=== PATIENT | female | born 1940 | race Hispanic/Latino ===

== ENCOUNTER 2018-11-02 10:27 | Inpatient (IN) | payer MEDICARE, BC ==
--- NOTE | 2018-11-02 11:26 | RAD ---
Date of service: 11/02/2018 HISTORY: Upper abdominal pain COMPARISON: 12/12/2016 FINDINGS: LUNGS: The lungs are hyperinflated and there is peribronchial thickening with chronic changes in both lungs. No focal consolidation. PLEURA: No pleural effusions or pneumothorax. CARDIOVASCULAR: The heart is normal in size. There are aortic atherosclerotic calcifications present. OSSEOUS STRUCTURES: Within normal limits for the patient's age. VISUALIZED UPPER ABDOMEN: Normal. OTHER FINDINGS: None. IMPRESSION: No active pulmonary disease. COPD.
--- NOTE | 2018-11-02 11:44 | ED PDOC ---
Arrival/HPI - General Chief Complaint: Abdominal Pain Time Seen by Provider: 11/02/18 10:33 Historian: Patient - History of Present Illness Narrative History of Present Illness (Text): 11/02/18 13:57 78 year old female with PMH of COPD, hypothyroidism presents to the emergency department complaining of abdominal pain x 1 day. Pt states the pain is epigastric and radiates through to her back and into her chest, described as sh genesis. Admits to one episode of vomiting this morning. Of note, pt had cholecystectomy in 2012. Denies fevers, chills, urinary symptoms,diarrhea, vaginal bleeding, vaginal discharge, headache, weakness, numbness, paresthesias, altered mental status, rash, skin color changes, or any other associated sy mptoms. PMD: Dr. Pratt Past Medical History - Infectious Disease Hx of Infectious Diseases: None - Tetanus Immunization Tetanus Immunization: Unknown - Cardiac Hx Cardiac Disorders: Yes Hx Hypertension: Yes Hx Pacemaker: No - Pulmonary Hx Respiratory Disorders: Yes Hx Chronic Obstructive Pulmonary Disease (COPD): Yes Hx Emphysema: Yes - Neurological Hx Neurological Disorder: No Hx Paralysis: No - HEENT Hx HEENT Disorder: No Hx Blind: No Hx Cataracts: No Hx Deafness: No Hx Difficulty Chewing: No Hx Epistaxis: No Hx Glaucoma: No Hx Macular Degeneration: No - Renal Hx Renal Failure: No - Endocrine/Metabolic Hx Diabetes Mellitus Type 1: No Hx Diabetes Mellitus Type 2: No Hx Hypothyroidism: Yes (polyp on thyroid) - Hematological/Oncological Hx Blood Transfusions: No Hx Blood Transfusion Reaction: No - Integumentary Hx Dermatological Disorder: No Hx Basal Cell Carcinoma: No Hx Eczema: No Hx Melanoma: No Hx Psoriasis: No Hx Squamous Cell Carcinoma: No - Musculoskeletal/Rheumatological Hx Musculoskeletal Disorders: No - Gastrointestinal Hx Gastrointestinal Disorders: No Hx Colostomy: No Hx Crohn's Disease: No Hx Diverticulitis: No Hx Gall Bladder Disease: Yes (cholecystectomy 2012) Hx Gastroesophageal Reflux: No Hx Ileostomy: No Hx Liver Failure: No Hx Pancreatitis: No HX Swallowing Problems: No - Genitourinary/Gynecological Hx Genitourinary Disorders: No Hx Hematuria: No Hx Incontinence: No Hx Sexually Transmitted Diseases: No Hx Urinary Tract Infection: No - Psychiatric Hx Emotional Abuse: No Hx Physical Abuse: No Hx Substance Use: No - Surgical History Hx Cholecystectomy: Yes - Anesthesia Hx Anesthesia Reactions: No Hx Malignant Hyperthermia: No - Suicidal Assessment Feels Threatened In Home Enviroment: No Family/Social History - Physician Review Nursing Documentation Reviewed: Yes Family/Social History: No Known Family HX Smoking Status: Former Smoker Hx Alcohol Use: No Hx Substance Use: No Hx Substance Use Treatment: No Allergies/Home Meds Allergies/Adverse Reactions: Allergies Penicillins Allergy (Verified 11/02/18 10:29) SWELLING Home Medications: Home Meds Medication Instructions Recorded Confirmed Levothyroxine Sodium [Levothroid] 0.05 mg PO DAILY 09/30/13 11/02/18 Tiotropium [Spiriva] 18 mcg IH DAILY 09/30/13 11/02/18 Valsartan/Hydrochlorothiazide 1 tab PO DAILY 09/30/13 11/02/18 [Valsartan-Hctz 320-12.5 mg Tab] Verapamil [Calan SR Tab] 240 mg PO DAILY 09/30/13 11/02/18 Aspirin [Aspirin Chewable] 81 mg PO DAILY 07/02/16 11/02/18 Budesonide 1 mg IH BID PRN 07/02/16 11/02/18 Fluticasone/Salmeterol 100/50 1 puff IH Q12 PRN 07/02/16 07/05/16 [Advair Diskus 100/50] Formoterol Fumarate [Perforomist] 20 mcg IH BID 07/02/16 11/02/18 Omega3/Dha/Epa/Fish Oil/Vit D3 1 each PO DAILY 07/02/16 11/02/18 [Fish Oil + Vitamin D-3 Softgel] Advanced Multi Ea Chew Tablet 1 tab PO DAILY 11/02/18 11/02/18 Aricept 5 mg PO DAILY 11/02/18 11/02/18 Incruse Ellipta 1 inh INH PRN PRN 11/02/18 11/02/18 Pepcid 20 mg PO DAILY 11/02/18 11/02/18 Umeclidinium Mccune [Incruse 11/02/18 Ellipta] Review of Systems - Physician Review All systems were reviewed & negative as marked: Yes - Review of Systems Constitutional: Normal. absent: Fatigue Eyes: Normal. absent: Vision Changes ENT: Normal. absent: Sinus Congestion Respiratory: SOB. absent: Cough, Sputum Cardiovascular: Chest Pain. absent: Palpitations, Syncope Gastrointestinal: Abdominal Pain, Vomiting. absent: Stool Changes, Constipation, Diarrhea, Appetite Changes Genitourinary Female: Normal. absent: Dysuria, Frequency Musculoskeletal: Back Pain. absent: Neck Pain Skin: Normal. absent: Rash Neurological: Normal. absent: Headache, Dizziness, Disequilibrium Endocrine: Normal Hemo/Lymphatic: Normal Psychiatric: Normal Physical Exam Vital Signs Reviewed: Yes Vital Signs Temp Pulse Resp BP Pulse Ox 11/02/18 10:50 97.9 F 85 19 134/66 93 L Temperature: Afebrile Blood Pressure: Normal Pulse: Regular Respiratory Rate: Normal Appearance: Positive for: Well-Appearing, Non-Toxic, Comfortable Pain Distress: None Mental Status: Positive for: Alert and Oriented X 3 - Systems Exam Head: Present: Atraumatic, Normocephalic Pupils: Present: PERRL Extroacular Muscles: Present: EOMI Conjunctiva: Present: Normal Mouth: Present: Moist Mucous Membranes Neck: Present: Normal Range of Motion Respiratory/Chest: Present: Clear to Auscultation, Good Air Exchange. No: Respiratory Distress, Accessory Muscle Use Cardiovascular: Present: Regular Rate and Rhythm, Normal S1, S2. No: Murmurs Abdomen: Present: Tenderness (epigastric, periumbilical), Normal Bowel Sounds. No: Distention, Peritoneal Signs, Rebound, Guarding Back: Present: Normal Inspection. No: CVA Tenderness, Paraspinal Tenderness Upper Extremity: Present: Normal Inspection, Normal ROM, NORMAL PULSES, Neurovascularly Intact, Capillary Refill < 2s. No: Cyanosis, Edema, Tenderness, Swelling Lower Extremity: Present: Normal Inspection, NORMAL PULSES, Normal ROM, Neurovascularly Intact, Capillary Refill < 2 s. No: Edema, Tenderness, Swelling, Temperature Abnormalties Neurological: Present: GCS=15, CN II-XII Intact, Speech Normal, Motor Func Grossly Intact, Normal Sensory Function, Gait Normal Skin: Present: Warm, Dry, Normal Color. No: Rashes Psychiatric: Present: Alert, Oriented x 3, Normal Insight, Normal Concentration, Normal Affect, Normal Mood Medical Decision Making ED Course and Treatment: Initial Plan: * CBC, CMP * Coags * Troponin * BNP * CXR * EKG * CT Angio, dissection protocol Labwork significant for elevated LFTs, total bili, and leukocytosis; VBG shock panel ordered Case discussed with ED attending, Dr. Post, who recommends Flagyl, Cipro, and a direct bilirubin level UA shows UTI Lactate <2, pt afebrile with stable vitals, no indication for code sepsis CXR shows COPD changes, no consolidation EKG shows no acute changes US negative for acute pathology. CT negative for dissection but significant for a mass v. stone in common bile duct. 14:[address] Raman, admitting for Dr. Pratt, who accepts patient for inpatient admission to med/surg floor with diagnosis of choledocholithiasis, leukocytosis, UTI. Recommends GI and ID consult. Patient and family updated on change in disposition. Patient resting comfortably in stretcher with stable vital signs at this time. - Lab Interpretations Lab Results: 11/02/18 11:30 11/02/18 11:30 Lab Results 11/02/18 13:26: Urine Color Dark yellow, Urine Appearance Slight-cloudy, Urine pH 6.0, Ur Specific [place] 1.025, Urine Protein Trace H, Urine Glucose (UA) Negative, Urine Ketones Negative, Urine Blood Trace-intact H, Urine Nitrate Positive H, Urine Bilirubin Moderate H, Urine Urobilinogen 4.0 H, Ur Leukocyte Esterase Small H, Urine RBC 5 - 10 H, Urine WBC 10 - 15 H, Ur Epithelial Cells 6 - 8 H, Amorphous Sediment Few, Urine Bacteria Many, Urine Other Uyeast 11/02/18 13:15: Ammonia 13 11/02/18 13:15: pO2 50, VBG pH 7.47 H, VBG pCO2 33.0 L, VBG HCO3 24.0, VBG Total CO2 25.0, VBG O2 Sat (Calc) 92.0 H, VBG Base Excess 0.9, VBG Potassium 3.5 L, Glucose 157 H, Lactate 1.3, FiO2 21.0, Sodium 138.0, Chloride 104.0, Venous Blood Potassium 3.5 L 11/02/18 11:30: Direct Bilirubin 3.0 H 11/02/18 11:30: TSH 3rd Generation 0.33 L 11/02/18 11:30: Hepatitis A IgM Ab Negative, Hep Bs Antigen Negative, Hep B Core IgM Ab Negative, Hepatitis C Antibody Negative 11/02/18 11:30: Alpha Fetoprotein 4.9 11/02/18 11:30: PT 11.5, INR 1.02, APTT 32.4 11/02/18 11:30: Sodium 139, Potassium 3.9, Chloride 102, Carbon Dioxide 25, Anion Gap 15, BUN 26 H, Creatinine 0.8, Est GFR ( Amer) > 60, Est GFR (Non-Af Amer) > 60, Random Glucose 149 H, Calcium 10.0, Magnesium 1.9, Total Bilirubin 3.8 H, AST 522 H, ALT 466 H, Alkaline Phosphatase 442 H, Lactate Dehydrogenase 1472 H, Total Creatine Kinase 175, Troponin I < 0.01 D, NT-Pro-B Natriuret Pep 1140 H, Total Protein 8.8 H, Albumin 4.5, Globulin 4.3, Albumin/Globulin Ratio 1.1, Lipase 99 11/02/18 11:30: WBC 23.9 H, RBC 4.12, Hgb 13.5, Hct 39.3, MCV 95.4, MCH 32.8, MCHC 34.4, RDW 13.5, Plt Count 188, MPV 11.2 H, Neut % (Auto) 90.9 H, Lymph % (Auto) 3.0 L, [place] % (Auto) 6.1 H, Eos % (Auto) 0.0 L, Baso % (Auto) 0.0, Lymph # (Auto) 0.7 L, [place] # (Auto) 1.5 H, Eos # (Auto) 0.0, Baso # (Auto) 0.01, Absolute Neuts (auto) 21.75 H, Neutrophils % (Manual) 92 H, Band Neutrophils % 2, Lymphocytes % (Manual) 5 L, Monocytes % (Manual) 1, Platelet Evaluation Normal, Anisocytosis (manual) Slight I have reviewed the lab results: Yes - RAD Interpretation Narrative RAD Interpretations (Text): 11/02/18 13:45 Abdominal US: FINDINGS: LIVER: Measures 13.5 cm. There is diffuse increased echogenicity of the liver parenchyma. No mass. No intrahepatic bile duct dilatation. GALLBLADDER: Surgically absent. COMMON BILE DUCT: Measures 1.7 mm. No stones. No dilatation. PANCREAS: Unremarkable as visualized. No mass. No ductal dilatation. RIGHT KIDNEY: Measures 9.9cm. Normal echogenicity. No calculus, mass, or hydronephrosis. LEFT KIDNEY: Measures 9.9cm. Normal echogenicity. No calculus, mass, or hydronephrosis. SPLEEN: Normal in size and contour. No mass. AORTA: No aneurysmal dilatation. IVC: Unremarkable. OTHER FINDINGS: None. IMPRESSION: Fatty liver. Status post cholecystectomy. CT Dissection Protocol: FINDINGS: CT ANGIOGRAPHY OF THE CHEST WITH & WITHOUT CONTRAST: AORTA (CHEST AND ABDOMEN): The thoracic and abdominal aorta are unremarkable, without aneurysm, dissection or rupture. No intramural thrombus identified in the thoracic aorta on the non-contrast ct of the chest. There are atherosclerotic calcifications at the origin of the celiac axis, superior mesenteric and renal arteries without significant narrowing. The celiac axis, superior mesenteric artery, inferior mesenteric artery and the renal arteries are widely patent. The pelvic arteries are unremarkable. LUNGS: The lungs are well inflated. There is centrilobular emphysema in the upper lobes. No nodules, mass or consolidation. There are no endobronchial lesions. There is bibasilar atelectasis and linear subsegmental atelectasis in the left lower lobe. MEDIASTINUM: No pericardial effusion. Normal caliber aorta and pulmonary arterial trunk. No aortic dissection. Mild cardiomegaly. LYMPH NODES: No pathologic lymphadenopathy. PLEURA: No pneumothorax. No pleural fluid. BONES: Within normal limits for the patient's age. OTHER FINDINGS: None. CT ANGIOGRAPHY OF THE ABDOMEN AND PELVIS WITH CONTRAST: LIVER: Allowing for angiographic face, there is patchy low-attenuation in the liver. There is mild intrahepatic ductal dilatation and pneumobilia likely related to prior sphincterotomy. There is severe diffuse dilatation of the common bile duct which measures 2.3 cm in maximum diameter. There is an apparent 1.4 x 2.1 cm hyperdense obstructing lesion in the distal common bile duct. GALLBLADDER AND BILE DUCTS: Surgically absent. PANCREAS: Mild fatty atrophy of the pancreas. No gross lesion or ductal dilatation. SPLEEN: Normal in size with homogeneous enhancement. ADRENALS: No discrete nodule. KIDNEYS AND URETERS: The kidneys are normal in size with homogeneous enhancement. VASCULATURE: There are advanced aortic atherosclerotic aortoiliac calcifications present. STOMACH AND BOWEL: The small bowel loops are normal in caliber. There is left colonic diverticulosis, more extensive in the sigmoid colon without CT evidence for acute diverticulitis. APPENDIX: Normal appendix. PERITONEUM: Unremarkable. No free fluid. No free air. LYMPH NODES: Unremarkable. No enlarged lymph nodes. BLADDER: Grossly normal in appearance. REPRODUCTIVE: The uterus is normal in size. BONES: No acute fracture. Within normal limits for the patient's age. OTHER FINDINGS: None. IMPRESSION: 1. No CT evidence for aortic aneurysm or aortic dissection. 2. Although tailored for evaluation of aortic dissection, no evidence for acute pulmonary embolism. 3. Centrilobular emphysema in the upper lobes of the lungs. 4. Patchy fatty liver. 5. Severe diffuse dilatation of the common bile duct with a 1.4 x 2.1 cm obstructing lesion in the distal common bile duct which may represent soft tissue mass versus noncalcified stone. Mild intrahepatic biliary ductal dilatation. Pneumobilia likely related to prior spin Corin me. Correlation with ERCP is advised. 6. Sigmoid diverticulosis without CT evidence for acute diverticulitis. Radiology Orders: 11/02/18 10:52 CHEST PORTABLE [RAD] Stat 11/02/18 10:57 ANGIOGRAPHY DISECTION PROTOCOL [CT] Stat - EKG Interpretation EKG Interpretation (Text): Rate 84; NSR with 1st degree AV block; No STEMI or other signs of acute ischemia Interpreted by ED Physician: Yes Type: 12 lead EKG Disposition/Present on Arrival - Present on Arrival Any Indicators Present on Arrival: No History of DVT/PE: No History of Uncontrolled Diabetes: No Urinary Catheter: No History of Decub. Ulcer: No History Surgical Site Infection Following: None - Disposition Have Diagnosis and Disposition been Completed?: Yes Diagnosis: Choledocholithiasis, Leukocytosis, Elevated LFTs, UTI (urinary tract infection) Disposition: HOSPITALIZED Disposition Time: 14:45 Patient Problems: Current Active Problems Problem Status Onset Choledocholithiasis Acute Elevated LFTs Acute Leukocytosis Acute UTI (urinary tract infection) Acute Condition: STABLE
[2018-11-02 11:56] LABS: BASO # 0.01 K/mm3 (0.0-2.0); HEMOGLOBIN 13.5 g/dL (12.0-16.0); LYMPH # 0.7 (1.2-3.4); MEAN CELL VOLUME 95.4 fl (80.0-105.0); MEAN CORPUSCULAR HEMOGLOBIN 32.8 pg (25.0-35.0); MEAN CORPUSCULAR HGB CONC 34.4 g/dl (31.0-37.0); MEAN PLATELET VOLUME 11.2 fl (7.0-11.0); MONO # 1.5 (0.1-0.6); MONO % 6.1 % (1.0-6.0); PLATELET COUNT 188 10^3/uL (120.0-450.0); RBC 4.12 10^6/uL (3.5-6.1); RED CELL DISTRIBUTION WIDTH 13.5 % (11.5-14.5); WHITE BLOOD COUNT 23.9 10^3/uL (4.5-11.0)
[2018-11-02 12:12] LABS: INR 1.02; PARTIAL THROMBOPLASTIN TIME 32.4 Seconds (26.9-38.3); PROTHROMBIN TIME 11.5 SECONDS (9.4-12.5)
[2018-11-02 12:20] LABS: ALB/GLOB RATIO 1.1 (1.1-1.8); ALBUMIN 4.5 g/dL (3.0-4.8); ALT/SGPT 466 U/L (7-56); AST/SGOT 522 U/L (14-36); BLOOD UREA NITROGEN 26 mg/dL (7-21); GFR NON-AFRICAN AMERICAN > 60; LIPASE 99 U/L (23-300)
[2018-11-02 12:28] LABS: ANISOCYTOSIS SLIGHT; BAND 2 % (0-2); LYMPHOCYTE 5 % (22.0-35.0); MONOCYTE 1 % (1.0-6.0); NEUTROPHIL 92 % (50.0-70.0); PLATELET ESTIMATE NORMAL (NORMAL)
[2018-11-02 12:36] LABS: B-TYPE NATRIURETIC PEPTIDE 1140 pg/mL (0-450); TROPONIN I < 0.01 ng/mL
[2018-11-02] MEDS ORDERED: Ciprofloxacin 400mg/200ml D5W 400 MG/200 ML BAG IVPB STA (12:47)
[2018-11-02] MEDS ORDERED: metroNIDAZOLE IV 500 mg/100 ml 500 MG/100 ML BAG IVPB STA (12:47)
--- NOTE | 2018-11-02 13:31 | US ---
Date of service: 11/02/2018 HISTORY: elevated LFT, epigastric pain COMPARISON: None. TECHNIQUE: Grayscale imaging was performed. FINDINGS: LIVER: Measures 13.5 cm. There is diffuse increased echogenicity of the liver parenchyma. No mass. No intrahepatic bile duct dilatation. GALLBLADDER: Surgically absent. COMMON BILE DUCT: Measures 1.7 mm. No stones. No dilatation. PANCREAS: Unremarkable as visualized. No mass. No ductal dilatation. RIGHT KIDNEY: Measures 9.9cm. Normal echogenicity. No calculus, mass, or hydronephrosis. LEFT KIDNEY: Measures 9.9cm. Normal echogenicity. No calculus, mass, or hydronephrosis. SPLEEN: Normal in size and contour. No mass. AORTA: No aneurysmal dilatation. IVC: Unremarkable. OTHER FINDINGS: None. IMPRESSION: Fatty liver. Status post cholecystectomy.
[2018-11-02 13:32] LABS: VENOUS BLOOD GAS BASE EXCESS 0.9 mmol/L (0.0-2.0); VENOUS BLOOD GAS PO2 50 mm/Hg (30-55); VENOUS BLOOD PH 7.47 (7.32-7.43)
[2018-11-02 13:45] LABS: URINE APPEARANCE SLIGHT-CLOUDY (CLEAR); URINE BILIRUBIN MODERATE (NEGATIVE); URINE BLOOD TRACE-INTACT (NEGATIVE); URINE COLOR DARK YELLOW (YELLOW); URINE GLUCOSE (UA) NEGATIVE (NEGATIVE); URINE LEUKOCYTE ESTERASE SMALL Leu/uL (NEGATIVE); URINE PROTEIN TRACE mg/dL (<30 mg/dL)
[2018-11-02 13:48] LABS: URINE AMORPHOUS SEDIMENT FEW /hpf; URINE BACTERIA MANY /hpf
--- NOTE | 2018-11-02 14:17 | CT ---
PROCEDURE: CT Angiography Chest, Abdomen and Pelvis with and without intravenous contrast HISTORY: abdominal, back, chest pain COMPARISON: None. TECHNIQUE: Contiguous axial images of the chest, abdomen and pelvis were obtained in the phase of aortic enhancement. A noncontrast enhanced CT of the chest was also obtained to evaluate for possible intramural thrombus. Coronal and sagittal reformats were generated. IV dose administered: 150 mL Omnipaque 350 Radiation dose: Total exam DLP = 1048.27 mGy-cm. This CT exam was performed using one or more of the following dose reduction techniques: Automated exposure control, adjustment of the mA and/or kV according to patient size, and/or use of iterative reconstruction technique. FINDINGS: CT ANGIOGRAPHY OF THE CHEST WITH & WITHOUT CONTRAST: AORTA (CHEST AND ABDOMEN): The thoracic and abdominal aorta are unremarkable, without aneurysm, dissection or rupture. No intramural thrombus identified in the thoracic aorta on the non-contrast ct of the chest. There are atherosclerotic calcifications at the origin of the celiac axis, superior mesenteric and renal arteries without significant narrowing. The celiac axis, superior mesenteric artery, inferior mesenteric artery and the renal arteries are widely patent. The pelvic arteries are unremarkable. LUNGS: The lungs are well inflated. There is centrilobular emphysema in the upper lobes. No nodules, mass or consolidation. There are no endobronchial lesions. There is bibasilar atelectasis and linear subsegmental atelectasis in the left lower lobe. MEDIASTINUM: No pericardial effusion. Normal caliber aorta and pulmonary arterial trunk. No aortic dissection. Mild cardiomegaly. LYMPH NODES: No pathologic lymphadenopathy. PLEURA: No pneumothorax. No pleural fluid. BONES: Within normal limits for the patient's age. OTHER FINDINGS: None. CT ANGIOGRAPHY OF THE ABDOMEN AND PELVIS WITH CONTRAST: LIVER: Allowing for angiographic face, there is patchy low-attenuation in the liver. There is mild intrahepatic ductal dilatation and pneumobilia likely related to prior sphincterotomy. There is severe diffuse dilatation of the common bile duct which measures 2.3 cm in maximum diameter. There is an apparent 1.4 x 2.1 cm hyperdense obstructing lesion in the distal common bile duct. GALLBLADDER AND BILE DUCTS: Surgically absent. PANCREAS: Mild fatty atrophy of the pancreas. No gross lesion or ductal dilatation. SPLEEN: Normal in size with homogeneous enhancement. ADRENALS: No discrete nodule. KIDNEYS AND URETERS: The kidneys are normal in size with homogeneous enhancement. VASCULATURE: There are advanced aortic atherosclerotic aortoiliac calcifications present. STOMACH AND BOWEL: The small bowel loops are normal in caliber. There is left colonic diverticulosis, more extensive in the sigmoid colon without CT evidence for acute diverticulitis. APPENDIX: Normal appendix. PERITONEUM: Unremarkable. No free fluid. No free air. LYMPH NODES: Unremarkable. No enlarged lymph nodes. BLADDER: Grossly normal in appearance. REPRODUCTIVE: The uterus is normal in size. BONES: No acute fracture. Within normal limits for the patient's age. OTHER FINDINGS: None. IMPRESSION: 1. No CT evidence for aortic aneurysm or aortic dissection. 2. Although tailored for evaluation of aortic dissection, no evidence for acute pulmonary embolism. 3. Centrilobular emphysema in the upper lobes of the lungs. 4. Patchy fatty liver. 5. Severe diffuse dilatation of the common bile duct with a 1.4 x 2.1 cm obstructing lesion in the distal common bile duct which may represent soft tissue mass versus noncalcified stone. Mild intrahepatic biliary ductal dilatation. Pneumobilia likely related to prior spin Corin me. Correlation with ERCP is advised. 6. Sigmoid diverticulosis without CT evidence for acute diverticulitis.
[2018-11-02] MEDS ORDERED: HYDROCHLOROTHIAZIDE PO SCH (15:00)
[2018-11-02] MEDS ORDERED: [UNRECOGNIZED DRUG - OTHER] PO SCH (15:00)
[2018-11-02] MEDS ORDERED: VALSARTAN PO SCH (15:00)
[2018-11-02] MEDS ORDERED: Verapamil 240 mg ER Tab PO SCH (15:00)
[2018-11-02] MEDS: Levothyroxine 50 MCG TAB PO SCH ×2 (15:38→16:57)
[2018-11-02] MEDS: Meropenem IV 1 gm in NS 1 GM/50 ML BAG IVPB SCH ×2 (16:57→21:15)
[2018-11-02] MEDS: Dextrose 5%/0.45% NS 1,000 ML IV SCH (17:16)
[2018-11-02 17:20] LABS: HEPATITIS B SURFACE AG Negative (NEGATIVE)
[2018-11-02 17:26] LABS: HEPATITIS A IGM NEGATIVE (NEGATIVE); HEPATITIS B CORE AB NEGATIVE (NEGATIVE)
[2018-11-02 17:30] VITALS: BMI 25.3
[2018-11-02 17:37] LABS: HEPATITIS C ANTIBODY NEGATIVE (NEGATIVE)
[2018-11-02] MEDS: Morphine 2 mg/ml ISec IVP PRN (19:10)
--- NOTE | 2018-11-02 20:39 | CARD ---
APPROVED REPORT Date of service: 11/02/2018 EKG Measurement Heart [id number] <Conclusion> Sinus rhythm with 1st degree AV block Minor NDSTT abnormalities Otherwise normal ECG
--- NOTE | 2018-11-02 22:45 | CON ---
DATE: 11/02/2018 The patient is in the emergency room. CHIEF COMPLAINT: Abdominal pain x1 day. HISTORY: This is a 78-year-old female with a history of end-stage chronic obstructive lung disease, emphysema, hypothyroidism, hypertension, coronary artery disease, history of cholecystectomy, who is admitted through the emergency room complaining of abdominal pain. The patient states that she had some nausea and some abdominal pain, epigastric in location, radiating to her back and to her chest, is described as sharp, associated with vomiting, nausea. She denies any fevers, any chills. No urinary symptoms. No diarrhea. No symptoms. No neurological symptoms. No headaches or blurred vision. REVIEW OF SYSTEMS: Twelve-point review of systems is performed. PAST MEDICAL HISTORY: Significant for hypertension, coronary artery disease, chronic obstructive lung disease, hypothyroidism. PAST SURGICAL HISTORY: Significant for cholecystectomy in 2012. ALLERGIES: THE PATIENT IS ALLERGIC TO PENICILLIN, SHE STATES SHE DEVELOPED A RASH ONCE. MEDICATIONS AT HOME: Include the patient to be on aspirin, Levothroid, valsartan, omeprazole. PHYSICAL EXAMINATION: GENERAL: She is in bed, appearing weak. VITAL SIGNS: Temperature of 97.9, heart rate of 96, respiratory rate of 19, blood pressure is 130/60 with O2 saturation of 93%. HEENT: Unremarkable. NECK: Supple. LUNGS: Have decreased breath sounds. HEART: Normal S1, S2. ABDOMEN: Right upper quadrant tenderness. No rebound or guarding. No masses. LABORATORY EXAMINATION: Reveals a white count of 23,900, hemoglobin of 13, platelets of 188. Coagulation is noted. Chemistries reveal the LFTs are elevated, BUN of 26, creatinine of 0.8. BNP is 1140. Urinalysis is noted, 10-15 WBCs. CAT scan is reviewed and noted. The patient also had an abdominal ultrasound which is also reviewed. The emergency room chart is reviewed. ASSESSMENT AND PLAN: A 78-year-old female with chronic obstructive lung disease, emphysema, hypothyroidism, hypertension, coronary artery disease, history of cholecystectomy in 2012, admitted now with right upper quadrant pain, leukocytosis, tachycardia, liver function test elevation, hypoxia with severe sepsis and ascending cholangitis and retained common bile duct stone probably, and THE PATIENT IS ALLERGIC TO PENICILLIN. We will start meropenem, order blood cultures and urine culture, surgical consultation and GI consultation, and we will follow closely with you. Dhaval Pérez MD
--- NOTE | 2018-11-03 02:55 | CON ---
DATE: 11/02/2018 REASON FOR CONSULTATION: Abdominal pain and elevated LFTs. HISTORY OF PRESENT ILLNESS: This 78-year-old patient was seen and evaluated earlier. The patient's daughter was at the bedside at the time of examination. This patient complained of acute onset of nausea and abdominal pain, started yesterday night, persisted in the morning, worsening of the symptoms. She described the pain mainly in the epigastric area and lower chest radiating to the back. The patient did have a CT with aortic dissection protocol in the ER. Denies any fever. PAST MEDICAL HISTORY: Other past medical history significant for history of CBD stone status post ERCP and removal of the stone, history of chronic gastroesophageal reflux disease, Knowles's, history of esophageal ulceration, coronary artery disease, COPD, hypothyroidism. PAST SURGICAL HISTORY: Significant for status post cholecystectomy in 2012. ALLERGIES: ALLERGIC TO PENICILLIN. SOCIAL HISTORY: She is an ex-smoker. Denies alcohol use. REVIEW OF SYSTEMS: Positive as above. Other systems reviewed. No dysuria and no increased frequency. No history of fever. PHYSICAL EXAMINATION GENERAL: The patient is lying on the bed, not in acute distress. VITAL SIGNS: Pulse 91 per minute, blood pressure 122/82, respiration is 18, temperature is 99.4, O2 saturation 99%. HEENT: Atraumatic and anicteric. NECK: Supple. HEART: S1 and S2 heard. LUNGS: Bilateral air entry present. ABDOMEN: Soft. There is mild present epigastric area. EXTREMITIES: No cyanosis. No clubbing. NEUROLOGIC: Alert and oriented, moves all extremities. LABORATORY DATA: WBC count elevated to 29.3, hemoglobin 13.5, hematocrit 39.3, platelet count 188,000. Chemistries; AST of 522, ALT 466, alkaline phosphatase 442. Total bilirubin is 3.8, direct bilirubin 3. The patient did have an ultrasound scan of the abdomen, it is reported as common bile duct dilated to 1.7 cm. There is no evidence of intraluminal lesions or gallstones noticed. The patient did have CT angio done, which was negative for dissection. There is some calcification noticed at the origin of the celiac disease superior mesenteric artery; otherwise patent. Negative for acute aortic dissection. is noticed in the distal common bile duct area, that is the noticed. IMPRESSION: This 78-year-old patient with a history of and the patient admitted with lower chest pain epigastric area radiating to the back. The CT ultrasound shows common bile duct intraluminal defect. The patient's differential diagnosis includes common bile duct stone, less likely gallbladder malignancy also to be considered. The patient did have endoscopic retrograde cholangiopancreatography/sphincterotomy and removal of the stones many years ago. Other comorbidities include chronic obstructive pulmonary disease, hypothyroidism, hypertension, coronary artery disease. RECOMMENDATIONS: 1. Follow up with dixon cultures. 2. Would recommend MRCP to further evaluate the common bile duct. 3. Would benefit from the ERCP EUS. Thank you very much for allowing us to participate in the care of the patient. We will continue the antibiotics as per ID. Agustin Meek MD
[2018-11-03] MEDS: Meropenem IV 1 gm in NS 1 GM/50 ML BAG IVPB SCH ×2 (05:30→21:13)
[2018-11-03] MEDS: Morphine 2 mg/ml ISec IVP PRN (06:39)
[2018-11-03 07:02] LABS: HEMOGLOBIN 11.1 g/dL (12.0-16.0); MEAN CELL VOLUME 94.5 fl (80.0-105.0); MEAN CORPUSCULAR HEMOGLOBIN 32.4 pg (25.0-35.0); MEAN CORPUSCULAR HGB CONC 34.3 g/dl (31.0-37.0); MEAN PLATELET VOLUME 11.4 fl (7.0-11.0); RBC 3.43 10^6/uL (3.5-6.1); RED CELL DISTRIBUTION WIDTH 14.1 % (11.5-14.5)
[2018-11-03] MEDS: Dextrose 5%/0.45% NS 1,000 ML IV SCH (07:15)
[2018-11-03 07:31] LABS: WHITE BLOOD COUNT 37.9 10^3/uL (4.5-11.0)
--- NOTE | 2018-11-03 07:41 | CP.PCM.PN ---
Subjective - Date & Time of Evaluation Date of Evaluation: 11/03/18 Time of Evaluation: 07:41 Objective - Vital Signs/Intake and Output Vital Signs (last 24 hours): Temp Pulse Resp BP Pulse Ox 99.4 F 72 18 122/82 99 11/02/18 16:40 11/02/18 17:11 11/02/18 17:11 11/02/18 16:57 11/02/18 16:40 Intake and Output: 11/03/18 11/03/18 06:59 18:59 Intake Total 120 Balance 120 - Medications Medications: Current Medications Aspirin (Aspirin Chewable) 81 mg PO DAILY [facility] Last Admin: 11/02/18 15:38 Dose: Not Given Hydrochlorothiazide (Microzide) 12.5 mg PO DAILY [facility] Last Admin: 11/02/18 16:59 Dose: 12.5 mg Meropenem (Merrem Iv 1 Gm Premix) 1 gm in 50 mls @ 100 mls/hr IVPB Q8 [facility]; Protocol Stop: 11/10/18 16:01 Last Admin: 11/03/18 05:30 Dose: 100 mls/hr Dextrose/Sodium Chloride (Dextrose 5%/0.45% Ns 1000 Ml) 1,000 mls @ 100 mls/hr IV .Q10H [facility] Last Admin: 11/03/18 07:15 Dose: 100 mls/hr Levothyroxine Sodium (Synthroid) 50 mcg PO DAILY [facility] Last Admin: 11/02/18 16:57 Dose: 50 mcg Morphine Sulfate (Morphine) 2 mg IVP Q4H PRN PRN Reason: Pain, severe (8-10) Last Admin: 11/03/18 06:39 Dose: 2 mg Ondansetron HCl (Zofran Inj) 4 mg IVP Q6H PRN PRN Reason: Nausea/Vomiting Last Admin: 11/02/18 18:21 Dose: 4 mg Valsartan (Diovan) 320 mg PO DAILY [facility] Last Admin: 11/02/18 16:57 Dose: 320 mg Verapamil HCl (Calan Sr Tab) 240 mg PO DAILY [facility] Last Admin: 11/02/18 16:57 Dose: 240 mg - Labs Labs: 11/03/18 06:30 11/02/18 11:30 PT 11.5 SECONDS (9.4-12.5) 11/02/18 11:30 INR 1.02 11/02/18 11:30 APTT 32.4 Seconds (26.9-38.3) 11/02/18 11:30
[2018-11-03 08:18] LABS: ALBUMIN 3.4 g/dL (3.0-4.8); CALCIUM 8.8 mg/dL (8.4-10.5)
[2018-11-03] MEDS ORDERED: Magnesium Sulfate 1 gm in D5W 1 GM/100 ML BAG IVPB ONE (08:59)
[2018-11-03] MEDS: Sodium Chloride 0.9% 1,000 ML IV SCH ×2 (09:15→22:00)
--- NOTE | 2018-11-03 10:18 | CP.PCM.HP ---
<Mercy Maldonado - Last Filed: 11/03/18 17:36> History of Present Illness - History of Present Illness History of Present Illness: Mercy Maldonado, PGY2, H&P for Dr Webb: CC: abdominal pain This is a 78 year old female with PMH cholecystectomy, CBD stone s/p ERCP, presents to ED for abdominal pain for 1 day. Patient describes the pain as epigastric, radiating to her back and into her chest, described as sharp. Reports one episode of vomiting. Denies fevers, chills, urinary symptoms, short ness of breath, jaundice/yellowing of skin, headache, leg swelling, neck pain, weakness, mental status changes. In ED, patient found to have CBD dilatation on imaging with elevated wbc, elevated LFTs, hyperbilirubinemia, ALP elevation. PMD: Dr. Pratt 12 point ROS obtained and negative, except as per HPI. PMH: COPD, hypothyroidism, chronic GERD, history of CBD stone s/p ERCP and removal of stone PSH: cholecystectomy (2012) All: PCN FH: noncontributory SH: prior smoker, no alcohol/drug use. Present on Admission - Present on Admission Any Indicators Present on Admission: No History of DVT/PE: No History of Uncontrolled Diabetes: No Urinary Catheter: No Decubitus Ulcer Present: No Review of Systems - Review of Systems All systems: reviewed and no additional remarkable complaints except Review of Systems: as per hPI Past Patient History - Infectious Disease Hx of Infectious Diseases: None - Tetanus Immunizations Tetanus Immunization: Unknown - Past Social History Smoking Status: Former Smoker - CARDIAC Hx Cardiac Disorders: Yes Hx Hypertension: Yes Hx Pacemaker: No - PULMONARY Hx Respiratory Disorders: Yes Hx Chronic Obstructive Pulmonary Disease (COPD): Yes Hx Emphysema: Yes - NEUROLOGICAL Hx Neurological Disorder: No - HEENT Hx HEENT Problems: No Hx Blind: No Hx Cataracts: No Hx Deafness: No Hx Difficulty Chewing: No Hx Epistaxis: No Hx Glaucoma: No Hx Macular Degeneration: No - RENAL Hx Renal Failure: No - ENDOCRINE/METABOLIC Hx Endocrine Disorders: Yes Hx Diabetes Mellitus Type 1: No Hx Diabetes Mellitus Type 2: No Hx Hypothyroidism: Yes (polyp on thyroid) - HEMATOLOGICAL/ONCOLOGICAL Hx Blood Disorders: No Hx AIDS: No Hx Anemia: No Hx Chemotherapy: No Hx Cirrhosis: No Hx Hepatitis A: No Hx Hepatitis B: No Hx Hepatitis C: No Hx Metastesis: No Hx Shingles: No Hx Unexplained Bleeding: No - INTEGUMENTARY Hx Dermatological Problems: No Hx Basil Cell: No Hx Eczema: No Hx Melanoma: No Hx Psoriasis: No Hx Squamous Cell: No - MUSCULOSKELETAL/RHEUMATOLOGICAL Hx Falls: No Hx Unsteady Gait: Yes (ambulates with cane) - GASTROINTESTINAL Hx Gastrointestinal Disorders: Yes Hx Colostomy: No Hx Crohn's Disease: No Hx Diverticulitis: No Hx Gall Bladder Disease: Yes (cholecystectomy 2012) Hx Gastroesophageal Reflux: No Hx Ileostomy: No Hx Liver Failure: No Hx Pancreatitis: No HX Swallowing Problems: No - GENITOURINARY/GYNECOLOGICAL Hx Genitourinary Disorders: No Hx Hematuria: No Hx Incontinence: No Hx Sexually Transmitted Disorders: No Hx Urinary Tract Infection: No - PSYCHIATRIC Hx Psychophysiologic Disorder: No Hx Emotional Abuse: No Hx Physical Abuse: No Hx Substance Use: No - SURGICAL HISTORY Hx Surgeries: Yes Hx Cholecystectomy: Yes - ANESTHESIA Hx Anesthesia Reactions: No Hx Malignant Hyperthermia: No Meds Allergies/Adverse Reactions: Allergies Allergy/AdvReac Type Severity Reaction Status Date / Time Penicillins Allergy SWELLING Verified 11/02/18 10:29 Physical Exam - Constitutional Appears: Non-toxic - Head Exam Head Exam: ATRAUMATIC, NORMOCEPHALIC - Eye Exam Eye Exam: EOMI. absent: Nystagmus, Scleral icterus Pupil Exam: PERRL. absent: Miosis, Mydriatic - ENT Exam ENT Exam: Mucous Membranes Moist - Neck Exam Neck exam: Positive for: Full Rom - Respiratory Exam Respiratory Exam: Clear to Auscultation Bilateral. absent: Accessory Muscle Use, Wheezes, Respiratory Distress - Cardiovascular Exam Cardiovascular Exam: RRR, +S1, +S2. absent: Systolic Murmur - GI/Abdominal Exam GI & Abdominal Exam: Hyperactive Bowel Sounds, Tenderness - Extremities Exam Extremities exam: Positive for: normal inspection. Negative for: pedal edema - Back Exam Back exam: NORMAL INSPECTION - Neurological Exam Neurological exam: Alert, Oriented x3 - Psychiatric Exam Psychiatric exam: Normal Affect, Normal Mood - Skin Skin Exam: Dry, Warm Results - Vital Signs Recent Vital Signs: Last Vital Signs Temp 98.4 F 11/03/18 06:00 Pulse 81 11/03/18 06:00 Resp 20 11/03/18 06:00 BP 92/51 L 11/03/18 06:00 Pulse Ox 95 11/03/18 06:00 - Labs Result Diagrams: 11/03/18 06:30 11/03/18 06:30 Labs: Laboratory Results - last 24 hr 11/02/18 11/02/18 11/02/18 11:30 11:30 11:30 WBC 23.9 H RBC 4.12 Hgb 13.5 Hct 39.3 MCV 95.4 MCH 32.8 MCHC 34.4 RDW 13.5 Plt Count 188 MPV 11.2 H Neut % (Auto) 90.9 H Lymph % (Auto) 3.0 L [place] % (Auto) 6.1 H Eos % (Auto) 0.0 L Baso % (Auto) 0.0 Lymph # (Auto) 0.7 L [place] # (Auto) 1.5 H Eos # (Auto) 0.0 Baso # (Auto) 0.01 Absolute Neuts (auto) 21.75 H Neutrophils % (Manual) 92 H Band Neutrophils % 2 Lymphocytes % (Manual) 5 L Monocytes % (Manual) 1 Platelet Evaluation Normal Anisocytosis (manual) Slight PT 11.5 INR 1.02 APTT 32.4 pO2 VBG pH VBG pCO2 VBG HCO3 VBG Total CO2 VBG O2 Sat (Calc) VBG Base Excess VBG Potassium Glucose Lactate FiO2 Sodium 139 Potassium 3.9 Chloride 102 Carbon Dioxide 25 Anion Gap 15 BUN 26 H Creatinine 0.8 Est GFR ( Amer) > 60 Est GFR (Non-Af Amer) > 60 Random Glucose 149 H Calcium 10.0 Phosphorus Magnesium 1.9 Total Bilirubin 3.8 H Direct Bilirubin AST 522 H ALT 466 H Alkaline Phosphatase 442 H Ammonia Lactate Dehydrogenase 1472 H Total Creatine Kinase 175 Troponin I < 0.01 D NT-Pro-B Natriuret Pep 1140 H Total Protein 8.8 H Albumin 4.5 Globulin 4.3 Albumin/Globulin Ratio 1.1 Lipase 99 Alpha Fetoprotein TSH 3rd Generation Venous Blood Potassium Urine Color Urine Appearance Urine pH Ur Specific [place] Urine Protein Urine Glucose (UA) Urine Ketones Urine Blood Urine Nitrate Urine Bilirubin Urine Urobilinogen Ur Leukocyte Esterase Urine RBC Urine WBC Ur Epithelial Cells Amorphous Sediment Urine Bacteria Urine Other Hepatitis A IgM Ab Hep Bs Antigen Hep B Core IgM Ab Hepatitis C Antibody 11/02/18 11/02/18 11/02/18 11:30 11:30 11:30 WBC RBC Hgb Hct MCV MCH MCHC RDW Plt Count MPV Neut % (Auto) Lymph % (Auto) [place] % (Auto) Eos % (Auto) Baso % (Auto) Lymph # (Auto) [place] # (Auto) Eos # (Auto) Baso # (Auto) Absolute Neuts (auto) Neutrophils % (Manual) Band Neutrophils % Lymphocytes % (Manual) Monocytes % (Manual) Platelet Evaluation Anisocytosis (manual) PT INR APTT pO2 VBG pH VBG pCO2 VBG HCO3 VBG Total CO2 VBG O2 Sat (Calc) VBG Base Excess VBG Potassium Glucose Lactate FiO2 Sodium Potassium Chloride Carbon Dioxide Anion Gap BUN Creatinine Est GFR ( Amer) Est GFR (Non-Af Amer) Random Glucose Calcium Phosphorus Magnesium Total Bilirubin Direct Bilirubin AST ALT Alkaline Phosphatase Ammonia Lactate Dehydrogenase Total Creatine Kinase Troponin I NT-Pro-B Natriuret Pep Total Protein Albumin Globulin Albumin/Globulin Ratio Lipase Alpha Fetoprotein 4.9 TSH 3rd Generation 0.33 L Venous Blood Potassium Urine Color Urine Appearance Urine pH Ur Specific [place] Urine Protein Urine Glucose (UA) Urine Ketones Urine Blood Urine Nitrate Urine Bilirubin Urine Urobilinogen Ur Leukocyte Esterase Urine RBC Urine WBC Ur Epithelial Cells Amorphous Sediment Urine Bacteria Urine Other Hepatitis A IgM Ab Negative Hep Bs Antigen Negative Hep B Core IgM Ab Negative Hepatitis C Antibody Negative 11/02/18 11/02/18 11/02/18 11:30 13:15 13:15 WBC RBC Hgb Hct MCV MCH MCHC RDW Plt Count MPV Neut % (Auto) Lymph % (Auto) [place] % (Auto) Eos % (Auto) Baso % (Auto) Lymph # (Auto) [place] # (Auto) Eos # (Auto) Baso # (Auto) Absolute Neuts (auto) Neutrophils % (Manual) Band Neutrophils % Lymphocytes % (Manual) Monocytes % (Manual) Platelet Evaluation Anisocytosis (manual) PT INR APTT pO2 50 VBG pH 7.47 H VBG pCO2 33.0 L VBG HCO3 24.0 VBG Total CO2 25.0 VBG O2 Sat (Calc) 92.0 H VBG Base Excess 0.9 VBG Potassium 3.5 L Glucose 157 H Lactate 1.3 FiO2 21.0 Sodium 138.0 Potassium Chloride 104.0 Carbon Dioxide Anion Gap BUN Creatinine Est GFR ( Amer) Est GFR (Non-Af Amer) Random Glucose Calcium Phosphorus Magnesium Total Bilirubin Direct Bilirubin 3.0 H AST ALT Alkaline Phosphatase Ammonia 13 Lactate Dehydrogenase Total Creatine Kinase Troponin I NT-Pro-B Natriuret Pep Total Protein Albumin Globulin Albumin/Globulin Ratio Lipase Alpha Fetoprotein TSH 3rd Generation Venous Blood Potassium 3.5 L Urine Color Urine Appearance Urine pH Ur Specific [place] Urine Protein Urine Glucose (UA) Urine Ketones Urine Blood Urine Nitrate Urine Bilirubin Urine Urobilinogen Ur Leukocyte Esterase Urine RBC Urine WBC Ur Epithelial Cells Amorphous Sediment Urine Bacteria Urine Other Hepatitis A IgM Ab Hep Bs Antigen Hep B Core IgM Ab Hepatitis C Antibody 11/02/18 11/03/18 11/03/18 13:26 06:30 06:30 WBC 37.9 H* D RBC 3.43 L Hgb 11.1 L D Hct 32.4 L MCV 94.5 MCH 32.4 MCHC 34.3 RDW 14.1 Plt Count 138 MPV 11.4 H Neut % (Auto) Lymph % (Auto) [place] % (Auto) Eos % (Auto) Baso % (Auto) Lymph # (Auto) [place] # (Auto) Eos # (Auto) Baso # (Auto) Absolute Neuts (auto) Neutrophils % (Manual) Band Neutrophils % Lymphocytes % (Manual) Monocytes % (Manual) Platelet Evaluation Anisocytosis (manual) PT INR APTT pO2 VBG pH VBG pCO2 VBG HCO3 VBG Total CO2 VBG O2 Sat (Calc) VBG Base Excess VBG Potassium Glucose Lactate FiO2 Sodium 135 Potassium 4.1 Chloride 103 Carbon Dioxide 21 Anion Gap 16 BUN 40 H Creatinine 2.0 H Est GFR ( Amer) 29 Est GFR (Non-Af Amer) 24 Random Glucose 146 H Calcium 8.8 Phosphorus 3.4 Magnesium 1.6 L Total Bilirubin 5.5 H Direct Bilirubin AST 181 H D ALT 282 H Alkaline Phosphatase 298 H D Ammonia Lactate Dehydrogenase Total Creatine Kinase Troponin I NT-Pro-B Natriuret Pep Total Protein 6.8 Albumin 3.4 Globulin 3.4 Albumin/Globulin Ratio 1.0 L Lipase Alpha Fetoprotein TSH 3rd Generation Venous Blood Potassium Urine Color Dark yellow Urine Appearance Slight-cloudy Urine pH 6.0 Ur Specific [place] 1.025 Urine Protein Trace H Urine Glucose (UA) Negative Urine Ketones Negative Urine Blood Trace-intact H Urine Nitrate Positive H Urine Bilirubin Moderate H Urine Urobilinogen 4.0 H Ur Leukocyte Esterase Small H Urine RBC 5 - 10 H Urine WBC 10 - 15 H Ur Epithelial Cells 6 - 8 H Amorphous Sediment Few Urine Bacteria Many Urine Other Uyeast Hepatitis A IgM Ab Hep Bs Antigen Hep B Core IgM Ab Hepatitis C Antibody Assessment & Plan - Assessment and Plan (Free Text) Assessment: 1. Abdominal pain 2/2 ascending cholangitis - CT showed severe diffuse dilatation of the common bile duct with a 1.4 x 2.1 cm obstructing lesion in the distal common bile duct which may represent soft tissue mass versus noncalcified stone. Mild intrahepatic biliary ductal dilatation. Pneumobilia likely related to prior spin Corin me. Correlation with ERCP is advised. - GI Dr Meek consulted. Went for ERCP today, put in 10 Japanese 7 cm biliary stent, drained pus like material. difficult post extubation, patient subsequently transferred to ICU. - NPO - LFTs trending down today, monitor - acute hepatitis panel negative. - ID on board. On Merrem. - blood cultures 2/2 shows gram neg yaneli. - ICU management 2. ABILIO 2/2 medication induced vs sepsis - Cr 2.0 today (from 0.8 yesterday) - given toradol 15 mg IV overnight - low BP this AM as well - will stop anti-HTN - diovan and verapamil - monitor 3. Fatty liver - monitor LFTs 4. Hypomagnesemia - repleted - monitor 5. Low TSH - TSH 0.33, will obtain free T4 - home synthroid - monitor 6. UTI: - UA positive for UTI - urine culture growing gram neg yaneli - blood cultures 2/2 shows gram neg yaneli. - ID on board. on Merrem. PPX: protonix, SCDs Case discussed with Dr Webb. <Alen Webb S - Last Filed: 11/03/18 17:46> Results - Vital Signs Recent Vital Signs: Last Vital Signs Temp 96.9 F L 11/03/18 17:00 Pulse 93 H 11/03/18 17:00 Resp 14 11/03/18 17:00 BP 117/60 11/03/18 17:00 Pulse Ox 99 11/03/18 17:00 - Labs Result Diagrams: 11/03/18 06:30 11/03/18 06:30 Labs: Laboratory Results - last 24 hr 11/03/18 11/03/18 11/03/18 06:30 06:30 16:39 WBC 37.9 H* D RBC 3.43 L Hgb 11.1 L D Hct 32.4 L MCV 94.5 MCH 32.4 MCHC 34.3 RDW 14.1 Plt Count 138 MPV 11.4 H pCO2 48 H pO2 159.0 H HCO3 20.6 L ABG pH 7.24 L ABG Total CO2 22.1 ABG O2 Saturation 100.2 H ABG O2 Content 15.9 ABG Base Excess -6.8 L ABG Hemoglobin 11.5 L ABG Carboxyhemoglobin 2.2 H POC ABG HHb (Measured) -0.2 L ABG Methemoglobin 1.4 ABG O2 Capacity 15.9 L Hgb O2 Saturation 96.6 FiO2 50.0 Sodium 135 Potassium 4.1 Chloride 103 Carbon Dioxide 21 Anion Gap 16 BUN 40 H Creatinine 2.0 H Est GFR ( Amer) 29 Est GFR (Non-Af Amer) 24 Random Glucose 146 H Calcium 8.8 Phosphorus 3.4 Magnesium 1.6 L Total Bilirubin 5.5 H AST 181 H D ALT 282 H Alkaline Phosphatase 298 H D Total Protein 6.8 Albumin 3.4 Globulin 3.4 Albumin/Globulin Ratio 1.0 L Assessment & Plan - Assessment and Plan (Free Text) Assessment: Pt seen and examined by me. I have reviewed the note of the medical equipment repairer and I agree with it. I have discussed the assessment and plan with the resident. I have reviewed the medications and the last labs. Please see my dictated note.
[2018-11-03] MEDS: Levothyroxine 50 MCG TAB PO SCH (10:27)
[2018-11-03] MEDS ORDERED: Iohexol 240 (50 ml) ONE (11:02)
[2018-11-03] MEDS ORDERED: Glucagon Recombinant 1 mg Inj ONE (11:03)
--- NOTE | 2018-11-03 11:10 | CP.PCM.APN ---
Subjective - Date & Time of Evaluation Date of Evaluation: 11/03/18 Time of Evaluation: 08:30 - Subjective Subjective: Pt seen and examined at bedside. Denies abdominal pain, nausea or vomiting. Pt in no acute distress. Objective - Vital Signs/Intake and Output Vital Signs (last 24 hours): Temp Pulse Resp BP Pulse Ox 98.4 F 81 20 92/51 L 95 11/03/18 06:00 11/03/18 06:00 11/03/18 06:00 11/03/18 06:00 11/03/18 06:00 Intake and Output: 11/03/18 11/03/18 06:59 18:59 Intake Total 120 Balance 120 - Medications Medications: Current Medications Aspirin (Aspirin Chewable) 81 mg PO DAILY [facility] Last Admin: 11/03/18 10:26 Dose: Not Given Meropenem (Merrem Iv 1 Gm Premix) 1 gm in 50 mls @ 100 mls/hr IVPB Q8 [facility]; Protocol Stop: 11/10/18 16:01 Last Admin: 11/03/18 05:30 Dose: 100 mls/hr Sodium Chloride (Sodium Chloride 0.9%) 1,000 mls @ 75 mls/hr IV .[id number] [facility] Stop: 11/04/18 11:54 Levothyroxine Sodium (Synthroid) 50 mcg PO DAILY [facility] Last Admin: 11/03/18 10:27 Dose: Not Given Morphine Sulfate (Morphine) 2 mg IVP Q4H PRN PRN Reason: Pain, severe (8-10) Last Admin: 11/03/18 06:39 Dose: 2 mg Ondansetron HCl (Zofran Inj) 4 mg IVP Q6H PRN PRN Reason: Nausea/Vomiting Last Admin: 11/02/18 18:21 Dose: 4 mg - Labs Labs: 11/03/18 06:30 11/03/18 06:30 PT 11.5 SECONDS (9.4-12.5) 11/02/18 11:30 INR 1.02 11/02/18 11:30 APTT 32.4 Seconds (26.9-38.3) 11/02/18 11:30 - Constitutional Appears: No Acute Distress - Head Exam Head Exam: ATRAUMATIC - Respiratory Exam Respiratory Exam: Clear to Ausculation Bilateral, NORMAL BREATHING PATTERN - Cardiovascular Exam Cardiovascular Exam: REGULAR RHYTHM, +S1, +S2 - GI/Abdominal Exam GI & Abdominal Exam: Soft, Normal Bowel Sounds - Rectal Exam Rectal Exam: Deferred - Neurological Exam Neurological Exam: Alert, Awake, Oriented x3 Assessment and Plan - Assessment and Plan (Free Text) Assessment: Pt is a 78 y.o. female with pmhx of COPD, hypothyroid who presented in ED with c/o abdominal pain radiating to back and chest with one episode of vomiting. ITS Impressions Chest X-Ray 11/02/18 10:52 IMPRESSION: No active pulmonary disease. COPD. Angiography CT 11/02/18 10:57 IMPRESSION: 1. No CT evidence for aortic aneurysm or aortic dissection. 2. Although tailored for evaluation of aortic dissection, no evidence for acute pulmonary embolism. 3. Centrilobular emphysema in the upper lobes of the lungs. 4. Patchy fatty liver. 5. Severe diffuse dilatation of the common bile duct with a 1.4 x 2.1 cm obstructing lesion in the distal common bile duct which may represent soft tissue mass versus noncalcified stone. Mild intrahepatic biliary ductal dilatation. Pneumobilia likely related to prior spin Corin me. Correlation with ERCP is advised. 6. Sigmoid diverticulosis without CT evidence for acute diverticulitis. Abdomen Ultrasound 11/02/18 12:25 IMPRESSION: Fatty liver. Status post cholecystectomy. Plan: Pending ERCP On Merrem per ID recs On IVFs Initial Blood Cx growing gram neg yaneli, will repeat GI and ID on consult Meds per MAR Will continue to follow
[2018-11-03] MEDS ORDERED: Indomethacin 50 MG Suppository PR ONE (13:17)
[2018-11-03] MEDS ORDERED: Propofol 10 mg/ml Inj (20 ML) ONE (14:39)
[2018-11-03] MEDS ORDERED: Midazolam 2 MG/2 ML VIAL ONE (14:40)
[2018-11-03] MEDS ORDERED: Rocuronium 10 mg/ml (5 ml) ONE (14:41)
[2018-11-03] MEDS ORDERED: Sodium Chloride 0.9% 1,000 ML IV SCH (14:45)
[2018-11-03] MEDS ORDERED: ePHEDrine 50 mg/ml Inj ONE (15:29)
[2018-11-03] MEDS ORDERED: Neostigmine Methylsulfate 3mg/3ml Syringe IV ONE (15:31)
[2018-11-03] MEDS ORDERED: Glycopyrrolate 0.2 mg/ml (2ml vial) ONE (15:31)
[2018-11-03] MEDS ORDERED: Naloxone 0.4 mg/ml Inj (Adult) IVP ONE (15:51)
[2018-11-03] MEDS ORDERED: Naloxone 0.4 mg/ml Inj (Adult) ONE (15:51)
[2018-11-03] MEDS ORDERED: Sodium Chloride 0.9% 1,000 ML IV STA (16:38)
[2018-11-03 16:42] LABS: ARTERIAL BLOOD GAS HCO3 20.6 mmol/L (21-28); ARTERIAL BLOOD GAS HEMOGLOBIN 11.5 g/dL (11.7-17.4); ARTERIAL BLOOD GAS O2 CAPACITY 15.9 mL/dl (16-24); ARTERIAL BLOOD GAS O2 CONTENT 15.9 ML/dl (15-23); ARTERIAL BLOOD GAS O2 SAT 100.2 % (95-98); ARTERIAL BLOOD GAS PCO2 48 mm/Hg (35-45); ARTERIAL BLOOD GAS PH 7.24 (7.35-7.45); ARTERIAL BLOOD GAS TCO2 22.1 mmol.L (22-28)
--- NOTE | 2018-11-03 17:04 | CP.PCM.PN ---
Subjective - Date & Time of Evaluation Date of Evaluation: 11/03/18 Time of Evaluation: 12:35 - Subjective Subjective: No fevers, not in distress, abdominal pain is improving, ERCP for today. Objective - Vital Signs/Intake and Output Vital Signs (last 24 hours): Temp Pulse Resp BP Pulse Ox 98.4 F 81 20 92/51 L 95 11/03/18 06:00 11/03/18 06:00 11/03/18 06:00 11/03/18 06:00 11/03/18 06:00 Intake and Output: 11/03/18 11/03/18 06:59 18:59 Intake Total 120 Balance 120 - Medications Medications: Current Medications Aspirin (Aspirin Chewable) 81 mg PO DAILY [facility] Last Admin: 11/03/18 10:26 Dose: Not Given Meropenem (Merrem Iv 1 Gm Premix) 1 gm in 50 mls @ 100 mls/hr IVPB Q8 [facility]; Protocol Stop: 11/10/18 16:01 Last Admin: 11/03/18 05:30 Dose: 100 mls/hr Sodium Chloride (Sodium Chloride 0.9%) 1,000 mls @ 75 mls/hr IV .[id number] [facility] Stop: 11/04/18 11:54 Levothyroxine Sodium (Synthroid) 50 mcg PO DAILY [facility] Last Admin: 11/03/18 10:27 Dose: Not Given Morphine Sulfate (Morphine) 2 mg IVP Q4H PRN PRN Reason: Pain, severe (8-10) Last Admin: 11/03/18 06:39 Dose: 2 mg Ondansetron HCl (Zofran Inj) 4 mg IVP Q6H PRN PRN Reason: Nausea/Vomiting Last Admin: 11/02/18 18:21 Dose: 4 mg - Labs Labs: 11/03/18 06:30 11/03/18 06:30 PT 11.5 SECONDS (9.4-12.5) 11/02/18 11:30 INR 1.02 11/02/18 11:30 APTT 32.4 Seconds (26.9-38.3) 11/02/18 11:30 - Constitutional Appears: Chronically Ill - Head Exam Head Exam: NORMAL INSPECTION - Respiratory Exam Respiratory Exam: Decreased Breath Sounds - Cardiovascular Exam Cardiovascular Exam: +S1, +S2 - GI/Abdominal Exam GI & Abdominal Exam: Soft. absent: Tenderness Assessment and Plan - Assessment and Plan (Free Text) Plan: Assessment Severe sepsis due to ascending cholangitis with gram negative bacilli Coronary Artery Disease HTN COPD Dyslipidemia Hypothyroidism Plan continue Merrem pending identification and sensitivities of the GNB in the blood; follow up repeat blood cx; for ERCP today and will follow up findings will monitor clinically
--- NOTE | 2018-11-03 17:15 | CP.PCM.CON ---
History of Present Illness - History of Present Illness History of Present Illness: MICU CONSULT NOTE HPI Patient is 78yo female with PMhx of COPD, hypothyroidism, chronic GERD, GB removal, presented to the ER with abdominal pain. Pt found to have elevated LFTs with TBili, and CBD dilatation with stone, s/p ERCP. Pt was intubated for the procedure, extubated, and found to be apneic thereafter in PACU, reintubated. H istory gathered from the chart and GI fellow, Dr Rabago. Currently intubated, minimally responsive. PMH: COPD, hypothyroidism, chronic GERD, history of CBD stone s/p ERCP and removal of stone PSH: cholecystectomy (2012) All: PCN FH: noncontributory SH: prior smoker, no alcohol/drug use. Review of Systems - Review of Systems Review of Systems: cannot obtain, intubated Past Patient History - Infectious Disease Hx of Infectious Diseases: None - Tetanus Immunizations Tetanus Immunization: Unknown - Past Social History Smoking Status: Former Smoker - CARDIAC Hx Cardiac Disorders: Yes Hx Hypertension: Yes Hx Pacemaker: No - PULMONARY Hx Respiratory Disorders: Yes Hx Chronic Obstructive Pulmonary Disease (COPD): Yes Hx Emphysema: Yes - NEUROLOGICAL Hx Neurological Disorder: No - HEENT Hx HEENT Problems: No Hx Blind: No Hx Cataracts: No Hx Deafness: No Hx Difficulty Chewing: No Hx Epistaxis: No Hx Glaucoma: No Hx Macular Degeneration: No - RENAL Hx Renal Failure: No - ENDOCRINE/METABOLIC Hx Endocrine Disorders: Yes Hx Diabetes Mellitus Type 1: No Hx Diabetes Mellitus Type 2: No Hx Hypothyroidism: Yes (polyp on thyroid) - HEMATOLOGICAL/ONCOLOGICAL Hx Blood Disorders: No Hx AIDS: No Hx Anemia: No Hx Chemotherapy: No Hx Cirrhosis: No Hx Hepatitis A: No Hx Hepatitis B: No Hx Hepatitis C: No Hx Metastesis: No Hx Shingles: No Hx Unexplained Bleeding: No - INTEGUMENTARY Hx Dermatological Problems: No Hx Basil Cell: No Hx Eczema: No Hx Melanoma: No Hx Psoriasis: No Hx Squamous Cell: No - MUSCULOSKELETAL/RHEUMATOLOGICAL Hx Falls: No Hx Unsteady Gait: Yes (ambulates with cane) - GASTROINTESTINAL Hx Gastrointestinal Disorders: Yes Hx Colostomy: No Hx Crohn's Disease: No Hx Diverticulitis: No Hx Gall Bladder Disease: Yes (cholecystectomy 2012) Hx Gastroesophageal Reflux: No Hx Ileostomy: No Hx Liver Failure: No Hx Pancreatitis: No HX Swallowing Problems: No - GENITOURINARY/GYNECOLOGICAL Hx Genitourinary Disorders: No Hx Hematuria: No Hx Incontinence: No Hx Sexually Transmitted Disorders: No Hx Urinary Tract Infection: No - PSYCHIATRIC Hx Psychophysiologic Disorder: No Hx Emotional Abuse: No Hx Physical Abuse: No Hx Substance Use: No - SURGICAL HISTORY Hx Surgeries: Yes Hx Cholecystectomy: Yes - ANESTHESIA Hx Anesthesia Reactions: No Hx Malignant Hyperthermia: No Meds Allergies/Adverse Reactions: Allergies Allergy/AdvReac Type Severity Reaction Status Date / Time Penicillins Allergy SWELLING Verified 11/02/18 10:29 - Medications Medications: Current Medications Aspirin (Aspirin Chewable) 81 mg PO DAILY [facility] Last Admin: 11/03/18 10:26 Dose: Not Given Sodium Chloride (Sodium Chloride 0.9%) 1,000 mls @ 75 mls/hr IV .[id number] [facility] Stop: 11/04/18 11:54 Meropenem (Merrem Iv 1 Gm Premix) 1 gm in 50 mls @ 100 mls/hr IVPB Q12 [facility]; Protocol Stop: 11/10/18 16:01 Sodium Chloride (Sodium Chloride 0.9%) 1,000 mls @ 999 mls/hr IV .[id number] STA Stop: 11/03/18 17:38 Levothyroxine Sodium (Synthroid) 50 mcg PO DAILY [facility] Last Admin: 11/03/18 10:27 Dose: Not Given Morphine Sulfate (Morphine) 2 mg IVP Q4H PRN PRN Reason: Pain, severe (8-10) Last Admin: 11/03/18 06:39 Dose: 2 mg Ondansetron HCl (Zofran Inj) 4 mg IVP Q6H PRN PRN Reason: Nausea/Vomiting Last Admin: 11/02/18 18:21 Dose: 4 mg Pantoprazole Sodium (Protonix Inj) 40 mg IVP DAILY [facility] Physical Exam - Constitutional Appears: No Acute Distress - Head Exam Head Exam: NORMAL INSPECTION - Eye Exam Eye Exam: Normal appearance - ENT Exam ENT Exam: Mucous Membranes Moist - Respiratory Exam Respiratory Exam: Clear to Auscultation Bilateral, NORMAL BREATHING PATTERN - Cardiovascular Exam Cardiovascular Exam: REGULAR RHYTHM, +S1, +S2 - GI/Abdominal Exam GI & Abdominal Exam: Normal Bowel Sounds, Soft - Extremities Exam Extremities exam: Positive for: normal inspection - Neurological Exam Neurological exam: Altered - Skin Skin Exam: Normal Color, Warm Results - Vital Signs Recent Vital Signs: Last Vital Signs Temp 96.9 F L 11/03/18 15:45 Pulse 100 H 11/03/18 15:45 Resp 16 11/03/18 15:45 BP 112/49 L 11/03/18 15:45 Pulse Ox 99 11/03/18 15:45 - Labs Result Diagrams: 11/03/18 06:30 11/03/18 06:30 Labs: Laboratory Results - last 24 hr 11/02/18 11/02/18 11/03/18 11:30 11:30 06:30 WBC 37.9 H* D RBC 3.43 L Hgb 11.1 L D Hct 32.4 L MCV 94.5 MCH 32.4 MCHC 34.3 RDW 14.1 Plt Count 138 MPV 11.4 H pCO2 pO2 HCO3 ABG pH ABG Total CO2 ABG O2 Saturation ABG O2 Content ABG Base Excess ABG Hemoglobin ABG Carboxyhemoglobin POC ABG HHb (Measured) ABG Methemoglobin ABG O2 Capacity Hgb O2 Saturation FiO2 Sodium Potassium Chloride Carbon Dioxide Anion Gap BUN Creatinine Est GFR ( Amer) Est GFR (Non-Af Amer) Random Glucose Calcium Phosphorus Magnesium Total Bilirubin AST ALT Alkaline Phosphatase Total Protein Albumin Globulin Albumin/Globulin Ratio Alpha Fetoprotein 4.9 Hepatitis A IgM Ab Negative Hep Bs Antigen Negative Hep B Core IgM Ab Negative Hepatitis C Antibody Negative 11/03/18 11/03/18 06:30 16:39 WBC RBC Hgb Hct MCV MCH MCHC RDW Plt Count MPV pCO2 48 H pO2 159.0 H HCO3 20.6 L ABG pH 7.24 L ABG Total CO2 22.1 ABG O2 Saturation 100.2 H ABG O2 Content 15.9 ABG Base Excess -6.8 L ABG Hemoglobin 11.5 L ABG Carboxyhemoglobin 2.2 H POC ABG HHb (Measured) -0.2 L ABG Methemoglobin 1.4 ABG O2 Capacity 15.9 L Hgb O2 Saturation 96.6 FiO2 50.0 Sodium 135 Potassium 4.1 Chloride 103 Carbon Dioxide 21 Anion Gap 16 BUN 40 H Creatinine 2.0 H Est GFR ( Amer) 29 Est GFR (Non-Af Amer) 24 Random Glucose 146 H Calcium 8.8 Phosphorus 3.4 Magnesium 1.6 L Total Bilirubin 5.5 H AST 181 H D ALT 282 H Alkaline Phosphatase 298 H D Total Protein 6.8 Albumin 3.4 Globulin 3.4 Albumin/Globulin Ratio 1.0 L Alpha Fetoprotein Hepatitis A IgM Ab Hep Bs Antigen Hep B Core IgM Ab Hepatitis C Antibody - Imaging and Cardiology Chest x-ray Status: Image reviewed by me Assessment & Plan - Assessment and Plan (Free Text) Assessment: 78yo female with resp failure s/p ERCP under general anesthesia CBD stone/dilatation s/p ERCP Gram Neg Bacteremia Severe Sepsis AMS Resp failure COPD Hypothyroidism Recommend: - cont with vent support, low tidal vol ventilation, decrease TV to 450, daily CXR, ABG, CPAP trial, Duonebs PRN - Merrem for gram neg coverage as per ID - follow up cultures, Procal - IVF - NPO - hold BP meds - follow up GI - Surgical eval - Pulmicort BID - Synthroid - check TSH - check HgbA1C - GI ppx - DVT ppx - Monitor in MICU Critical care time 35 minutes
--- NOTE | 2018-11-03 18:52 | RAD ---
Date of service: 11/03/2018 HISTORY: r/o pneumo COMPARISON: 11/02/2018 FINDINGS: Endotracheal tube terminates in the mid trachea. LUNGS: The lungs are well inflated and clear. PLEURA: No pleural effusions or pneumothorax. CARDIOVASCULAR: The heart is normal in size. There are aortic atherosclerotic calcifications present. OSSEOUS STRUCTURES: Within normal limits for the patient's age. Severe degenerative osteoarthrosis in the right glenohumeral joint VISUALIZED UPPER ABDOMEN: Normal. OTHER FINDINGS: None. IMPRESSION: No acute findings. Endotracheal tube terminates in the mid trachea
--- NOTE | 2018-11-03 22:44 | HP ---
DATE OF EXAM: 11/03/2018 The patient was seen and examined by me. I have reviewed the note of the medical educator and I do agree with this. I was personally involved in the assessment and plan of care. HISTORY OF PRESENT ILLNESS: In brief, this is a 78-year-old female who had come to the hospital complaining of abdominal pain. She said the pain was radiating to her back. She said it was mild. She said that the vomiting is what caused her to come into the hospital for further evaluation. She has a difficult time in quantifying the pain. She described it at about 3-4/10. The patient has a history of a cholecystectomy in 2012. She denies any fevers. She says she has been fairly well since then. She says the pain radiates to her back from her epigastric area. Nothing makes the pain worse or better. When she was in the emergency room there were concerns that she may have an aneurysm or dissection so a CT angio was done, it did not show any signs of an aneurysm. There was a thick common bile duct that was dilated at 1.4 x 2.1 cm with an obstruction. I had spoken to Dr. Meek yesterday afternoon so that the patient can be seen as soon as possible. The patient was septic from the ER with a white count that was elevated to 23.9. The patient had a ultrasound that showed a fatty liver and that she was status post cholecystectomy. The common bile duct was measuring about 1.7 mm. The patient had an EKG that shows sinus rhythm with a first-degree AV block. There was no signs of ischemia. The patient was taken to the endoscopy suite today and had ERCP by Dr. Meke. I did speak with Dr. Meek regarding the case. The patient has acute kidney injury with a creatinine that has increased to 2. The patient's LFTs remained elevated. My concern is that the patient may become bacteremic given that she has cholangitis and most likely pus that is causing some blockage. The patient will be transferred to the ICU. We will repeat the patient's blood work. I have discontinued the patient's blood pressure medications. She has been placed on normal saline to help with continuing resuscitation. The patient was given ketorolac and this may have worsened her kidney function. She is currently being followed by infectious disease as well. She is on aspirin daily. She does not have a history of coronary artery disease. I will discontinue her aspirin. I believe this may be for primary prophylaxis. She is going to be on Protonix daily. She is on morphine for pain. She is going to continue the Synthroid for her hypothyroidism. We will continue to follow this critically ill patient. Her prognosis is guarded given her severe sepsis. Alen Webb MD
[2018-11-04 05:33] LABS: ARTERIAL BLOOD GAS HCO3 18.1 mmol/L (21-28); ARTERIAL BLOOD GAS HEMOGLOBIN 10.3 g/dL (11.7-17.4); ARTERIAL BLOOD GAS O2 CAPACITY 14.5 mL/dl (16-24); ARTERIAL BLOOD GAS O2 CONTENT 14.5 ML/dl (15-23); ARTERIAL BLOOD GAS O2 SAT 100.1 % (95-98); ARTERIAL BLOOD GAS PCO2 32 mm/Hg (35-45); ARTERIAL BLOOD GAS PH 7.36 (7.35-7.45); ARTERIAL BLOOD GAS TCO2 19.1 mmol.L (22-28)
[2018-11-04 07:21] LABS: HEMOGLOBIN 11.8 g/dL (12.0-16.0); MEAN CELL VOLUME 96.7 fl (80.0-105.0); MEAN CORPUSCULAR HEMOGLOBIN 32.7 pg (25.0-35.0); MEAN CORPUSCULAR HGB CONC 33.8 g/dl (31.0-37.0); MEAN PLATELET VOLUME 11.9 fl (7.0-11.0); RBC 3.61 10^6/uL (3.5-6.1); RED CELL DISTRIBUTION WIDTH 14.7 % (11.5-14.5)
[2018-11-04 07:37] LABS: WHITE BLOOD COUNT 28.9 10^3/uL (4.5-11.0)
[2018-11-04 07:56] LABS: ALB/GLOB RATIO 0.9 (1.1-1.8); ALBUMIN 3.2 g/dL (3.0-4.8); CALCIUM 8.6 mg/dL (8.4-10.5)
[2018-11-04] MEDS: Meropenem IV 1 gm in NS 1 GM/50 ML BAG IVPB SCH ×2 (09:57→21:12)
[2018-11-04] MEDS: Levothyroxine 50 MCG TAB PO SCH (09:58)
--- NOTE | 2018-11-04 10:47 | CP.PCM.PN ---
<Anderson Rabago - Last Filed: 11/04/18 10:52> Subjective - Date & Time of Evaluation Date of Evaluation: 11/04/18 Time of Evaluation: 07:00 - Subjective Subjective: PGY5 GI Follow-up Note Pt seen and examined bedside extubated in the AM, and saturating well with NC Denies any abd pain Alert and oriented x 3 with some episodes of confusion Denies BM ROS: 12 point ROS conducted, neg other than above Objective - Vital Signs/Intake and Output Vital Signs (last 24 hours): Temp Pulse Resp BP Pulse Ox 98.1 F 78 33 H 114/66 100 11/04/18 08:00 11/04/18 10:00 11/04/18 10:00 11/04/18 10:00 11/04/18 10:00 Intake and Output: 11/04/18 11/04/18 06:59 18:59 Intake Total 50 Output Total 300 Balance -250 - Medications Medications: Current Medications Arformoterol Tartrate (Brovana) 15 mcg IH [id number] [facility]IHA Budesonide (Pulmicort Respules) 0.5 mg IH [id number] MALIHA Sodium Chloride (Sodium Chloride 0.9%) 1,000 mls @ 75 mls/hr IV .[id number] [facility] Stop: 11/04/18 11:54 Last Admin: 11/03/18 22:00 Dose: 75 mls/hr Meropenem (Merrem Iv 1 Gm Premix) 1 gm in 50 mls @ 100 mls/hr IVPB Q12 [facility]; Protocol Stop: 11/10/18 16:01 Last Admin: 11/04/18 09:57 Dose: 100 mls/hr Levothyroxine Sodium (Synthroid) 50 mcg PO DAILY [facility] Last Admin: 11/04/18 09:58 Dose: 50 mcg Morphine Sulfate (Morphine) 2 mg IVP Q4H PRN PRN Reason: Pain, severe (8-10) Last Admin: 11/03/18 06:39 Dose: 2 mg Ondansetron HCl (Zofran Inj) 4 mg IVP Q6H PRN PRN Reason: Nausea/Vomiting Last Admin: 11/02/18 18:21 Dose: 4 mg Pantoprazole Sodium (Protonix Inj) 40 mg IVP DAILY [facility] Last Admin: 11/04/18 09:57 Dose: 40 mg - Labs Labs: 11/04/18 05:30 11/04/18 05:30 PT 11.5 SECONDS (9.4-12.5) 11/02/18 11:30 INR 1.02 11/02/18 11:30 APTT 32.4 Seconds (26.9-38.3) 11/02/18 11:30 - Constitutional Appears: Well, No Acute Distress - Head Exam Head Exam: ATRAUMATIC, NORMOCEPHALIC - Eye Exam Eye Exam: Normal appearance - ENT Exam ENT Exam: Mucous Membranes Moist, Normal Exam - Neck Exam Neck Exam: Normal Inspection - Respiratory Exam Respiratory Exam: Clear to Ausculation Bilateral, NORMAL BREATHING PATTERN. ab sent: Rales, Rhonchi, Wheezes, Respiratory Distress - Cardiovascular Exam Cardiovascular Exam: REGULAR RHYTHM, +S1, +S2 - GI/Abdominal Exam GI & Abdominal Exam: Soft, Normal Bowel Sounds. absent: Bruit, Distended, Firm, Guarding, Rigid, Tenderness, Organomegaly, Pulsatile Mass, Rebound - Extremities Exam Extremities Exam: absent: Joint Swelling, Pedal Edema - Neurological Exam Neurological Exam: Alert, Awake, Oriented x3 - Psychiatric Exam Psychiatric exam: Normal Affect, Normal Mood - Skin Additional comments: mild juandice Assessment and Plan - Assessment and Plan (Free Text) Assessment: This patient is a 78yo female with hx of COPD, hypothyroidism, s/p lap samantha who presented with Cholangitis. S/P ERCP POD#1 successful cannulation of CBD and visualization of large stone in duct, placed x1 stent and visualized pus Cholangitis Gram Neg Bacteremia Sepsis AMS Resp failure s/p ERCP, successful extubation in the AM COPD Hypothyroidism Plan: -continue merrem as per ID -awaiting bile aspirate culture -start clears in the AM, advance as tolerated to low fat pureed -clinical course will dictate the possibity for additional Endoscopic procedure for removal of large CBD stone -will continue to monitor <GaviotaHu trinidadl V - Last Filed: 11/05/18 00:09> Objective - Vital Signs/Intake and Output Vital Signs (last 24 hours): Temp Pulse Resp BP Pulse Ox 98 F 68 13 113/52 L 100 11/04/18 22:00 11/04/18 23:20 11/04/18 23:20 11/04/18 22:00 11/04/18 23:20 Intake and Output: 11/04/18 11/05/18 18:59 06:59 Intake Total 200 Output Total 260 Balance -60 - Medications Medications: Current Medications Arformoterol Tartrate (Brovana) 15 mcg IH [id number] [facility] Last Admin: 11/04/18 20:40 Dose: 15 mcg Budesonide (Pulmicort Respules) 0.5 mg IH [id number] [facility] Last Admin: 11/04/18 20:41 Dose: 0.5 mg Meropenem (Merrem Iv 1 Gm Premix) 1 gm in 50 mls @ 100 mls/hr IVPB Q12 [facility]; Protocol Stop: 11/10/18 16:01 Last Admin: 11/04/18 21:12 Dose: 100 mls/hr Lactated Ringer's (Lactated Ringer's) 1,000 mls @ 75 mls/hr IV .[id number] [facility] Last Admin: 11/04/18 19:40 Dose: 75 mls/hr Levothyroxine Sodium (Synthroid) 50 mcg PO DAILY [facility] Last Admin: 11/04/18 09:58 Dose: 50 mcg Morphine Sulfate (Morphine) 2 mg IVP Q4H PRN PRN Reason: Pain, severe (8-10) Last Admin: 11/03/18 06:39 Dose: 2 mg Ondansetron HCl (Zofran Inj) 4 mg IVP Q6H PRN PRN Reason: Nausea/Vomiting Last Admin: 11/02/18 18:21 Dose: 4 mg Pantoprazole Sodium (Protonix Inj) 40 mg IVP DAILY [facility] Last Admin: 11/04/18 09:57 Dose: 40 mg - Labs Labs: 11/04/18 05:30 11/04/18 05:30 PT 11.5 SECONDS (9.4-12.5) 11/02/18 11:30 INR 1.02 11/02/18 11:30 APTT 32.4 Seconds (26.9-38.3) 11/02/18 11:30 Attending/Attestation - Attestation I have personally seen and examined this patient.: Yes I have fully participated in the care of the patient.: Yes I have reviewed all pertinent clinical information, including history, physical exam and plan: Yes Notes (Text): This is an addendum to GI progress report dictated by the GI Fellow. The patient was seen and examined earlier. Medical records, lab studies, imagings were r eviewed. Last 24 hours events reviewed. Agreed with the above treatment plan as outlined in GI Fellow 's notes with the addition of the following 11/05/18 00:09
--- NOTE | 2018-11-04 12:00 | CP.PCM.PN ---
<Mercy Maldonado - Last Filed: 11/04/18 11:46> Subjective - Date & Time of Evaluation Date of Evaluation: 11/04/18 Time of Evaluation: 07:20 - Subjective Subjective: Mercy Maldonado, PGY2, Medicine Progress Note for Dr Webb: Patient seen and examined at bedside. Post ERCP-extubation, patient had shallow breathing and pulse ox in 80's in PACU, patient was re-intubated and monitored overnight in ICU. No acute events otherwise. At time of my exam this AM, patient was awake, alert, intubated, undergoing pressure support trial. Patient following commands. Denies pain. ROS limited as patient was intubated. Objective - Vital Signs/Intake and Output Vital Signs (last 24 hours): Temp Pulse Resp BP Pulse Ox 98.1 F 78 33 H 114/66 100 11/04/18 08:00 11/04/18 10:00 11/04/18 10:00 11/04/18 10:00 11/04/18 10:00 Intake and Output: 11/04/18 11/04/18 06:59 18:59 Intake Total 50 Output Total 300 Balance -250 - Medications Medications: Current Medications Arformoterol Tartrate (Brovana) 15 mcg IH [id number] [facility] Budesonide (Pulmicort Respules) 0.5 mg IH [id number] [facility] Sodium Chloride (Sodium Chloride 0.9%) 1,000 mls @ 75 mls/hr IV .[id number] [facility] Stop: 11/04/18 11:54 Last Admin: 11/03/18 22:00 Dose: 75 mls/hr Meropenem (Merrem Iv 1 Gm Premix) 1 gm in 50 mls @ 100 mls/hr IVPB Q12 [facility]; Protocol Stop: 11/10/18 16:01 Last Admin: 11/04/18 09:57 Dose: 100 mls/hr Levothyroxine Sodium (Synthroid) 50 mcg PO DAILY [facility] Last Admin: 11/04/18 09:58 Dose: 50 mcg Morphine Sulfate (Morphine) 2 mg IVP Q4H PRN PRN Reason: Pain, severe (8-10) Last Admin: 11/03/18 06:39 Dose: 2 mg Ondansetron HCl (Zofran Inj) 4 mg IVP Q6H PRN PRN Reason: Nausea/Vomiting Last Admin: 11/02/18 18:21 Dose: 4 mg Pantoprazole Sodium (Protonix Inj) 40 mg IVP DAILY [facility] Last Admin: 11/04/18 09:57 Dose: 40 mg - Labs Labs: 11/04/18 05:30 11/04/18 05:30 PT 11.5 SECONDS (9.4-12.5) 11/02/18 11:30 INR 1.02 11/02/18 11:30 APTT 32.4 Seconds (26.9-38.3) 11/02/18 11:30 - Additional Findings Additional findings: - Constitutional Appears: Non-toxic - Head Exam Head Exam: ATRAUMATIC, NORMOCEPHALIC - Eye Exam Eye Exam: EOMI. absent: Nystagmus, Scleral icterus Pupil Exam: PERRL. absent: Miosis, Mydriatic - ENT Exam ENT Exam: Mucous Membranes Moist - Neck Exam Neck exam: Positive for: Full Rom - Respiratory Exam Respiratory Exam: Clear to Auscultation Bilateral. +intubated - Cardiovascular Exam Cardiovascular Exam: RRR, +S1, +S2. absent: Systolic Murmur - GI/Abdominal Exam GI & Abdominal Exam: Hyperactive Bowel Sounds, Tenderness - Extremities Exam Extremities exam: Positive for: normal inspection. Negative for: pedal edema - Back Exam Back exam: NORMAL INSPECTION - Neurological Exam Neurological exam: Alert, awake, following commands - Psychiatric Exam Psychiatric exam: Normal Affect, Normal Mood - Skin Skin Exam: Dry, Warm. mild jaundice Assessment and Plan - Assessment and Plan (Free Text) Assessment: 1. Respiratory failure post ERCP, extubated 2. Ascending cholangitis 3. Gram negative bacterimia 4. UTI 2.2 pansensitive Klebsiella 5. ABILIO 2/2 hypoperfusion vs sepsis 6. fatty liver 7. Hypothyroidism Patient extubated this AM as per ICU team. patient started on pulmicort and brovana. Will monitor repiratory status. ERCP performed yesterday with Dr Meek, 7 cm biliary stent placed, drained pus material. Visualized large stone, Gi to re-visit repeat ERCP based on patient's clinical course. Liquid diet, will advance to low fat pureed as tolerated per GI. LFTs, t bili improving today. Blood cultures 2/2 grew gram negative yaneli, while urine culture grew pansensitive Klebsiellla pneumoniae. Patient on Merrem as per ID. Patient on morphine prn pain, home synthroid for her hypothyroidism. Patient on zofran for her nausea. Protonix for GI prophylaxis, and scds for dvt ppx. Case discussed with Dr Webb. <Alen Webb S - Last Filed: 11/04/18 19:56> Objective - Vital Signs/Intake and Output Vital Signs (last 24 hours): Temp Pulse Resp BP Pulse Ox 97.5 F L 88 21 113/75 71 L 11/04/18 16:00 11/04/18 17:59 11/04/18 17:50 11/04/18 17:00 11/04/18 17:50 Intake and Output: 11/04/18 11/05/18 18:59 06:59 Intake Total 200 Output Total 260 Balance -60 - Medications Medications: Current Medications Arformoterol Tartrate (Brovana) 15 mcg IH [id number] [facility] Budesonide (Pulmicort Respules) 0.5 mg IH [id number] [facility] Meropenem (Merrem Iv 1 Gm Premix) 1 gm in 50 mls @ 100 mls/hr IVPB Q12 [facility]; Protocol Stop: 11/10/18 16:01 Last Admin: 11/04/18 09:57 Dose: 100 mls/hr Lactated Ringer's (Lactated Ringer's) 1,000 mls @ 75 mls/hr IV .[id number] [facility] Levothyroxine Sodium (Synthroid) 50 mcg PO DAILY [facility] Last Admin: 11/04/18 09:58 Dose: 50 mcg Morphine Sulfate (Morphine) 2 mg IVP Q4H PRN PRN Reason: Pain, severe (8-10) Last Admin: 11/03/18 06:39 Dose: 2 mg Ondansetron HCl (Zofran Inj) 4 mg IVP Q6H PRN PRN Reason: Nausea/Vomiting Last Admin: 11/02/18 18:21 Dose: 4 mg Pantoprazole Sodium (Protonix Inj) 40 mg IVP DAILY [facility] Last Admin: 11/04/18 09:57 Dose: 40 mg - Labs Labs: 11/04/18 05:30 11/04/18 05:30 PT 11.5 SECONDS (9.4-12.5) 11/02/18 11:30 INR 1.02 11/02/18 11:30 APTT 32.4 Seconds (26.9-38.3) 11/02/18 11:30 Assessment and Plan - Assessment and Plan (Free Text) Assessment: Pt seen and examined by me. I have reviewed the note of the medical coding instructor and I agree with it. I have discussed the assessment and plan with the resident. I have reviewed the medications and the last labs.
--- NOTE | 2018-11-04 12:09 | CP.CCUPN ---
<Jenni Alcazar - Last Filed: 11/04/18 12:34> CCU Subjective - Physician Review Subjective (Free Text): 11/04/18 12:06 Jenni Alcazar, PGY-1 ICU Progress Note: Pt was seen and examined this AM at bedside. Pt was initially placed on pressure support and then subsequently extubated after tolerating pressure support well. Pt denies having any SOB, cough, or wheezing after extubation. She also denies having any other acute complaints at this time. CCU Objective - Vital Signs / Intake & Output Vital Signs (Last 4 hours): Vital Signs Pulse Resp BP Pulse Ox 11/04/18 10:00 78 33 H 114/66 100 11/04/18 09:50 87 22 100 11/04/18 09:40 79 36 H 100 11/04/18 09:30 82 22 100 11/04/18 09:20 80 29 H 100 11/04/18 09:10 80 100 11/04/18 09:00 78 26 H 117/77 100 11/04/18 08:50 78 25 H 100 11/04/18 08:40 89 29 H 94 L 11/04/18 08:33 83 32 H 11/04/18 08:32 82 22 11/04/18 08:31 79 24 11/04/18 08:30 77 18 11/04/18 08:29 73 17 11/04/18 08:28 71 17 11/04/18 08:27 78 19 11/04/18 08:26 77 17 11/04/18 08:25 76 18 11/04/18 08:24 75 20 11/04/18 08:23 76 16 11/04/18 08:22 80 15 11/04/18 08:21 81 16 11/04/18 08:20 82 19 11/04/18 08:19 82 20 11/04/18 08:18 86 17 11/04/18 08:17 86 26 H 11/04/18 08:16 84 21 11/04/18 08:15 83 37 H 11/04/18 08:14 85 25 H 11/04/18 08:13 85 23 11/04/18 08:12 77 19 11/04/18 08:11 79 16 11/04/18 08:10 78 16 11/04/18 08:09 82 17 11/04/18 08:08 84 18 11/04/18 08:07 80 11/04/18 08:06 83 26 H Intake and Output (Last 8hrs): Intake & Output 11/03/18 11/04/18 11/04/18 22:59 06:59 14:59 Intake Total 50 Output Total 300 Balance -250 Weight 169 lb Intake: Other 50 Output: Urine 300 Urethral (Garay) 300 Other: # Bowel Movements 0 - Physical Exam Head: Positive for: Atraumatic, Normocephalic Pupils: Positive for: PERRL Extroacular Muscles: Positive for: EOMI Conjunctiva: Positive for: Normal Mouth: Positive for: Moist Mucous Membranes Neck: Positive for: Normal Range of Motion Respiratory/Chest: Positive for: Clear to Auscultation, Good Air Exchange. Negative for: Respiratory Distress, Accessory Muscle Use, Wheezes, Rales, Rhonchi Cardiovascular: Positive for: Regular Rate and Rhythm, Normal S1, S2. Negative for: Murmurs Abdomen: Positive for: Tenderness (epigastric, periumbilical), Normal Bowel Sounds. Negative for: Distention, Peritoneal Signs, Rebound, Guarding Back: Positive for: Normal Inspection. Negative for: CVA Tenderness, Paraspinal Tenderness Upper Extremity: Positive for: Normal Inspection, Normal ROM, NORMAL PULSES, Neurovascularly Intact, Capillary Refill < 2s. Negative for: Cyanosis, Edema, Tenderness, Swelling Lower Extremity: Positive for: Normal Inspection, NORMAL PULSES, Normal ROM, Neurovascularly Intact, Capillary Refill < 2 s. Negative for: Edema, Tenderness, Swelling, Temperature Abnormalties Neurological: Positive for: GCS=15, CN II-XII Intact, Speech Normal, Motor Func Grossly Intact, Normal Sensory Function, Gait Normal Skin: Positive for: Warm, Dry, Normal Color. Negative for: Rashes Psychiatric: Positive for: Alert, Oriented x 3, Normal Insight, Normal Concentration, Normal Affect, Normal Mood - Medications Active Medications: Active Medications Generic Name Dose Route Start Last Admin Trade Name Freq PRN Reason Stop Dose Admin Arformoterol Tartrate 15 mcg 11/04/18 20:00 Brovana IH [id number] MALIHA Budesonide 0.5 mg 11/04/18 20:00 Pulmicort Respules IH [id number] MALIHA Meropenem 1 gm in 50 mls @ 100 mls/hr 11/03/18 22:00 11/04/18 09:57 Merrem Iv 1 Gm Premix IVPB 11/10/18 16:01 100 mls/hr Q12 MALIHA Administration Protocol Levothyroxine Sodium 50 mcg 11/02/18 15:00 11/04/18 09:58 Synthroid PO 50 mcg DAILY MALIHA Administration Morphine Sulfate 2 mg 11/02/18 18:58 11/03/18 06:39 Morphine IVP 2 mg Q4H PRN Administration Pain, severe (8-10) Ondansetron HCl 4 mg 11/02/18 18:12 11/02/18 18:21 Zofran Inj IVP 4 mg Q6H PRN Administration Nausea/Vomiting Pantoprazole Sodium 40 mg 11/03/18 17:00 11/04/18 09:57 Protonix Inj IVP 40 mg DAILY MALIHA Administration - Patient Studies Lab Studies: Microbiology Studies 11/02/18 13:26 Urine Culture - Final Urine,Clean Catch Klebsiella Pneumoniae Ssp Pneu 11/03/18 16:05 Gram Stain - Final Bile 11/02/18 13:25 Blood Culture - Preliminary Blood Gram Negative Dileep Gram Stain - Final 11/02/18 13:00 Blood Culture - Preliminary Blood Gram Negative Dileep Gram Stain - Final Lab Studies 11/04/18 11/04/18 11/04/18 Range/Units 05:30 05:30 05:30 WBC 28.9 H* D (4.5-11.0) 10^3/uL RBC 3.61 (3.5-6.1) 10^6/uL Hgb 11.8 L (12.0-16.0) g/dL Hct 34.9 L (36.0-48.0) % MCV 96.7 (80.0-105.0) fl MCH 32.7 (25.0-35.0) pg MCHC 33.8 (31.0-37.0) g/dl RDW 14.7 H (11.5-14.5) % Plt Count 120 (120.0-450.0) 10^3/uL MPV 11.9 H (7.0-11.0) fl pCO2 (35-45) mm/Hg pO2 (80-100) mm/Hg HCO3 (21-28) mmol/L ABG pH (7.35-7.45) ABG Total CO2 (22-28) mmol.L ABG O2 Saturation (95-98) % ABG O2 Content (15-23) ML/dl ABG Base Excess (-2.0-3.0) mmol/L ABG Hemoglobin (11.7-17.4) g/dL ABG Carboxyhemoglobin (0.5-1.5) % POC ABG HHb (Measured) (0-5) % ABG Methemoglobin (0.0-3.0) % ABG O2 Capacity (16-24) mL/dl Hgb O2 Saturation (95.0-98.0) % FiO2 % Sodium 137 (132-148) mmol/L Potassium 4.2 (3.6-5.0) mmol/L Chloride 105 (98-107) mmol/L Carbon Dioxide 22 (21-33) mmol/L Anion Gap 14 (10-20) BUN 58 H (7-21) mg/dL Creatinine 2.8 H (0.7-1.2) mg/dl Est GFR ( Amer) 20 Est GFR (Non-Af Amer) 16 Random Glucose 88 (70-110) mg/dL Calcium 8.6 (8.4-10.5) mg/dL Magnesium 2.2 (1.7-2.2) mg/dL Total Bilirubin 2.4 H (0.2-1.3) mg/dL AST 103 H D (14-36) U/L ALT 211 H (7-56) U/L Alkaline Phosphatase 291 H (38-126) U/L Total Protein 6.8 (5.8-8.3) g/dL Albumin 3.2 (3.0-4.8) g/dL Globulin 3.5 gm/dL Albumin/Globulin Ratio 0.9 L (1.1-1.8) Procalcitonin (0.19-0.49) NG/ML Free T4 1.61 (0.78-2.19) ng/dL 11/04/18 11/03/18 11/03/18 Range/Units 05:10 16:39 09:50 WBC (4.5-11.0) 10^3/uL RBC (3.5-6.1) 10^6/uL Hgb (12.0-16.0) g/dL Hct (36.0-48.0) % MCV (80.0-105.0) fl MCH (25.0-35.0) pg MCHC (31.0-37.0) g/dl RDW (11.5-14.5) % Plt Count (120.0-450.0) 10^3/uL MPV (7.0-11.0) fl pCO2 32 L 48 H (35-45) mm/Hg pO2 202.0 H 159.0 H (80-100) mm/Hg HCO3 18.1 L 20.6 L (21-28) mmol/L ABG pH 7.36 7.24 L (7.35-7.45) ABG Total CO2 19.1 L 22.1 (22-28) mmol.L ABG O2 Saturation 100.1 H 100.2 H (95-98) % ABG O2 Content 14.5 L 15.9 (15-23) ML/dl ABG Base Excess -6.5 L -6.8 L (-2.0-3.0) mmol/L ABG Hemoglobin 10.3 L 11.5 L (11.7-17.4) g/dL ABG Carboxyhemoglobin 1.9 H 2.2 H (0.5-1.5) % POC ABG HHb (Measured) -0.1 L -0.2 L (0-5) % ABG Methemoglobin 1.6 1.4 (0.0-3.0) % ABG O2 Capacity 14.5 L 15.9 L (16-24) mL/dl Hgb O2 Saturation 96.6 96.6 (95.0-98.0) % FiO2 50.0 50.0 % Sodium (132-148) mmol/L Potassium (3.6-5.0) mmol/L Chloride (98-107) mmol/L Carbon Dioxide (21-33) mmol/L Anion Gap (10-20) BUN (7-21) mg/dL Creatinine (0.7-1.2) mg/dl Est GFR ( Amer) Est GFR (Non-Af Amer) Random Glucose (70-110) mg/dL Calcium (8.4-10.5) mg/dL Magnesium (1.7-2.2) mg/dL Total Bilirubin (0.2-1.3) mg/dL AST (14-36) U/L ALT (7-56) U/L Alkaline Phosphatase (38-126) U/L Total Protein (5.8-8.3) g/dL Albumin (3.0-4.8) g/dL Globulin gm/dL Albumin/Globulin Ratio (1.1-1.8) Procalcitonin 7.96 H (0.19-0.49) NG/ML Free T4 (0.78-2.19) ng/dL Laboratory Results - last 24 hr 11/03/18 11/03/18 11/04/18 09:50 16:39 05:10 WBC RBC Hgb Hct MCV MCH MCHC RDW Plt Count MPV pCO2 48 H 32 L pO2 159.0 H 202.0 H HCO3 20.6 L 18.1 L ABG pH 7.24 L 7.36 ABG Total CO2 22.1 19.1 L ABG O2 Saturation 100.2 H 100.1 H ABG O2 Content 15.9 14.5 L ABG Base Excess -6.8 L -6.5 L ABG Hemoglobin 11.5 L 10.3 L ABG Carboxyhemoglobin 2.2 H 1.9 H POC ABG HHb (Measured) -0.2 L -0.1 L ABG Methemoglobin 1.4 1.6 ABG O2 Capacity 15.9 L 14.5 L Hgb O2 Saturation 96.6 96.6 FiO2 50.0 50.0 Sodium Potassium Chloride Carbon Dioxide Anion Gap BUN Creatinine Est GFR ( Amer) Est GFR (Non-Af Amer) Random Glucose Calcium Magnesium Total Bilirubin AST ALT Alkaline Phosphatase Total Protein Albumin Globulin Albumin/Globulin Ratio Procalcitonin 7.96 H Free T4 11/04/18 11/04/18 11/04/18 05:30 05:30 05:30 WBC 28.9 H* D RBC 3.61 Hgb 11.8 L Hct 34.9 L MCV 96.7 MCH 32.7 MCHC 33.8 RDW 14.7 H Plt Count 120 MPV 11.9 H pCO2 pO2 HCO3 ABG pH ABG Total CO2 ABG O2 Saturation ABG O2 Content ABG Base Excess ABG Hemoglobin ABG Carboxyhemoglobin POC ABG HHb (Measured) ABG Methemoglobin ABG O2 Capacity Hgb O2 Saturation FiO2 Sodium 137 Potassium 4.2 Chloride 105 Carbon Dioxide 22 Anion Gap 14 BUN 58 H Creatinine 2.8 H Est GFR ( Amer) 20 Est GFR (Non-Af Amer) 16 Random Glucose 88 Calcium 8.6 Magnesium 2.2 Total Bilirubin 2.4 H AST 103 H D ALT 211 H Alkaline Phosphatase 291 H Total Protein 6.8 Albumin 3.2 Globulin 3.5 Albumin/Globulin Ratio 0.9 L Procalcitonin Free T4 1.61 Radiology Impressions: Radiology Impressions Chest X-Ray 11/03/18 16:33 IMPRESSION: No acute findings. Endotracheal tube terminates in the mid trachea Fingerstick Blood Sugar Results: 113 Critical Care Progress Note - Nutrition Nutrition: Nutrition Category Date Time Status Liquid Diet [DIET] Diets 11/02/18 Dinner Ordered Assessment/Plan - Assessment and Plan (Free Text) Assessment: Pt is a 78 yo F with pmhx of COPD, hypothyroidism, GERD, who presented to the ED for abd pain. Pt went for ERCP yesterday in OR and subsequently had episodes of apnea upon trial of extubation. Pt is also noted to be septic 2/2 likely UTI vs intra-abdominal path leading to gram (-) bacteremia. Plan: Neuro: - AOx3 - Optimize circadian rhythm Pulm: Acute hypoxic respiratory failure 2/2 apnea s/p ERSP: - Pt has been weaned off of vent - Pt is now saturating @ 100 on 3L NC - ABG prior to extubation. pH = 7.36, 02= 202, CO2 = 32 - CXR: Shows NAD per my read Hx of COPD: - Cont pulmicort, brovana Cardio: - EKG: sinus @84 with 1degree block - Ensure MAP >65 GI: CBD dilation w/stone s/p ERCP: - F/u ERCP - Protonix - F/u GI recs ID: Sepsis 2/2 UTI vs intra-abdominal path s/p ERCP - Cont Merrem per ID - Will cont to follo wblood cs - f/u repeat blood cultures per ID Endo: Hypothyroidism: - Cont synthroid Dispo: Pts VSS, and is spontaneously protecting her airway. Pt is stable for transfer to [facility] Pt was seen and discussed with Dr. Jacquelyn Alcazar, PGY-1 <Jefferson Valladares - Last Filed: 11/04/18 17:48> CCU Objective - Vital Signs / Intake & Output Vital Signs (Last 4 hours): Vital Signs Temp Pulse Resp BP Pulse Ox 11/04/18 16:09 85 29 H 11/04/18 16:04 94 H 22 11/04/18 16:03 95 H 24 11/04/18 16:00 97.5 F L 95 H 86/29 L 11/04/18 15:59 96 H 100 11/04/18 15:50 81 18 100 11/04/18 15:40 84 20 100 11/04/18 15:30 82 19 100 11/04/18 15:20 79 16 100 11/04/18 15:10 83 24 100 11/04/18 15:00 83 30 H 116/57 L 100 11/04/18 14:50 87 21 100 11/04/18 14:40 83 17 100 11/04/18 14:30 86 20 100 11/04/18 14:20 79 19 100 11/04/18 14:10 79 17 100 11/04/18 14:00 83 19 119/58 L 100 11/04/18 13:50 83 19 100 Intake and Output (Last 8hrs): Intake & Output 11/04/18 11/04/18 11/04/18 06:59 14:59 22:59 Intake Total 50 200 Output Total 300 Balance -250 200 Weight 169 lb Intake: IV 50 Left Hand 50 Oral 150 Other 50 Output: Urine 300 Urethral (Garay) 300 Other: # Bowel Movements 0 - Medications Active Medications: Active Medications Generic Name Dose Route Start Last Admin Trade Name Freq PRN Reason Stop Dose Admin Arformoterol Tartrate 15 mcg 11/04/18 20:00 Brovana IH [id number] MALIHA Budesonide 0.5 mg 11/04/18 20:00 Pulmicort Respules IH [id number] MALIHA Meropenem 1 gm in 50 mls @ 100 mls/hr 11/03/18 22:00 11/04/18 09:57 Merrem Iv 1 Gm Premix IVPB 11/10/18 16:01 100 mls/hr Q12 MALIHA Administration Protocol Levothyroxine Sodium 50 mcg 11/02/18 15:00 11/04/18 09:58 Synthroid PO 50 mcg DAILY MALIHA Administration Morphine Sulfate 2 mg 11/02/18 18:58 11/03/18 06:39 Morphine IVP 2 mg Q4H PRN Administration Pain, severe (8-10) Ondansetron HCl 4 mg 11/02/18 18:12 11/02/18 18:21 Zofran Inj IVP 4 mg Q6H PRN Administration Nausea/Vomiting Pantoprazole Sodium 40 mg 11/03/18 17:00 11/04/18 09:57 Protonix Inj IVP 40 mg DAILY MALIHA Administration - Patient Studies Lab Studies: Microbiology Studies 11/03/18 13:25 Blood Culture - Preliminary Blood NO GROWTH AFTER 24 HOURS 11/03/18 13:00 Blood Culture - Preliminary Blood NO GROWTH AFTER 24 HOURS 11/02/18 13:26 Urine Culture - Final Urine,Clean Catch Klebsiella Pneumoniae Ssp Pneu 11/03/18 16:05 Gram Stain - Final Bile Lab Studies 11/04/18 11/04/18 11/04/18 Range/Units 05:30 05:30 05:30 WBC 28.9 H* D (4.5-11.0) 10^3/uL RBC 3.61 (3.5-6.1) 10^6/uL Hgb 11.8 L (12.0-16.0) g/dL Hct 34.9 L (36.0-48.0) % MCV 96.7 (80.0-105.0) fl MCH 32.7 (25.0-35.0) pg MCHC 33.8 (31.0-37.0) g/dl RDW 14.7 H (11.5-14.5) % Plt Count 120 (120.0-450.0) 10^3/uL MPV 11.9 H (7.0-11.0) fl pCO2 (35-45) mm/Hg pO2 (80-100) mm/Hg HCO3 (21-28) mmol/L ABG pH (7.35-7.45) ABG Total CO2 (22-28) mmol.L ABG O2 Saturation (95-98) % ABG O2 Content (15-23) ML/dl ABG Base Excess (-2.0-3.0) mmol/L ABG Hemoglobin (11.7-17.4) g/dL ABG Carboxyhemoglobin (0.5-1.5) % POC ABG HHb (Measured) (0-5) % ABG Methemoglobin (0.0-3.0) % ABG O2 Capacity (16-24) mL/dl Hgb O2 Saturation (95.0-98.0) % FiO2 % Sodium 137 (132-148) mmol/L Potassium 4.2 (3.6-5.0) mmol/L Chloride 105 (98-107) mmol/L Carbon Dioxide 22 (21-33) mmol/L Anion Gap 14 (10-20) BUN 58 H (7-21) mg/dL Creatinine 2.8 H (0.7-1.2) mg/dl Est GFR ( Amer) 20 Est GFR (Non-Af Amer) 16 Random Glucose 88 (70-110) mg/dL Calcium 8.6 (8.4-10.5) mg/dL Magnesium 2.2 (1.7-2.2) mg/dL Total Bilirubin 2.4 H (0.2-1.3) mg/dL AST 103 H D (14-36) U/L ALT 211 H (7-56) U/L Alkaline Phosphatase 291 H (38-126) U/L Total Protein 6.8 (5.8-8.3) g/dL Albumin 3.2 (3.0-4.8) g/dL Globulin 3.5 gm/dL Albumin/Globulin Ratio 0.9 L (1.1-1.8) Procalcitonin (0.19-0.49) NG/ML Free T4 1.61 (0.78-2.19) ng/dL 11/04/18 11/03/18 Range/Units 05:10 09:50 WBC (4.5-11.0) 10^3/uL RBC (3.5-6.1) 10^6/uL Hgb (12.0-16.0) g/dL Hct (36.0-48.0) % MCV (80.0-105.0) fl MCH (25.0-35.0) pg MCHC (31.0-37.0) g/dl RDW (11.5-14.5) % Plt Count (120.0-450.0) 10^3/uL MPV (7.0-11.0) fl pCO2 32 L (35-45) mm/Hg pO2 202.0 H (80-100) mm/Hg HCO3 18.1 L (21-28) mmol/L ABG pH 7.36 (7.35-7.45) ABG Total CO2 19.1 L (22-28) mmol.L ABG O2 Saturation 100.1 H (95-98) % ABG O2 Content 14.5 L (15-23) ML/dl ABG Base Excess -6.5 L (-2.0-3.0) mmol/L ABG Hemoglobin 10.3 L (11.7-17.4) g/dL ABG Carboxyhemoglobin 1.9 H (0.5-1.5) % POC ABG HHb (Measured) -0.1 L (0-5) % ABG Methemoglobin 1.6 (0.0-3.0) % ABG O2 Capacity 14.5 L (16-24) mL/dl Hgb O2 Saturation 96.6 (95.0-98.0) % FiO2 50.0 % Sodium (132-148) mmol/L Potassium (3.6-5.0) mmol/L Chloride (98-107) mmol/L Carbon Dioxide (21-33) mmol/L Anion Gap (10-20) BUN (7-21) mg/dL Creatinine (0.7-1.2) mg/dl Est GFR ( Amer) Est GFR (Non-Af Amer) Random Glucose (70-110) mg/dL Calcium (8.4-10.5) mg/dL Magnesium (1.7-2.2) mg/dL Total Bilirubin (0.2-1.3) mg/dL AST (14-36) U/L ALT (7-56) U/L Alkaline Phosphatase (38-126) U/L Total Protein (5.8-8.3) g/dL Albumin (3.0-4.8) g/dL Globulin gm/dL Albumin/Globulin Ratio (1.1-1.8) Procalcitonin 7.96 H (0.19-0.49) NG/ML Free T4 (0.78-2.19) ng/dL Laboratory Results - last 24 hr 11/03/18 11/04/18 11/04/18 09:50 05:10 05:30 WBC 28.9 H* D RBC 3.61 Hgb 11.8 L Hct 34.9 L MCV 96.7 MCH 32.7 MCHC 33.8 RDW 14.7 H Plt Count 120 MPV 11.9 H pCO2 32 L pO2 202.0 H HCO3 18.1 L ABG pH 7.36 ABG Total CO2 19.1 L ABG O2 Saturation 100.1 H ABG O2 Content 14.5 L ABG Base Excess -6.5 L ABG Hemoglobin 10.3 L ABG Carboxyhemoglobin 1.9 H POC ABG HHb (Measured) -0.1 L ABG Methemoglobin 1.6 ABG O2 Capacity 14.5 L Hgb O2 Saturation 96.6 FiO2 50.0 Sodium Potassium Chloride Carbon Dioxide Anion Gap BUN Creatinine Est GFR ( Amer) Est GFR (Non-Af Amer) Random Glucose Calcium Magnesium Total Bilirubin AST ALT Alkaline Phosphatase Total Protein Albumin Globulin Albumin/Globulin Ratio Procalcitonin 7.96 H Free T4 11/04/18 11/04/18 05:30 05:30 WBC RBC Hgb Hct MCV MCH MCHC RDW Plt Count MPV pCO2 pO2 HCO3 ABG pH ABG Total CO2 ABG O2 Saturation ABG O2 Content ABG Base Excess ABG Hemoglobin ABG Carboxyhemoglobin POC ABG HHb (Measured) ABG Methemoglobin ABG O2 Capacity Hgb O2 Saturation FiO2 Sodium 137 Potassium 4.2 Chloride 105 Carbon Dioxide 22 Anion Gap 14 BUN 58 H Creatinine 2.8 H Est GFR ( Amer) 20 Est GFR (Non-Af Amer) 16 Random Glucose 88 Calcium 8.6 Magnesium 2.2 Total Bilirubin 2.4 H AST 103 H D ALT 211 H Alkaline Phosphatase 291 H Total Protein 6.8 Albumin 3.2 Globulin 3.5 Albumin/Globulin Ratio 0.9 L Procalcitonin Free T4 1.61 Radiology Impressions: Radiology Impressions Chest X-Ray 11/03/18 16:33 IMPRESSION: No acute findings. Endotracheal tube terminates in the mid trachea Chest X-Ray 11/04/18 05:00 IMPRESSION: No significant interval change compared to the prior examination(s). Critical Care Progress Note - Nutrition Nutrition: Nutrition Category Date Time Status Liquid Diet [DIET] Diets 11/02/18 Dinner Ordered Attending/Attestation - Attestation I have personally seen and examined this patient.: Yes I have fully participated in the care of the patient.: Yes I have reviewed all pertinent clinical information: Yes Notes (Text): 11/04/18 17:46 78 yo female with severe sepsis due to GN bacteremia in the settign of Kl ebsiella UTI and choledocholithiasis, s/p ERCP in OR, complicated by postop respiratory failure, requiring reintubation. Patient toelrated PST well and successfully extubated today. cont abx, conservatvie fluid and 02 management. pt is hemodynamically and respriatory stable. ok to downgrade to tele ccm time 40 min
--- NOTE | 2018-11-04 13:26 | CP.PCM.PN ---
Subjective - Date & Time of Evaluation Date of Evaluation: 11/04/18 Time of Evaluation: 09:15 - Subjective Subjective: Patient underwent ERCP yesterday, currently in the ICU comfortable in bed, still with some abdominal pain but much better, no fevers this morning, no nausea. Objective - Vital Signs/Intake and Output Vital Signs (last 24 hours): Temp Pulse Resp BP Pulse Ox 96.9 F L 100 H 16 112/49 L 99 11/03/18 15:45 11/03/18 15:45 11/03/18 15:45 11/03/18 15:45 11/03/18 15:45 Intake and Output: 11/03/18 11/03/18 06:59 18:59 Intake Total 120 Balance 120 - Medications Medications: Current Medications Aspirin (Aspirin Chewable) 81 mg PO DAILY [facility] Last Admin: 11/03/18 10:26 Dose: Not Given Sodium Chloride (Sodium Chloride 0.9%) 1,000 mls @ 75 mls/hr IV .[id number] MALIHA Stop: 11/04/18 11:54 Meropenem (Merrem Iv 1 Gm Premix) 1 gm in 50 mls @ 100 mls/hr IVPB Q12 MALIHA; Protocol Stop: 11/10/18 16:01 Sodium Chloride (Sodium Chloride 0.9%) 1,000 mls @ 999 mls/hr IV .[id number] STA Stop: 11/03/18 17:38 Levothyroxine Sodium (Synthroid) 50 mcg PO DAILY [facility] Last Admin: 11/03/18 10:27 Dose: Not Given Morphine Sulfate (Morphine) 2 mg IVP Q4H PRN PRN Reason: Pain, severe (8-10) Last Admin: 11/03/18 06:39 Dose: 2 mg Ondansetron HCl (Zofran Inj) 4 mg IVP Q6H PRN PRN Reason: Nausea/Vomiting Last Admin: 11/02/18 18:21 Dose: 4 mg Pantoprazole Sodium (Protonix Inj) 40 mg IVP DAILY [facility] - Labs Labs: 11/03/18 06:30 11/03/18 06:30 PT 11.5 SECONDS (9.4-12.5) 11/02/18 11:30 INR 1.02 11/02/18 11:30 APTT 32.4 Seconds (26.9-38.3) 11/02/18 11:30 - Constitutional Appears: No Acute Distress, Chronically Ill - Head Exam Head Exam: NORMAL INSPECTION - Neck Exam Neck Exam: absent: Meningismus - Respiratory Exam Respiratory Exam: Decreased Breath Sounds - Cardiovascular Exam Cardiovascular Exam: +S1, +S2 - GI/Abdominal Exam GI & Abdominal Exam: Soft, Tenderness (mild, RUQ). absent: Distended, Firm, Guarding, Rigid, Rebound Assessment and Plan - Assessment and Plan (Free Text) Plan: Assessment Severe sepsis due to ascending cholangitis with gram negative bacilli S/P ERCP, stent placement in CBD, pus noted in the CBD Coronary Artery Disease HTN COPD Dyslipidemia Hypothyroidism Plan continue Merrem pending identification and sensitivities of the GNB in the blood; follow up repeat blood cx; follow up bile cx taken during ERCP will continue to monitor clinically
--- NOTE | 2018-11-04 13:53 | RAD ---
Date of service: 11/04/2018 HISTORY: intubated COMPARISON: 2018. FINDINGS: LUNGS: No active pulmonary disease. PLEURA: No significant pleural effusion identified, no pneumothorax apparent. CARDIOVASCULAR: Atherosclerotic calcifications identified primarily aortic arch. Atherosclerotic disease/calcification the wall of the aorta extends into the upper abdomen is visualized. The ascending aorta is also affected. No radiographic findings to suggest acute or significant cardiovascular disease. OSSEOUS STRUCTURES: No significant abnormalities. VISUALIZED UPPER ABDOMEN: Normal. OTHER FINDINGS: Stable position of endotracheal tube. IMPRESSION: No significant interval change compared to the prior examination(s).
--- NOTE | 2018-11-04 17:58 | RAD ---
Date of service: 11/03/2018 PROCEDURE: Fluoroscopy up to 1 hr. ERCP. HISTORY: ? CBD OBST / STENT PLACEMENT COMPARISON: None TECHNIQUE: FINDINGS: Total fluoroscopic time (continuous mode) utilized during the procedure 90.4 seconds. Total exam DLP: 10.43 (mGy). IMPRESSION: ERCP performed, common duct stent placed.
[2018-11-04] MEDS: Lactated Ringer's 1,000 ML IV SCH (19:40)
[2018-11-04] MEDS: Arformoterol 15 mcg/2 ml Inh Sol IH SCH (20:40)
[2018-11-04] MEDS: Budesonide 0.5 mg/2 ml Inhal Susp UD IH SCH (20:41)
--- NOTE | 2018-11-05 00:28 | PN ---
DATE: 11/04/2018 The patient was seen and examined. I did review the notes of the medical resistant, and I do agree with the note. I did participate in the plan of care for this patient. The patient has ascending cholangitis, sepsis and has been on antibiotics. She had gone into respiratory failure after she had ERCP. The patient feels well and most successfully extubated. The patient has UTI secondary to Klebsiella. The patient has hypothyroidism. She will mostly likely need to continue her current course. She is currently improving. I did speak to Dr. Meek regarding the case to discuss the details. The patient is on lactated Ringer's. This will be continued. She is going to have repeat blood work tomorrow. She is currently in the ICU. She remains critically ill. She is on her meropenem for antibiotics. She is on Pulmicort. She is on Zofran as needed for her nausea. I did review the notes of Dr. Jackman. Significant amount of clots in the common bile duct. She has not had any fevers. The patient has acute kidney injury. She is on IV fluids. This acute kidney injury is most likely secondary to ATN. Supportive care will continue. Alen Webb MD
[2018-11-05 06:16] LABS: HEMOGLOBIN 10.7 g/dL (12.0-16.0); MEAN CELL VOLUME 95.2 fl (80.0-105.0); MEAN CORPUSCULAR HGB CONC 33.6 g/dl (31.0-37.0); MEAN PLATELET VOLUME 11.8 fl (7.0-11.0); RBC 3.34 10^6/uL (3.5-6.1); RED CELL DISTRIBUTION WIDTH 14.7 % (11.5-14.5); WHITE BLOOD COUNT 16.6 10^3/uL (4.5-11.0)
[2018-11-05 07:04] LABS: ALB/GLOB RATIO 0.9 (1.1-1.8); ALBUMIN 2.9 g/dL (3.0-4.8); CALCIUM 8.6 mg/dL (8.4-10.5)
[2018-11-05] MEDS: Arformoterol 15 mcg/2 ml Inh Sol IH SCH (07:44)
[2018-11-05] MEDS: Budesonide 0.5 mg/2 ml Inhal Susp UD IH SCH (07:44)
[2018-11-05] MEDS: Meropenem IV 1 gm in NS 1 GM/50 ML BAG IVPB SCH (09:08)
[2018-11-05] MEDS: Lactated Ringer's 1,000 ML IV SCH (09:09)
[2018-11-05] MEDS: Levothyroxine 50 MCG TAB PO SCH (09:09)
--- NOTE | 2018-11-05 12:20 | CP.PCM.PCO ---
Physician Communication Note - Physician Communication Note Physician Communication Note: Per ID, will need total of 10-14days of IV abx.
[2018-11-05 12:33] VITALS: RESP 20
--- NOTE | 2018-11-05 13:40 | CP.PCM.PN ---
Subjective - Date & Time of Evaluation Date of Evaluation: 11/05/18 Time of Evaluation: 10:05 - Subjective Subjective: Patient is feeling better, no fevers, not in distress. Objective - Vital Signs/Intake and Output Vital Signs (last 24 hours): Temp Pulse Resp BP Pulse Ox 98.1 F 85 39 H 108/49 L 100 11/04/18 08:00 11/04/18 12:10 11/04/18 12:10 11/04/18 12:00 11/04/18 12:10 Intake and Output: 11/04/18 11/04/18 06:59 18:59 Intake Total 50 200 Output Total 300 Balance -250 200 - Medications Medications: Current Medications Arformoterol Tartrate (Brovana) 15 mcg IH [id number] MALIHA Budesonide (Pulmicort Respules) 0.5 mg IH [id number] MALIHA Meropenem (Merrem Iv 1 Gm Premix) 1 gm in 50 mls @ 100 mls/hr IVPB Q12 [facility]; Protocol Stop: 11/10/18 16:01 Last Admin: 11/04/18 09:57 Dose: 100 mls/hr Levothyroxine Sodium (Synthroid) 50 mcg PO DAILY [facility] Last Admin: 11/04/18 09:58 Dose: 50 mcg Morphine Sulfate (Morphine) 2 mg IVP Q4H PRN PRN Reason: Pain, severe (8-10) Last Admin: 11/03/18 06:39 Dose: 2 mg Ondansetron HCl (Zofran Inj) 4 mg IVP Q6H PRN PRN Reason: Nausea/Vomiting Last Admin: 11/02/18 18:21 Dose: 4 mg Pantoprazole Sodium (Protonix Inj) 40 mg IVP DAILY [facility] Last Admin: 11/04/18 09:57 Dose: 40 mg - Labs Labs: 11/04/18 05:30 11/04/18 05:30 PT 11.5 SECONDS (9.4-12.5) 11/02/18 11:30 INR 1.02 11/02/18 11:30 APTT 32.4 Seconds (26.9-38.3) 11/02/18 11:30 - Constitutional Appears: Chronically Ill - Head Exam Head Exam: NORMAL INSPECTION - Neck Exam Neck Exam: absent: Meningismus - Respiratory Exam Respiratory Exam: Decreased Breath Sounds - Cardiovascular Exam Cardiovascular Exam: +S1, +S2 - GI/Abdominal Exam GI & Abdominal Exam: Soft. absent: Tenderness Assessment and Plan - Assessment and Plan (Free Text) Plan: Assessment Severe sepsis due to ascending cholangitis with E. coli and Klebsiella in the bile duct, with E. coli bacteremia S/P ERCP, stent placement in CBD, pus noted in the CBD Coronary Artery Disease HTN COPD Dyslipidemia Hypothyroidism Plan we can switch Merrem to Rocephin since the E. coli and Klebsiella are sensitive and should complete total 10-14 days of antibiotics from time ERCP was done; repeat blood cx are negative will continue to monitor clinically
[2018-11-05] MEDS: cefTRIAXone 1 gm 1 GM/100 ML BAG IVPB SCH (14:37)
--- NOTE | 2018-11-05 16:09 | CP.PCM.PN ---
<Anderson Rabago - Last Filed: 11/05/18 16:11> Subjective - Date & Time of Evaluation Date of Evaluation: 11/05/18 Time of Evaluation: 09:00 - Subjective Subjective: PGY5 GI Follow-up Note Pt seen and examined bedside Denies any abd pain, fever, chills or diaphoresis Tolerating diet Denies BM ROS: 12 point ROS conducted, neg other than above Objective - Vital Signs/Intake and Output Vital Signs (last 24 hours): Temp Pulse Resp BP Pulse Ox 98 F 88 20 124/73 98 11/05/18 12:00 11/05/18 12:00 11/05/18 12:00 11/05/18 12:00 11/05/18 06:00 Intake and Output: 11/05/18 11/05/18 06:59 18:59 Intake Total 450 Balance 450 - Medications Medications: Current Medications Arformoterol Tartrate (Brovana) 15 mcg IH [id number] [facility] Last Admin: 11/05/18 07:44 Dose: 15 mcg Budesonide (Pulmicort Respules) 0.5 mg IH [id number] [facility] Last Admin: 11/05/18 07:44 Dose: 0.5 mg Lactated Ringer's (Lactated Ringer's) 1,000 mls @ 75 mls/hr IV .[id number] [facility] Last Admin: 11/05/18 09:09 Dose: 75 mls/hr Ceftriaxone Sodium (Rocephin 1 Gram Ivpb) 1 gm in 100 mls @ 100 mls/hr IVPB DAILY [facility]; Protocol Last Admin: 11/05/18 14:37 Dose: 100 mls/hr Levothyroxine Sodium (Synthroid) 50 mcg PO DAILY [facility] Last Admin: 11/05/18 09:09 Dose: 50 mcg Morphine Sulfate (Morphine) 2 mg IVP Q4H PRN PRN Reason: Pain, severe (8-10) Last Admin: 11/03/18 06:39 Dose: 2 mg Ondansetron HCl (Zofran Inj) 4 mg IVP Q6H PRN PRN Reason: Nausea/Vomiting Last Admin: 11/02/18 18:21 Dose: 4 mg Pantoprazole Sodium (Protonix Ec Tab) 40 mg PO ACB [facility] - Labs Labs: 11/05/18 05:55 11/05/18 05:55 PT 11.5 SECONDS (9.4-12.5) 11/02/18 11:30 INR 1.02 11/02/18 11:30 APTT 32.4 Seconds (26.9-38.3) 11/02/18 11:30 - Constitutional Appears: Well, No Acute Distress - Head Exam Head Exam: ATRAUMATIC, NORMOCEPHALIC - Eye Exam Eye Exam: Normal appearance - ENT Exam ENT Exam: Mucous Membranes Moist, Normal Exam - Neck Exam Neck Exam: Normal Inspection - Respiratory Exam Respiratory Exam: Clear to Ausculation Bilateral, NORMAL BREATHING PATTERN. absent: Rales, Rhonchi, Wheezes, Respiratory Distress - Cardiovascular Exam Cardiovascular Exam: REGULAR RHYTHM, +S1, +S2 - GI/Abdominal Exam GI & Abdominal Exam: Soft, Normal Bowel Sounds. absent: Distended, Firm, Guarding, Rigid, Tenderness, Organomegaly, Pulsatile Mass, Rebound - Extremities Exam Extremities Exam: absent: Joint Swelling, Pedal Edema - Back Exam Back Exam: NORMAL INSPECTION - Neurological Exam Neurological Exam: Alert, Awake, Oriented x3 - Psychiatric Exam Psychiatric exam: Normal Affect, Normal Mood - Skin Skin Exam: Dry, Intact, Normal Color, Warm Assessment and Plan - Assessment and Plan (Free Text) Assessment: This patient is a 78yo female with hx of COPD, hypothyroidism, s/p lap samantha who presented with Cholangitis. S/P ERCP POD#2 successful cannulation of CBD and visualization of large stone in duct, placed x1 stent and visualized pus Cholangitis, s/p ERCP and stent; Aspirate cultures grew E. Coli and Kleb Pn Sepsis 2/2 above, + initial blood cultures of E.coli Choledocholithiasis, large stone remain in CBD s/p stenting COPD Hypothyroidism Plan: -agree with ID, appropriate to deescalate abx to ceftriaxone as both species are sensitive, total of 10-14 days treatment as per ID -Increase Diet to Modified GI as tolerated -will continue to observe clinical course, further procedures will be based on clinical outcome -repeat blood cultures as per ID D/W Dr. Meek <Agustin Meek V - Last Filed: 11/06/18 01:18> Objective - Vital Signs/Intake and Output Vital Signs (last 24 hours): Temp Pulse Resp BP Pulse Ox 97.7 F 84 20 140/79 98 11/05/18 18:00 11/05/18 18:00 11/05/18 18:00 11/05/18 18:00 11/05/18 06:00 Intake and Output: 11/05/18 11/06/18 18:59 06:59 Intake Total 1100 Balance 1100 - Medications Medications: Current Medications Arformoterol Tartrate (Brovana) 15 mcg IH [id number] [facility] Last Admin: 11/05/18 07:44 Dose: 15 mcg Budesonide (Pulmicort Respules) 0.5 mg IH [id number] [facility] Last Admin: 11/05/18 07:44 Dose: 0.5 mg Ceftriaxone Sodium (Rocephin 1 Gram Ivpb) 1 gm in 100 mls @ 100 mls/hr IVPB DAILY [facility]; Protocol Last Admin: 11/05/18 14:37 Dose: 100 mls/hr Levothyroxine Sodium (Synthroid) 50 mcg PO 0600 [facility] Morphine Sulfate (Morphine) 2 mg IVP Q4H PRN PRN Reason: Pain, severe (8-10) Last Admin: 11/03/18 06:39 Dose: 2 mg Ondansetron HCl (Zofran Inj) 4 mg IVP Q6H PRN PRN Reason: Nausea/Vomiting Last Admin: 11/02/18 18:21 Dose: 4 mg Pantoprazole Sodium (Protonix Ec Tab) 40 mg PO 0600 [facility] - Labs Labs: 11/05/18 05:55 11/05/18 05:55 PT 11.5 SECONDS (9.4-12.5) 11/02/18 11:30 INR 1.02 11/02/18 11:30 APTT 32.4 Seconds (26.9-38.3) 11/02/18 11:30 Attending/Attestation - Attestation I have personally seen and examined this patient.: Yes I have fully participated in the care of the patient.: Yes I have reviewed all pertinent clinical information, including history, physical exam and plan: Yes Notes (Text): This is an addendum to GI consult report dictated by the GI Fellow.The patient was seen and examined earlier. Medical records, lab studies, imagings were reviewed. Last 24 hours events reviewed. Agreed with the above treatment plan as outlined in GI Fellow 's notes with the addition of the following LFT shows downward trend Clinically feeling much better Discussed with the patient's daughter was at bedside Slowly advance the diet Patient is advised to wear dentures and eating Timing of rept ERCP will be based on clinical course 11/06/18 00:57
--- NOTE | 2018-11-05 19:27 | PN ---
DATE: 11/05/2018 SUBJECTIVE: The patient has no complaints of any chest pain. No shortness of breath. No headaches. She is comfortable. She has no pain. OBJECTIVE: VITAL SIGNS: Temperature is 98, pulse of 88, blood pressure is 124/73, and respirations 20. GENERAL: The patient is lying in bed, flat, comfortable. HEENT: No oral lesion. Anicteric sclerae. Moist mucosa. NECK: No JVD, adenopathy, or thyromegaly. CARDIOVASCULAR: S1 and S2, regular. No murmurs, rubs, or gallops. LUNGS: Clear to auscultation bilaterally. No wheeze, rales, or rhonchi. ABDOMEN: Bowel sounds are positive, soft, nontender and nondistended. EXTREMITIES: No cyanosis, clubbing or edema. LABORATORY DATA: White count of 16.6, hemoglobin 10.7, and creatinine is 2.5. ASSESSMENT: 1. Sepsis secondary to ascending cholangitis. 2. Respiratory failure, status post extubation. 3. Urinary tract infection secondary to Klebsiella. 4. Hypothyroidism. 5. Fatty liver. 6. Hyperphosphatemia, hyperbilirubinemia, and transaminitis. PLAN: The patient is currently feeling well. The sepsis is improving. The patient had a hemoglobin of 10.7. She has a white count that continues to improve, it is 16.6 this morning. The patient has acute kidney injury that has also started to improve, creatinine is decreasing from 2.8 yesterday to 2.5 today. The patient has elevated phosphorus that is also improving. She has liver functions that are improving. Her second blood cultures have been negative. Initial blood cultures show a sepsis that was secondary to E. coli most likely from the ascending cholangitis. The patient also had a secondary UTI that was from Klebsiella. She is going to continue with Synthroid for hypothyroidism. She is on Rocephin for antibiotics. She is on lactated Ringer's. She is tolerating her diet. I will discontinue her IV fluids at this point. The patient is on morphine for pain as needed. She is on her Brovana. She is being followed by GI and did speak to Dr. Meek regarding the case yesterday. She is going to have repeat blood work this morning. She is on a liquid diet. She will most likely need at least 10 days of antibiotics. She may be able to go to the Transitional Care Unit, I did speak to the nurse practitioner regarding this. I will discontinue the patient's telemetry monitoring. Alen Webb MD
[2018-11-05] MEDS ORDERED: Levothyroxine 50 MCG TAB PO SCH (20:27)
[2018-11-06] MEDS ORDERED: Pantoprazole 40 mg EC Tab PO SCH (06:00)
[2018-11-06 06:35] LABS: HEMOGLOBIN 11.6 g/dL (12.0-16.0); MEAN CELL VOLUME 94.2 fl (80.0-105.0); MEAN CORPUSCULAR HEMOGLOBIN 31.9 pg (25.0-35.0); MEAN CORPUSCULAR HGB CONC 33.8 g/dl (31.0-37.0); MEAN PLATELET VOLUME 12.2 fl (7.0-11.0); RBC 3.64 10^6/uL (3.5-6.1); RED CELL DISTRIBUTION WIDTH 14.4 % (11.5-14.5); WHITE BLOOD COUNT 11.9 10^3/uL (4.5-11.0)
[2018-11-06 07:15] LABS: ALB/GLOB RATIO 0.9 (1.1-1.8); ALBUMIN 3.4 g/dL (3.0-4.8); CALCIUM 8.7 mg/dL (8.4-10.5)
[2018-11-06] MEDS: Budesonide 0.5 mg/2 ml Inhal Susp UD IH SCH (07:33)
[2018-11-06] MEDS: Arformoterol 15 mcg/2 ml Inh Sol IH SCH (07:33)
[2018-11-06] MEDS ORDERED: Budesonide 0.25 mg/2 ml Inhal Susp UD IH PRN ×2 (08:07→08:32)
[2018-11-06] MEDS ORDERED: INCRUSE ELLIPTA INH PRN (08:07)
[2018-11-06] MEDS ORDERED: Arformoterol 15 mcg/2 ml Inh Sol IH PRN ×2 (08:07→08:32)
[2018-11-06 08:25] VITALS: BP 158/77; PULSE 73; TEMP 98.5; O2SAT 99
[2018-11-06] MEDS ORDERED: FORMOTEROL FUMARATE 20 MCG IH SCH (10:00)
[2018-11-06] MEDS: cefTRIAXone 1 gm 1 GM/100 ML BAG IVPB SCH (10:02)
--- NOTE | 2018-11-06 12:06 | CP.PCM.DIS ---
<Mercy Maldonado - Last Filed: 11/06/18 14:10> Provider - Provider Date of Admission: 11/02/18 15:00 Attending physician: Alen Webb MD Consults: 11/02/18 15:01 Consult [Physician Consult] Stat Comment: Consulting Provider: Agustin Meek V Consulting Physician: Agustin Meek V Reason for Consult: elevated bili 11/02/18 15:14 Consult [Physician Consult] Stat Comment: Consulting Provider: Dhaval Pérez Consulting Physician: Dhaval Pérez Reason for Consult: cholangitis 11/02/18 17:19 Social Work Referral Routine Comment: new admition Physician Instructions: Reason For Exam: evaluation 11/02/18 17:47 Case Management Referral Routine Comment: niece lives with downstairs Physician Instructions: Reason For Exam: Reason for Referral: Discharge Planning 11/03/18 16:37 Critical Care Consult Routine Comment: Consulting Provider: Agustin Meek V Consulting Physician: Agustin Meek V Reason for Consult: REINTUBATED IN PACU/POSSIBLE SEPSIS 11/06/18 06:23 TCU [Evaluation for TRCU] Routine Comment: Physician Instructions: Reason For Exam: deconditioned Time Spent in preparation of Discharge (in minutes): 60 Diagnosis - Discharge Diagnosis (1) Cholangitis Status: Acute (2) Elevated LFTs Status: Acute (3) Leukocytosis Status: Acute (4) UTI (urinary tract infection) Status: Acute Hospital Course - Lab Results Lab Results: Micro Results 11/03/18 13:25 Blood Blood Culture - Preliminary NO GROWTH AFTER 48 HOURS 11/03/18 13:00 Blood Blood Culture - Preliminary NO GROWTH AFTER 48 HOURS 11/03/18 20:35 Nose MRSA Culture (Admit) - Final MRSA NOT DETECTED 11/03/18 16:05 Bile Gram Stain - Final 11/03/18 16:05 Bile Body Fluid Culture - Final Escherichia Coli Klebsiella Pneumoniae Ssp Pneu 11/02/18 13:25 Blood Blood Culture - Final Escherichia Coli 11/02/18 13:25 Blood Gram Stain - Final 11/02/18 13:00 Blood Blood Culture - Final Escherichia Coli 11/02/18 13:00 Blood Gram Stain - Final 11/02/18 13:26 Urine,Clean Catch Urine Culture - Final Klebsiella Pneumoniae Ssp Pneu Most Recent Lab Values WBC 11.9 10^3/uL (4.5-11.0) H D 11/06/18 06:00 RBC 3.64 10^6/uL (3.5-6.1) 11/06/18 06:00 Hgb 11.6 g/dL (12.0-16.0) L 11/06/18 06:00 Hct 34.3 % (36.0-48.0) L 11/06/18 06:00 MCV 94.2 fl (80.0-105.0) 11/06/18 06:00 MCH 31.9 pg (25.0-35.0) 11/06/18 06:00 MCHC 33.8 g/dl (31.0-37.0) 11/06/18 06:00 RDW 14.4 % (11.5-14.5) 11/06/18 06:00 Plt Count 155 10^3/uL (120.0-450.0) 11/06/18 06:00 MPV 12.2 fl (7.0-11.0) H 11/06/18 06:00 Neut % (Auto) 90.9 % (50.0-68.0) H 11/02/18 11:30 Lymph % (Auto) 3.0 % (22.0-35.0) L 11/02/18 11:30 Smyth % (Auto) 6.1 % (1.0-6.0) H 11/02/18 11:30 Eos % (Auto) 0.0 % (1.5-5.0) L 11/02/18 11:30 Baso % (Auto) 0.0 % (0.0-3.0) 11/02/18 11:30 Lymph # (Auto) 0.7 (1.2-3.4) L 11/02/18 11:30 Smyth # (Auto) 1.5 (0.1-0.6) H 11/02/18 11:30 Eos # (Auto) 0.0 (0.0-0.7) 11/02/18 11:30 Baso # (Auto) 0.01 K/mm3 (0.0-2.0) 11/02/18 11:30 Absolute Neuts (auto) 21.75 (1.4-6.5) H 11/02/18 11:30 Neutrophils % (Manual) 92 % (50.0-70.0) H 11/02/18 11:30 Band Neutrophils % 2 % (0-2) 11/02/18 11:30 Lymphocytes % (Manual) 5 % (22.0-35.0) L 11/02/18 11:30 Monocytes % (Manual) 1 % (1.0-6.0) 11/02/18 11:30 Platelet Evaluation Normal (NORMAL) 11/02/18 11:30 Anisocytosis (manual) Slight 11/02/18 11:30 PT 11.5 SECONDS (9.4-12.5) 11/02/18 11:30 INR 1.02 11/02/18 11:30 APTT 32.4 Seconds (26.9-38.3) 11/02/18 11:30 pCO2 32 mm/Hg (35-45) L 11/04/18 05:10 pO2 202.0 mm/Hg (80-100) H 11/04/18 05:10 HCO3 18.1 mmol/L (21-28) L 11/04/18 05:10 ABG pH 7.36 (7.35-7.45) 11/04/18 05:10 ABG Total CO2 19.1 mmol.L (22-28) L 11/04/18 05:10 ABG O2 Saturation 100.1 % (95-98) H 11/04/18 05:10 ABG O2 Content 14.5 ML/dl (15-23) L 11/04/18 05:10 ABG Base Excess -6.5 mmol/L (-2.0-3.0) L 11/04/18 05:10 ABG Hemoglobin 10.3 g/dL (11.7-17.4) L 11/04/18 05:10 ABG Carboxyhemoglobin 1.9 % (0.5-1.5) H 11/04/18 05:10 POC ABG HHb (Measured) -0.1 % (0-5) L 11/04/18 05:10 ABG Methemoglobin 1.6 % (0.0-3.0) 11/04/18 05:10 ABG O2 Capacity 14.5 mL/dl (16-24) L 11/04/18 05:10 VBG pH 7.47 (7.32-7.43) H 11/02/18 13:15 VBG pCO2 33.0 (40-60) L 11/02/18 13:15 VBG HCO3 24.0 mmol/l (21-28) 11/02/18 13:15 VBG Total CO2 25.0 mmol.L (22-28) 11/02/18 13:15 VBG O2 Sat (Calc) 92.0 % (40-65) H 11/02/18 13:15 VBG Base Excess 0.9 mmol/L (0.0-2.0) 11/02/18 13:15 VBG Potassium 3.5 mmol/L (3.6-5.2) L 11/02/18 13:15 Hgb O2 Saturation 96.6 % (95.0-98.0) 11/04/18 05:10 Sodium 138.0 mmol/L (132-148) 11/02/18 13:15 Chloride 104.0 mmol/L (98-107) 11/02/18 13:15 Glucose 157 mg/dl (65-105) H 11/02/18 13:15 Lactate 1.3 mmol/L (0.7-2.1) 11/02/18 13:15 FiO2 50.0 % 11/04/18 05:10 Sodium 137 mmol/L (132-148) 11/06/18 06:00 Potassium 4.0 mmol/L (3.6-5.0) 11/06/18 06:00 Chloride 107 mmol/L (98-107) 11/06/18 06:00 Carbon Dioxide 23 mmol/L (21-33) 11/06/18 06:00 Anion Gap 11 (10-20) 11/06/18 06:00 BUN 63 mg/dL (7-21) H 11/06/18 06:00 Creatinine 1.8 mg/dl (0.7-1.2) H 11/06/18 06:00 Est GFR ( Amer) 33 11/06/18 06:00 Est GFR (Non-Af Amer) 27 11/06/18 06:00 POC Glucose (mg/dL) 68 mg/dL (65-110) 11/04/18 23:13 Random Glucose 82 mg/dL (70-110) 11/06/18 06:00 Calcium 8.7 mg/dL (8.4-10.5) 11/06/18 06:00 Phosphorus 4.7 mg/dL (2.5-4.5) H 11/06/18 06:00 Magnesium 2.3 mg/dL (1.7-2.2) H 11/06/18 06:00 Total Bilirubin 1.4 mg/dL (0.2-1.3) H 11/06/18 06:00 Direct Bilirubin 3.0 mg/dL (0.0-0.4) H 11/02/18 11:30 AST 51 U/L (14-36) H 11/06/18 06:00 ALT 113 U/L (7-56) H 11/06/18 06:00 Alkaline Phosphatase 284 U/L (38-126) H 11/06/18 06:00 Ammonia 13 umol/L (9-33) 11/02/18 13:15 Lactate Dehydrogenase 1472 U/L (333-699) H 11/02/18 11:30 Total Creatine Kinase 175 U/L (35-230) 11/02/18 11:30 Troponin I < 0.01 ng/mL D 11/02/18 11:30 NT-Pro-B Natriuret Pep 1140 pg/mL (0-450) H 11/02/18 11:30 Total Protein 7.1 g/dL (5.8-8.3) 11/06/18 06:00 Albumin 3.4 g/dL (3.0-4.8) 11/06/18 06:00 Globulin 3.7 gm/dL 11/06/18 06:00 Albumin/Globulin Ratio 0.9 (1.1-1.8) L 11/06/18 06:00 Lipase 99 U/L (23-300) 11/02/18 11:30 Alpha Fetoprotein 4.9 ng/mL (0.0-7.5) 11/02/18 11:30 Procalcitonin 7.96 NG/ML (0.19-0.49) H 11/03/18 09:50 Free T4 1.61 ng/dL (0.78-2.19) 11/04/18 05:30 TSH 3rd Generation 0.33 mIU/mL (0.46-4.68) L 11/02/18 11:30 Venous Blood Potassium 3.5 mmol/L (3.6-5.2) L 11/02/18 13:15 Urine Color Dark yellow (YELLOW) 11/02/18 13:26 Urine Appearance Slight-cloudy (CLEAR) 11/02/18 13:26 Urine pH 6.0 (4.7-8.0) 11/02/18 13:26 Ur Specific [place] 1.025 (1.005-1.035) 11/02/18 13:26 Urine Protein Trace mg/dL (<30 mg/dL) H 11/02/18 13:26 Urine Glucose (UA) Negative mg/dL (NEGATIVE) 11/02/18 13:26 Urine Ketones Negative mg/dL (NEGATIVE) 11/02/18 13:26 Urine Blood Trace-intact (NEGATIVE) H 11/02/18 13:26 Urine Nitrate Positive (NEGATIVE) H 11/02/18 13:26 Urine Bilirubin Moderate (NEGATIVE) H 11/02/18 13:26 Urine Urobilinogen 4.0 E.U./dL (<1 E.U./dL) H 11/02/18 13:26 Ur Leukocyte Esterase Small Toro/uL (NEGATIVE) H 11/02/18 13:26 Urine RBC 5 - 10 /hpf (0-2) H 11/02/18 13:26 Urine WBC 10 - 15 /hpf (0-6) H 11/02/18 13:26 Ur Epithelial Cells 6 - 8 /hpf (0-5) H 11/02/18 13:26 Amorphous Sediment Few /hpf (NONE) 11/02/18 13:26 Urine Bacteria Many /hpf (NONE) 11/02/18 13:26 Urine Other Uyeast /hpf 11/02/18 13:26 Hepatitis A IgM Ab Negative (NEGATIVE) 11/02/18 11:30 Hep Bs Antigen Negative (NEGATIVE) 11/02/18 11:30 Hep B Core IgM Ab Negative (NEGATIVE) 11/02/18 11:30 Hepatitis C Antibody Negative (NEGATIVE) 11/02/18 11:30 - Hospital Course Hospital Course: This is a 78 year old female with PMH cholecystectomy, CBD stone s/p ERCP, presents to ED for abdominal pain for 1 day. Patient describes the pain as epigastric, radiating to her back and into her chest, described as sharp. Reports one episode of vomiting. Denies fevers, chills, urinary symptoms, shortness of breath, jaundice/yellowing of skin, headache, leg swelling, neck pain, weakness, mental status changes. Imaging showed CBD dilatation, with elevated wbc, elevated LFTs, hyperbilirubinemia, ALP elevation. Patient admitted for cholangitis. Patient underwent ERCP with EUS with GI Dr Meek, found to have purulent material (that was drained) with large stone, 7 cm biliary stent placement. Post ERCP, patient had shallow respirations, requring re-intubation overnight and ICU care. Blood cultures grew E coli and urine culture grew Klebsiella pneumonia. Biliary fluid cultures are growing e coli and klebsiella. ID consulted, placed patient on rocephin as per sensitivities, to be continued for 10-14 days. This AM, patient reports improved abdominal pain, tolerating heart healthy diet. Patient is accepted to TCU for further rehab and management. Patient's son and family explained of patient's condition, agree on TCU management. Case discussed with Dr Webb. Discharge Exam - Additional Findings Additional findings: - Constitutional Appears: Well, No Acute Distress - Head Exam Head Exam: ATRAUMATIC, NORMOCEPHALIC - Eye Exam Eye Exam: Normal appearance - ENT Exam ENT Exam: Mucous Membranes Moist, Normal Exam - Neck Exam Neck Exam: Normal Inspection - Respiratory Exam Respiratory Exam: Clear to Ausculation Bilateral, NORMAL BREATHING PATTERN. absent: Rales, Rhonchi, Wheezes, Respiratory Distress - Cardiovascular Exam Cardiovascular Exam: REGULAR RHYTHM, +S1, +S2 - GI/Abdominal Exam GI & Abdominal Exam: Soft, Normal Bowel Sounds. absent: Distended, Firm, Guarding, Rigid, Tenderness, Organomegaly, Pulsatile Mass, Rebound - Extremities Exam Extremities Exam: absent: Joint Swelling, Pedal Edema - Back Exam Back Exam: NORMAL INSPECTION - Neurological Exam Neurological Exam: Alert, Awake, Oriented x3 - Psychiatric Exam Psychiatric exam: Normal Affect, Normal Mood - Skin Skin Exam: Dry, Intact, Normal Color, Warm Discharge Plan - Discharge Medications Prescriptions: cefTRIAXone 1 gm [Rocephin 1 gram IVPB] 1 gm IVPB DAILY 6 Days bag Loratadine [Claritin] 10 mg PO DAILY 30 Days tab - Follow Up Plan Condition: STABLE Disposition: TRANSF TO SNF Instructions: Gallstones (DC), Urinary Tract Infection in Women (DC), Leukocytosis (GEN) Additional Instructions: - Continue with medications as on 3R. - Continue with rehab at the TCU. <Alen Webb - Last Filed: 11/09/18 10:56> Provider - Provider Date of Admission: 11/02/18 15:00 Attending physician: Alen Webb MD Consults: 11/02/18 15:01 Consult [Physician Consult] Stat Comment: Consulting Provider: Agustin Meek V Consulting Physician: Agustin Meek V Reason for Consult: elevated bili 11/02/18 15:14 Consult [Physician Consult] Stat Comment: Consulting Provider: Dhaval Pérez Consulting Physician: Dhaval Pérez Reason for Consult: cholangitis 11/02/18 17:19 Social Work Referral Routine Comment: new admition Physician Instructions: Reason For Exam: evaluation 11/02/18 17:47 Case Management Referral Routine Comment: niece lives with downstairs Physician Instructions: Reason For Exam: Reason for Referral: Discharge Planning 11/03/18 16:37 Critical Care Consult Routine Comment: Consulting Provider: Agustin Meek V Consulting Physician: Agustin Meek V Reason for Consult: REINTUBATED IN PACU/POSSIBLE SEPSIS 11/06/18 06:23 TCU [Evaluation for TRCU] Routine Comment: Physician Instructions: Reason For Exam: deconditioned Hospital Course - Lab Results Lab Results: Micro Results 11/03/18 13:25 Blood Blood Culture - Final NO GROWTH AFTER 5 DAYS 11/03/18 13:25 Blood Gram Stain - Final TEST NOT PERFORMED 11/03/18 13:00 Blood Blood Culture - Final NO GROWTH AFTER 5 DAYS 11/03/18 13:00 Blood Gram Stain - Final TEST NOT PERFORMED 11/03/18 20:35 Nose MRSA Culture (Admit) - Final MRSA NOT DETECTED 11/03/18 16:05 Bile Gram Stain - Final 11/03/18 16:05 Bile Body Fluid Culture - Final Escherichia Coli Klebsiella Pneumoniae Ssp Pneu 11/02/18 13:25 Blood Blood Culture - Final Escherichia Coli 11/02/18 13:25 Blood Gram Stain - Final 11/02/18 13:00 Blood Blood Culture - Final Escherichia Coli 11/02/18 13:00 Blood Gram Stain - Final 11/02/18 13:26 Urine,Clean Catch Urine Culture - Final Klebsiella Pneumoniae Ssp Pneu Most Recent Lab Values WBC 11.9 10^3/uL (4.5-11.0) H D 11/06/18 06:00 RBC 3.64 10^6/uL (3.5-6.1) 11/06/18 06:00 Hgb 11.6 g/dL (12.0-16.0) L 11/06/18 06:00 Hct 34.3 % (36.0-48.0) L 11/06/18 06:00 MCV 94.2 fl (80.0-105.0) 11/06/18 06:00 MCH 31.9 pg (25.0-35.0) 11/06/18 06:00 MCHC 33.8 g/dl (31.0-37.0) 11/06/18 06:00 RDW 14.4 % (11.5-14.5) 11/06/18 06:00 Plt Count 155 10^3/uL (120.0-450.0) 11/06/18 06:00 MPV 12.2 fl (7.0-11.0) H 11/06/18 06:00 Neut % (Auto) 90.9 % (50.0-68.0) H 11/02/18 11:30 Lymph % (Auto) 3.0 % (22.0-35.0) L 11/02/18 11:30 Smyth % (Auto) 6.1 % (1.0-6.0) H 11/02/18 11:30 Eos % (Auto) 0.0 % (1.5-5.0) L 11/02/18 11:30 Baso % (Auto) 0.0 % (0.0-3.0) 11/02/18 11:30 Lymph # (Auto) 0.7 (1.2-3.4) L 11/02/18 11:30 Smyth # (Auto) 1.5 (0.1-0.6) H 11/02/18 11:30 Eos # (Auto) 0.0 (0.0-0.7) 11/02/18 11:30 Baso # (Auto) 0.01 K/mm3 (0.0-2.0) 11/02/18 11:30 Absolute Neuts (auto) 21.75 (1.4-6.5) H 11/02/18 11:30 Neutrophils % (Manual) 92 % (50.0-70.0) H 11/02/18 11:30 Band Neutrophils % 2 % (0-2) 11/02/18 11:30 Lymphocytes % (Manual) 5 % (22.0-35.0) L 11/02/18 11:30 Monocytes % (Manual) 1 % (1.0-6.0) 11/02/18 11:30 Platelet Evaluation Normal (NORMAL) 11/02/18 11:30 Anisocytosis (manual) Slight 11/02/18 11:30 PT 11.5 SECONDS (9.4-12.5) 11/02/18 11:30 INR 1.02 11/02/18 11:30 APTT 32.4 Seconds (26.9-38.3) 11/02/18 11:30 pCO2 32 mm/Hg (35-45) L 11/04/18 05:10 pO2 202.0 mm/Hg (80-100) H 11/04/18 05:10 HCO3 18.1 mmol/L (21-28) L 11/04/18 05:10 ABG pH 7.36 (7.35-7.45) 11/04/18 05:10 ABG Total CO2 19.1 mmol.L (22-28) L 11/04/18 05:10 ABG O2 Saturation 100.1 % (95-98) H 11/04/18 05:10 ABG O2 Content 14.5 ML/dl (15-23) L 11/04/18 05:10 ABG Base Excess -6.5 mmol/L (-2.0-3.0) L 11/04/18 05:10 ABG Hemoglobin 10.3 g/dL (11.7-17.4) L 11/04/18 05:10 ABG Carboxyhemoglobin 1.9 % (0.5-1.5) H 11/04/18 05:10 POC ABG HHb (Measured) -0.1 % (0-5) L 11/04/18 05:10 ABG Methemoglobin 1.6 % (0.0-3.0) 11/04/18 05:10 ABG O2 Capacity 14.5 mL/dl (16-24) L 11/04/18 05:10 VBG pH 7.47 (7.32-7.43) H 11/02/18 13:15 VBG pCO2 33.0 (40-60) L 11/02/18 13:15 VBG HCO3 24.0 mmol/l (21-28) 11/02/18 13:15 VBG Total CO2 25.0 mmol.L (22-28) 11/02/18 13:15 VBG O2 Sat (Calc) 92.0 % (40-65) H 11/02/18 13:15 VBG Base Excess 0.9 mmol/L (0.0-2.0) 11/02/18 13:15 VBG Potassium 3.5 mmol/L (3.6-5.2) L 11/02/18 13:15 Hgb O2 Saturation 96.6 % (95.0-98.0) 11/04/18 05:10 Sodium 138.0 mmol/L (132-148) 11/02/18 13:15 Chloride 104.0 mmol/L (98-107) 11/02/18 13:15 Glucose 157 mg/dl (65-105) H 11/02/18 13:15 Lactate 1.3 mmol/L (0.7-2.1) 11/02/18 13:15 FiO2 50.0 % 11/04/18 05:10 Sodium 137 mmol/L (132-148) 11/06/18 06:00 Potassium 4.0 mmol/L (3.6-5.0) 11/06/18 06:00 Chloride 107 mmol/L (98-107) 11/06/18 06:00 Carbon Dioxide 23 mmol/L (21-33) 11/06/18 06:00 Anion Gap 11 (10-20) 11/06/18 06:00 BUN 63 mg/dL (7-21) H 11/06/18 06:00 Creatinine 1.8 mg/dl (0.7-1.2) H 11/06/18 06:00 Est GFR ( Amer) 33 11/06/18 06:00 Est GFR (Non-Af Amer) 27 11/06/18 06:00 POC Glucose (mg/dL) 68 mg/dL (65-110) 11/04/18 23:13 Random Glucose 82 mg/dL (70-110) 11/06/18 06:00 Calcium 8.7 mg/dL (8.4-10.5) 11/06/18 06:00 Phosphorus 4.7 mg/dL (2.5-4.5) H 11/06/18 06:00 Magnesium 2.3 mg/dL (1.7-2.2) H 11/06/18 06:00 Total Bilirubin 1.4 mg/dL (0.2-1.3) H 11/06/18 06:00 Direct Bilirubin 3.0 mg/dL (0.0-0.4) H 11/02/18 11:30 AST 51 U/L (14-36) H 11/06/18 06:00 ALT 113 U/L (7-56) H 11/06/18 06:00 Alkaline Phosphatase 284 U/L (38-126) H 11/06/18 06:00 Ammonia 13 umol/L (9-33) 11/02/18 13:15 Lactate Dehydrogenase 1472 U/L (333-699) H 11/02/18 11:30 Total Creatine Kinase 175 U/L (35-230) 11/02/18 11:30 Troponin I < 0.01 ng/mL D 11/02/18 11:30 NT-Pro-B Natriuret Pep 1140 pg/mL (0-450) H 11/02/18 11:30 Total Protein 7.1 g/dL (5.8-8.3) 11/06/18 06:00 Albumin 3.4 g/dL (3.0-4.8) 11/06/18 06:00 Globulin 3.7 gm/dL 11/06/18 06:00 Albumin/Globulin Ratio 0.9 (1.1-1.8) L 11/06/18 06:00 Lipase 99 U/L (23-300) 11/02/18 11:30 Alpha Fetoprotein 4.9 ng/mL (0.0-7.5) 11/02/18 11:30 Procalcitonin 7.96 NG/ML (0.19-0.49) H 11/03/18 09:50 Free T4 1.61 ng/dL (0.78-2.19) 11/04/18 05:30 TSH 3rd Generation 0.33 mIU/mL (0.46-4.68) L 11/02/18 11:30 Venous Blood Potassium 3.5 mmol/L (3.6-5.2) L 11/02/18 13:15 Urine Color Dark yellow (YELLOW) 11/02/18 13:26 Urine Appearance Slight-cloudy (CLEAR) 11/02/18 13:26 Urine pH 6.0 (4.7-8.0) 11/02/18 13:26 Ur Specific [place] 1.025 (1.005-1.035) 11/02/18 13:26 Urine Protein Trace mg/dL (<30 mg/dL) H 11/02/18 13:26 Urine Glucose (UA) Negative mg/dL (NEGATIVE) 11/02/18 13:26 Urine Ketones Negative mg/dL (NEGATIVE) 11/02/18 13:26 Urine Blood Trace-intact (NEGATIVE) H 11/02/18 13:26 Urine Nitrate Positive (NEGATIVE) H 11/02/18 13:26 Urine Bilirubin Moderate (NEGATIVE) H 11/02/18 13:26 Urine Urobilinogen 4.0 E.U./dL (<1 E.U./dL) H 11/02/18 13:26 Ur Leukocyte Esterase Small Toro/uL (NEGATIVE) H 11/02/18 13:26 Urine RBC 5 - 10 /hpf (0-2) H 11/02/18 13:26 Urine WBC 10 - 15 /hpf (0-6) H 11/02/18 13:26 Ur Epithelial Cells 6 - 8 /hpf (0-5) H 11/02/18 13:26 Amorphous Sediment Few /hpf (NONE) 11/02/18 13:26 Urine Bacteria Many /hpf (NONE) 11/02/18 13:26 Urine Other Uyeast /hpf 11/02/18 13:26 Hepatitis A IgM Ab Negative (NEGATIVE) 11/02/18 11:30 Hep Bs Antigen Negative (NEGATIVE) 11/02/18 11:30 Hep B Core IgM Ab Negative (NEGATIVE) 11/02/18 11:30 Hepatitis C Antibody Negative (NEGATIVE) 11/02/18 11:30 - Hospital Course Hospital Course: Pt seen and examined by me. I have reviewed the note of the medical donation professional and I agree with it. I have discussed the assessment and plan with the resident. I have reviewed the medications and the last labs.
--- NOTE | 2018-11-06 13:04 | CP.PCM.PN ---
<Anderson Rabago - Last Filed: 11/06/18 13:06> Subjective - Date & Time of Evaluation Date of Evaluation: 11/06/18 Time of Evaluation: 09:00 - Subjective Subjective: PGY5 GI Follow-up Pt seen and examined bedside Denies any abd pain denies any fever, chills or diaphoresis ROS: 12 point ROS conducted, neg other than above Objective - Vital Signs/Intake and Output Vital Signs (last 24 hours): Temp Pulse Resp BP Pulse Ox 98.5 F 73 20 158/77 H 99 11/06/18 08:25 11/06/18 08:25 11/06/18 08:25 11/06/18 08:25 11/06/18 08:25 - Medications Medications: Current Medications Arformoterol Tartrate (Brovana) 15 mcg IH [id number] [facility], 1928[facility]1983 Last Admin: 11/06/18 07:33 Dose: 15 mcg Budesonide (Pulmicort Respules) 0.5 mg IH [id number] [facility], 1928–1983 Last Admin: 11/06/18 07:33 Dose: 0.5 mg Ceftriaxone Sodium (Rocephin 1 Gram Ivpb) 1 gm in 100 mls @ 100 mls/hr IVPB DAILY [facility], [facility]1983; Protocol Last Admin: 11/06/18 10:02 Dose: 100 mls/hr Levothyroxine Sodium (Synthroid) 50 mcg PO 0600 [facility] Last Admin: 11/06/18 05:48 Dose: 50 mcg Loratadine (Claritin) 10 mg PO DAILY [facility]1983 Non-Formulary Medication (Formoterol Fumarate [Perforomist]) 20 mcg IH BID [facility] Last Admin: 11/06/18 10:01 Dose: Not Given Non-Formulary Medication (Incruse Ellipta) 1 inh INH PRN PRN PRN Reason: Shortness of Breath Ondansetron HCl (Zofran Inj) 4 mg IVP Q6H PRN PRN Reason: Nausea/Vomiting Last Admin: 11/02/18 18:21 Dose: 4 mg Pantoprazole Sodium (Protonix Ec Tab) 40 mg PO 0600 [facility] Last Admin: 11/06/18 05:45 Dose: 40 mg - Labs Labs: 11/06/18 06:00 11/06/18 06:00 PT 11.5 SECONDS (9.4-12.5) 11/02/18 11:30 INR 1.02 02/24/19 11:30 APTT 32.4 Seconds (26.9-38.3) 11/02/18 11:30 - Constitutional Appears: Well, No Acute Distress - Head Exam Head Exam: ATRAUMATIC, NORMOCEPHALIC - Eye Exam Eye Exam: Normal appearance - ENT Exam ENT Exam: Mucous Membranes Moist - Neck Exam Neck Exam: Normal Inspection - Respiratory Exam Respiratory Exam: Clear to Ausculation Bilateral, NORMAL BREATHING PATTERN. absent: Rales, Rhonchi, Wheezes, Respiratory Distress - Cardiovascular Exam Cardiovascular Exam: REGULAR RHYTHM, +S1, +S2 - GI/Abdominal Exam GI & Abdominal Exam: Soft, Normal Bowel Sounds. absent: Distended, Guarding, Rigid, Tenderness, Mass, Organomegaly, Pulsatile Mass, Rebound - Extremities Exam Extremities Exam: absent: Joint Swelling, Pedal Edema - Neurological Exam Neurological Exam: Alert, Awake, Oriented x3 - Psychiatric Exam Psychiatric exam: Normal Affect, Normal Mood - Skin Skin Exam: Dry, Intact, Normal Color, Warm Assessment and Plan - Assessment and Plan (Free Text) Assessment: This patient is a 78yo female with hx of COPD, hypothyroidism, s/p lap samantha who presented with Cholangitis. S/P ERCP POD#3 successful cannulation of CBD and visualization of large stone in duct, placed x1 stent and visualized pus Cholangitis, s/p ERCP and stent; Aspirate cultures grew E. Coli and Kleb Pn Sepsis 2/2 above, + initial blood cultures of E.coli Choledocholithiasis, large stone remain in CBD s/p stenting COPD Hypothyroidism Plan: -continue ceftriaxone IV as per ID -Diet as tolerated -will continue to observe clinical course -if pt remains stable, can consider outpt stent removal and repeat ERCP for stone extraction D/W Dr. Meek <Agustin Meek V - Last Filed: 11/06/18 23:25> Objective - Vital Signs/Intake and Output Vital Signs (last 24 hours): Temp Pulse Resp BP Pulse Ox 98.5 F 73 20 158/77 H 99 11/06/18 08:25 11/06/18 08:25 11/06/18 08:25 11/06/18 08:25 11/06/18 08:25 - Labs Labs: 11/06/18 06:00 11/06/18 06:00 PT 11.5 SECONDS (9.4-12.5) 11/02/18 11:30 INR 1.02 11/02/18 11:30 APTT 32.4 Seconds (26.9-38.3) 11/02/18 11:30 Attending/Attestation - Attestation I have personally seen and examined this patient.: Yes I have fully participated in the care of the patient.: Yes I have reviewed all pertinent clinical information, including history, physical exam and plan: Yes Notes (Text): This is an addendum to GI progress report dictated by the GI Fellow. The patient was seen and examined earlier. Medical records, lab studies, imagings were reviewed. Last 24 hours events reviewed. Agreed with the above treatment plan as outlined in GI Fellow 's notes with the addition of the following 11/06/18 23:25
--- NOTE | 2018-11-06 14:14 | CP.PCM.PN ---
Subjective - Date & Time of Evaluation Date of Evaluation: 11/06/18 Time of Evaluation: 10:15 - Subjective Subjective: Comfortable, no nausea, no abdominal pain, no fevers. Objective - Vital Signs/Intake and Output Vital Signs (last 24 hours): Temp Pulse Resp BP Pulse Ox 98 F 88 20 124/73 98 11/05/18 12:00 11/05/18 12:00 11/05/18 12:00 11/05/18 12:00 11/05/18 06:00 Intake and Output: 11/05/18 11/05/18 06:59 18:59 Intake Total 450 Balance 450 - Medications Medications: Current Medications Arformoterol Tartrate (Brovana) 15 mcg IH [id number] [facility] Last Admin: 11/05/18 07:44 Dose: 15 mcg Budesonide (Pulmicort Respules) 0.5 mg IH [id number] [facility] Last Admin: 11/05/18 07:44 Dose: 0.5 mg Lactated Ringer's (Lactated Ringer's) 1,000 mls @ 75 mls/hr IV .[id number] [facility] Last Admin: 11/05/18 09:09 Dose: 75 mls/hr Ceftriaxone Sodium (Rocephin 1 Gram Ivpb) 1 gm in 100 mls @ 100 mls/hr IVPB DAILY [facility]; Protocol Levothyroxine Sodium (Synthroid) 50 mcg PO DAILY [facility] Last Admin: 11/05/18 09:09 Dose: 50 mcg Morphine Sulfate (Morphine) 2 mg IVP Q4H PRN PRN Reason: Pain, severe (8-10) Last Admin: 11/03/18 06:39 Dose: 2 mg Ondansetron HCl (Zofran Inj) 4 mg IVP Q6H PRN PRN Reason: Nausea/Vomiting Last Admin: 11/02/18 18:21 Dose: 4 mg Pantoprazole Sodium (Protonix Ec Tab) 40 mg PO ACB [facility] - Labs Labs: 11/05/18 05:55 11/05/18 05:55 PT 11.5 SECONDS (9.4-12.5) 11/02/18 11:30 INR 1.02 11/02/18 11:30 APTT 32.4 Seconds (26.9-38.3) 11/02/18 11:30 - Constitutional Appears: Chronically Ill - Head Exam Head Exam: NORMAL INSPECTION - Respiratory Exam Respiratory Exam: Decreased Breath Sounds - Cardiovascular Exam Cardiovascular Exam: +S1, +S2 - GI/Abdominal Exam GI & Abdominal Exam: Soft. absent: Tenderness Assessment and Plan - Assessment and Plan (Free Text) Plan: Assessment Severe sepsis due to ascending cholangitis with E. coli and Klebsiella in the bile duct, with E. coli bacteremia S/P ERCP, stent placement in CBD, pus noted in the CBD Coronary Artery Disease HTN COPD Dyslipidemia Hypothyroidism Plan continue Rocephin since the E. coli and Klebsiella are sensitive and should complete total 10-14 days of antibiotics from time ERCP was done (day 3 today); repeat blood cx are negative discussed with Dr. Meek will continue to monitor clinically
--- NOTE | 2018-11-09 21:11 | DS ---
DATE OF DICTATION: 11/09/2018 DISCHARGE SUMMARY: The patient was seen and examined. I do agree with the note of the caregivers non medical that was involved in the plan of care. The patient is a 78-year-old female who was admitted to the hospital because of acute ascending cholangitis. She was treated with IV antibiotics for her sepsis and had improvement of her symptoms. She was discharged to the Transitional Care Unit for rehab. There was intervention done by GI with an ERCP. The patient is also being followed by Infectious Disease. She had acute kidney injury that had improved as well. She is currently feeling well and. This is a late entry. Alen Webb MD
== END 2018-11-06 16:51 | DRG 871 ==
LOC: ED 10:27 → ERH 15:00 → 5RNO 16:31 → CCU 11-03 19:46 → 2RNO 11-05 01:21 → 3RNO 11-05 20:17
PROVIDERS: ADMIT Internal Medicine Nephrology; ATTEND Internal Medicine Nephrology
PROC: 0DJ08ZZ Inspection of Upper Intestinal Tract, Via Natural or Artificial Opening Endoscopic (ICD-10-PCS; 2018-11-03)
PROC: BD47ZZZ Ultrasonography of Gastrointestinal Tract (ICD-10-PCS; 2018-11-03)
PROC: 0BH17EZ Insertion of Endotracheal Airway into Trachea, Via Natural or Artificial Opening (ICD-10-PCS; principal; 2018-11-03 14:00)
PROC: 5A1935Z Respiratory Ventilation, Less than 24 Consecutive Hours (ICD-10-PCS; 2018-11-03 14:00)
PROC: 0FJB8ZZ Inspection of Hepatobiliary Duct, Via Natural or Artificial Opening Endoscopic (ICD-10-PCS; 2018-11-03 14:00)
DX: A41.51 Sepsis due to Escherichia coli [E. coli] (principal); N17.0 Acute kidney failure with tubular necrosis; J95.821 Acute postprocedural respiratory failure; K80.30 Calculus of bile duct with cholangitis, unspecified, without obstruction; N39.0 Urinary tract infection, site not specified; R65.20 Severe sepsis without septic shock; E03.9 Hypothyroidism, unspecified; I10 Essential (primary) hypertension; J43.2 Centrilobular emphysema; K57.30 Diverticulosis of large intestine without perforation or abscess without bleeding; I25.10 Atherosclerotic heart disease of native coronary artery without angina pectoris; R09.02 Hypoxemia; K22.70 Barrett's esophagus without dysplasia; K21.9 Gastro-esophageal reflux disease without esophagitis; Z87.891 Personal history of nicotine dependence; B96.1 Klebsiella pneumoniae [K. pneumoniae] as the cause of diseases classified elsewhere; E78.5 Hyperlipidemia, unspecified; E83.39 Other disorders of phosphorus metabolism; I44.0 Atrioventricular block, first degree; K76.0 Fatty (change of) liver, not elsewhere classified; Z79.82 Long term (current) use of aspirin; Z87.19 Personal history of other diseases of the digestive system; Z88.0 Allergy status to penicillin; Z90.49 Acquired absence of other specified parts of digestive tract; E83.41 Hypermagnesemia; K44.9 Diaphragmatic hernia without obstruction or gangrene; K25.9 Gastric ulcer, unspecified as acute or chronic, without hemorrhage or perforation

== ENCOUNTER 2018-11-06 16:41 | Inpatient (IN) | payer OTHER, BC ==
[2018-11-06] MEDS ORDERED: INCRUSE ELLIPTA INH PRN (17:10)
[2018-11-06] MEDS: Home Med 1 UNIT INH SCH (18:29)
[2018-11-06] MEDS ORDERED: Arformoterol 15 mcg/2 ml Inh Sol IH SCH (20:00)
[2018-11-06] MEDS: Arformoterol 15 mcg/2 ml Inh Sol IH SCH (20:03)
[2018-11-06] MEDS: Budesonide 0.5 mg/2 ml Inhal Susp UD IH SCH (20:03)
[2018-11-06 20:34] VITALS: BMI 26.3
[2018-11-06] MEDS ORDERED: Influenza Vaccine 60 mcg/0.5 mL SYR (4YR UP) IM ONE (20:35)
[2018-11-06] MEDS ORDERED: Pneumococcal 23-Valent Vaccine IM ONE (20:35)
[2018-11-07] MEDS: cefTRIAXone 1 GM/100 ML BAG IVPB SCH (05:01)
[2018-11-07] MEDS: Pantoprazole 40 mg EC Tab PO SCH (05:07)
[2018-11-07] MEDS: Levothyroxine 50 MCG TAB PO SCH (05:20)
[2018-11-07] MEDS ORDERED: Non Formulary Medication (Ceftriaxone 1 Gm 1 GM) IVPB SCH (06:00)
[2018-11-07] MEDS: Arformoterol 15 mcg/2 ml Inh Sol IH SCH ×2 (07:05→19:39)
[2018-11-07] MEDS: Budesonide 0.5 mg/2 ml Inhal Susp UD IH SCH ×2 (07:06→19:39)
[2018-11-07 07:25] LABS: BASO # 0.04 K/mm3 (0.0-2.0); BASO % 0.3 % (0.0-3.0); EOS # 0.4 (0.0-0.7); HEMOGLOBIN 11.6 g/dL (12.0-16.0); LYMPH % 25.9 % (22.0-35.0); MEAN CELL VOLUME 93.7 fl (80.0-105.0); MEAN CORPUSCULAR HEMOGLOBIN 31.8 pg (25.0-35.0); MEAN CORPUSCULAR HGB CONC 33.9 g/dl (31.0-37.0); MEAN PLATELET VOLUME 11.7 fl (7.0-11.0); MONO # 1.2 (0.1-0.6); MONO % 10.4 % (1.0-6.0); RBC 3.65 10^6/uL (3.5-6.1); RED CELL DISTRIBUTION WIDTH 14.1 % (11.5-14.5); WHITE BLOOD COUNT 11.5 10^3/uL (4.5-11.0)
[2018-11-07 07:52] LABS: ALB/GLOB RATIO 0.9 (1.1-1.8); ALBUMIN 3.4 g/dL (3.0-4.8); CALCIUM 8.6 mg/dL (8.4-10.5)
[2018-11-07] MEDS: Home Med 1 UNIT INH SCH ×2 (09:32→17:20)
--- NOTE | 2018-11-07 16:05 | HP ---
DATE OF EXAM: 11/07/2018 CHIEF COMPLAINT AND HISTORY OF PRESENT ILLNESS: This is a 78-year-old female who had is come into the hospital because of obstruction in the common bile duct. The patient had ERCP and had a successful improvement. She was having ascending cholangitis. She was placed on IV antibiotics. The patient currently feels well. Her sepsis is improving. She has a blood cultures that showed E. coli. She has urine culture that shows Klebsiella. She is eating better. I did review the notes from the hospital. This is a summary of the notes. She was seen by Infectious Disease and GI. She is currently comfortable. She is placed on broad-spectrum antibiotics and currently is going to continue with Rocephin for a total of 10 days, I believe today is day #4. The patient has no headaches or dizziness. No nausea or vomiting. No dysuria or frequency. REVIEW OF SYSTEMS: All other review of symptoms are within normal limits except what was mentioned. ALLERGIES: TO PENICILLIN BUT SHE HAS TOLERATED THE ROCEPHIN AND ZOSYN. PAST SURGICAL HISTORY: Cholecystectomy. PAST MEDICAL HISTORY: Hypothyroidism, COPD, gastroesophageal reflux disease and common bile duct stone, status post ERCP. FAMILY HISTORY: Noncontributory. SOCIAL HISTORY: She was a prior smoker, but quit. She denies alcohol or drugs. PHYSICAL EXAMINATION: VITAL SIGNS: Temperature is 97.2, pulse of 79, blood pressure is 157/81, respirations 18, height is 5 feet 7 inches, weight is 168 pounds, BMI is 26. GENERAL: The patient is lying in bed, comfortable, and in no acute distress. HEENT: Atraumatic and normocephalic. Anicteric sclerae. Moist mucosa. [place] conjunctivae. No oral lesions. NECK: No JVD, anterior and posterior adenopathy, thyromegaly, or bruits. CARDIOVASCULAR: S1 and S2 regular. No murmurs, rubs or gallops. LUNGS: Clear to auscultation bilaterally. No wheezes, rales, or rhonchi. ABDOMEN: Bowel sounds are positive. Soft, nontender and nondistended. No hepatosplenomegaly. No rebound and no guarding. EXTREMITIES: No cyanosis, clubbing, or edema. NEUROLOGIC: No facial asymmetry. Tongue is midline. No uvula deviation. Power is 5/5 upper extremities and lower extremities. Sensation intact in upper extremities and lower extremities. PSYCHIATRIC: She is awake, alert and oriented x3. No anxiety or depression. She has normal affect. GENITOURINARY: No CVA tenderness. VASCULAR: 2+ pulses in the carotid pulses and pedal pulses. SKIN: No erythema or nodules. SPINE: Shows normal curvature. LABORATORY DATA: Labs shows white count of 11.5 and hemoglobin 11.6. Chemistry shows a creatinine of 1.3, AST, ALT is 47 and 84. Her last chest x-ray shows no significant abnormalities. ASSESSMENT: 1. Sepsis secondary to cholangitis secondary to Escherichia coli. 2. Acute kidney injury, resolved. 3. Hypothyroidism. 4. Urinary tract infection, secondary to Klebsiella. 5. Hypothyroidism. 6. QUESTIONABLE PENICILLIN ALLERGY. 7. Chronic obstructive pulmonary disease. PLAN: The patient is currently admitted to the Transitional Care Unit. She is feeling well. She is sitting in chair. She is going to continue with Claritin. She is on her Brovana. The patient has COPD and is going to be continued . She is on budesonide for her COPD as well. She is on Zofran as needed. At this point, I will discontinue the Zofran. She is going to be followed by Dr. Meek and Dr. Pérez. She is going to get physical therapy. She is on a heart-healthy diet and tolerating. Alen Webb MD
[2018-11-07] MEDS ORDERED: INCRUSE ELLIPTA INH PRN (18:30)
--- NOTE | 2018-11-08 02:21 | CON ---
DATE: 11/07/2018 LOCATION: The patient was seen earlier today in Room 360. CHIEF COMPLAINT: Weakness x7 days. HISTORY OF PRESENT ILLNESS: This is a 78-year-old female with past medical history of end-stage chronic obstructive lung disease, emphysema, hypothyroidism, hypertension, coronary artery disease, history of cholecystectomy, and who was admitted to the emergency room for her abdominal pain. The patient had workup in the emergency room and had improved and now transferred to Transitional Care for completion of therapy. REVIEW OF SYSTEMS: Revealed the patient has no fevers, no chills, just the generalized weakness and now . No nausea or vomiting. No chest pain. No shortness of breath or cough. Review of systems, a 12-point review of systems was performed. PAST MEDICAL HISTORY: Significant for hypertension, chronic obstructive lung disease, hypothyroidism, dyslipidemia and emphysema. PAST SURGICAL HISTORY: Significant for a cholecystectomy. ALLERGIES: THE PATIENT IS ALLERGIC TO PENICILLIN. PHYSICAL EXAMINATION VITAL SIGNS: The patient's temperature is 98, blood pressure is 112/70, respiratory rate of 18. HEENT: Unremarkable. NECK: Supple. LUNGS: Decreased breath sounds. HEART: Normal S1 and S2. ABDOMEN: Soft, nontender. LABORATORY DATA: Reveals the patient's chemistries are reviewed, creatinine of 2.5. White count is noted. Cultures are reviewed. ASSESSMENT AND PLAN: This is a 78-year-old female who was admitted with severe sepsis with ascending cholangitis with Escherichia coli and Klebsiella in the bile duct with Escherichia coli bacteremia, status post endoscopic retrograde cholangiopancreatography, stent placement and common bile duct pus noted in the common bile duct in a patient with coronary artery disease,chronic obstructive lung disease, hypertension, dyslipidemia, and currently on ceftriaxone and should complete 10 to 14 days. The patient had endoscopic retrograde cholangiopancreatography, today is day #4, endoscopic retrograde cholangiopancreatography with blood cultures that are negative [place] [id number]. Review of microbiology reveals initially an Escherichia coli in the blood, that was pansensitive, Klebsiella in the urine, which is also relatively sensitive in her bile the patient had Klebsiella and Escherichia coli. We will continue the ceftriaxone. Dhaval Pérez MD
[2018-11-08] MEDS: cefTRIAXone 1 GM/100 ML BAG IVPB SCH (05:29)
[2018-11-08] MEDS: Levothyroxine 50 MCG TAB PO SCH (05:30)
[2018-11-08] MEDS: Pantoprazole 40 mg EC Tab PO SCH (05:30)
[2018-11-08] MEDS: Budesonide 0.5 mg/2 ml Inhal Susp UD IH SCH ×2 (07:07→21:10)
[2018-11-08] MEDS: Arformoterol 15 mcg/2 ml Inh Sol IH SCH ×2 (07:07→21:10)
[2018-11-08] MEDS: Home Med 1 UNIT INH SCH ×2 (09:57→17:50)
--- NOTE | 2018-11-08 10:59 | PN ---
DATE: 11/08/2018 SUBJECTIVE: The patient has no complaints of any chest pain or shortness of breath. No headaches or dizziness. PHYSICAL EXAMINATION: VITAL SIGNS: Temperature is 97.7, pulse is 77, blood pressure 165/77, and respirations 18. GENERAL: The patient is lying in bed, flat, comfortable. HEENT: No oral lesion. Anicteric sclerae. Moist mucosa. NECK: No JVD, adenopathy, or thyromegaly. CARDIOVASCULAR: S1 and S2, regular. No murmurs, rubs, or gallops. LUNGS: Clear to auscultation bilaterally. No wheeze, rales, or rhonchi. ABDOMEN: Bowel sounds are positive, soft, nontender and nondistended. EXTREMITIES: No cyanosis, clubbing or edema. LABORATORY DATA: White count of 11.5, . ASSESSMENT: 1. Sepsis secondary to ascending cholangitis secondary to Escherichia coli, improving. 2. Acute kidney injury. 3. Hypothyroidism. 4. Urinary tract infection, secondary to Klebsiella. 5. Chronic obstructive pulmonary disease. PLAN: The patient is currently receiving Broavana. We are going to continue with Protonix. She is on Rocephin for antibiotics. She is on a heart healthy diet. The patient will continue with physical therapy. We will continue with current management. The patient is being followed by ID. Alen Webb MD
--- NOTE | 2018-11-08 19:19 | PN ---
DATE: 11/08/2018 SUBJECTIVE: The patient is seen in bed, no acute distress, nontoxic. PHYSICAL EXAMINATION: VITAL SIGNS: Temperature is 97, blood pressure is 165/70, respiratory rate 18. HEENT: Unremarkable. NECK: Supple. LUNGS: Decreased breath sounds. HEART: Normal S1, S2. ABDOMEN: Soft, nontender. LABORATORY EXAMINATION: Reveals a white count of 11,500, hemoglobin of 11, platelets of 174. BUN of 48, creatinine of 1.3, alk phos of 251. Microbiology is noted. ASSESSMENT AND PLAN: A 78-year-old female who was admitted with severe sepsis, ascending cholangitis, Escherichia coli and klebsiella in the bile with Escherichia coli bacteremia, status post endoscopic retrograde cholangiopancreatography and stent placement and common bile duct pus noted in the common bile duct in a patient with coronary artery disease,chronic obstructive lung disease, hypertension, currently on ceftriaxone and statu post endoscopic retrograde cholangiopancreatography, today is day #5, and blood cultures negative and white count is normal. We will continue the ceftriaxone. Review of orders have confirmed patient's bacteremia was on the . Dhaval Pérez MD
[2018-11-09] MEDS: Pantoprazole 40 mg EC Tab PO SCH (05:03)
[2018-11-09] MEDS: Levothyroxine 50 MCG TAB PO SCH (05:03)
[2018-11-09] MEDS: cefTRIAXone 1 GM/100 ML BAG IVPB SCH (05:03)
[2018-11-09] MEDS: Budesonide 0.5 mg/2 ml Inhal Susp UD IH SCH ×2 (07:15→21:15)
[2018-11-09] MEDS: Arformoterol 15 mcg/2 ml Inh Sol IH SCH ×2 (07:15→21:15)
[2018-11-09] MEDS: Home Med 1 UNIT INH SCH ×2 (10:09→17:04)
--- NOTE | 2018-11-09 15:08 | PN ---
DATE: 11/09/2018 SUBJECTIVE: The patient is in bed, no acute distress, nontoxic. No fevers. PHYSICAL EXAMINATION VITAL SIGNS: Temperature is 98, blood pressure is 150/70, respiratory rate 20, heart rate of 78. HEENT: Examination of HEENT is unremarkable. NECK: Supple. LUNGS: Have decreased breath sounds. HEART: Normal S1 and S2. ABDOMEN: Soft. LABORATORY EXAMINATION: Reveals a white count of 11,500, hemoglobin of 12, and platelets of 174. Chemistries are noted with a creatinine of 1.3. Review of orders reveals the patient to be on ceftriaxone. ASSESSMENT AND PLAN: The patient is 78-year-old, who was admitted with severe sepsis, Escherichia coli, bacteremia, status post endoscopic retrograde cholangiopancreatography and stent placement, common bile duct with a history of coronary artery disease, chronic obstructive lung disease, hypertension, currently on ceftriaxone, day #6 status post endoscopic retrograde cholangiopancreatography. Blood culture is negative. White count is normal. We will be able to switch to p.o. antibiotics upon discharge. We will discuss with Dr. Webb. Dhaval Pérez MD
--- NOTE | 2018-11-09 22:38 | PN ---
DATE: 11/09/2018 SUBJECTIVE: The patient is 78 years old. Seen and examined. Sitting in chair. Seems to be comfortable. No nausea or vomiting. No diarrhea. Eating and tolerating. PHYSICAL EXAMINATION: VITAL SIGNS: She is afebrile, pulse 83, respirations 18, and blood pressure 146/75. LUNGS: Bilateral fair airflow. No rhonchi or crackles. HEART: S1 and S2 audible. ABDOMEN: Soft. Nontender. No rebound. No guarding. NEUROLOGIC: The patient is awake, alert, and oriented. Able to communicate. EXTREMITIES: Bilateral leg, +1 edema. LABORATORY EXAMINATION: Sodium 138, potassium 4.1, chloride 108, CO2 of 23, BUN 48, creatinine 1.3, and blood sugar of 102. AST 47 and ALT 84. ASSESSMENT: 1. Status post sepsis because of cholangitis. 2. Acute on chronic renal failure. 3. Hypothyroidism. 4. Klebsiella urinary tract infection. 5. History of chronic obstructive pulmonary disease. 6. Hypertension. PLAN: The patient's MAR is reviewed. Seems to be appropriate. Continue her on Brovana. She is on amlodipine. She is on Protonix. She is getting Rocephin and levothyroxine. We will follow up her electrolyte and CBC intermittently. Wyatt Cuello MD
[2018-11-10] MEDS: Pantoprazole 40 mg EC Tab PO SCH (05:41)
[2018-11-10] MEDS: cefTRIAXone 1 GM/100 ML BAG IVPB SCH (05:41)
[2018-11-10] MEDS: Levothyroxine 50 MCG TAB PO SCH (05:41)
[2018-11-10] MEDS: Budesonide 0.5 mg/2 ml Inhal Susp UD IH SCH ×2 (07:07→19:20)
[2018-11-10] MEDS: Arformoterol 15 mcg/2 ml Inh Sol IH SCH ×2 (07:07→19:20)
[2018-11-10] MEDS: Home Med 1 UNIT INH SCH ×2 (10:37→16:59)
--- NOTE | 2018-11-10 12:49 | PN ---
DATE: 11/10/2018 SUBJECTIVE: The patient is in bed in no acute distress, nontoxic. PHYSICAL EXAMINATION: VITAL SIGNS: Temperature is 98, blood pressure is 150/70, respiratory rate of 18. HEENT: Unremarkable. NECK: Supple. LUNGS: Decreased breath sounds. HEART: Normal, S1 and S2. ABDOMEN: Soft. LABORATORY DATA: Examination reveals a white count of 11,000, hemoglobin 11, platelets of 174. Chemistries reveal a BUN of 48, creatinine of 1.3. ASSESSMENT AND PLAN: A 78-year-old female seen earlier today in [facility], admitted initially with severe sepsis, Escherichia coli bacteremia, status post endoscopic retrograde cholangiopancreatography, stent placement in common bile duct, history of coronary artery disease, chronic obstructive lung disease, hypertension. Currently on ceftriaxone day #7 post endoscopic retrograde cholangiopancreatography, cultures negative, may change to by mouth antibiotics upon discharge. Dhaval Pérez MD
--- NOTE | 2018-11-10 16:13 | CP.PCM.PN ---
<Mercy Maldonado - Last Filed: 11/10/18 16:10> Subjective - Date & Time of Evaluation Date of Evaluation: 11/10/18 Time of Evaluation: 10:00 - Subjective Subjective: Mercy Maldonado, PGY2, Medicine Progress Note for Dr Webb: Patient seen and examined at bedside. No acute events overnight. Patient reports poor sleep overnight, and asks for something to help her sleep. Otherwise, denies abdominal pain, nausea, vomiting, fevers, chills, leg swelling. States that she is eating well and ambulating with physical therapy as well. Objective - Vital Signs/Intake and Output Vital Signs (last 24 hours): Temp Pulse Resp BP Pulse Ox 98.3 F 86 18 152/79 H 95 11/09/18 16:00 11/09/18 16:00 11/09/18 16:00 11/10/18 14:39 11/09/18 16:00 Intake and Output: 11/10/18 11/10/18 06:59 18:59 Intake Total 420 420 Balance 420 420 - Medications Medications: Current Medications Amlodipine Besylate (Norvasc) 10 mg PO DAILY [facility] Last Admin: 11/10/18 10:38 Dose: Not Given Arformoterol Tartrate (Brovana) 15 mcg IH [id number] [facility] Last Admin: 11/10/18 07:07 Dose: 15 mcg Budesonide (Pulmicort Respules) 0.5 mg IH [id number] [facility] Last Admin: 11/10/18 07:07 Dose: 0.5 mg Home Med (Home Med) 1 unit INH BID [facility] Last Admin: 11/10/18 10:37 Dose: Not Given Home Med (Home Med) 1 unit INH DAILY PRN PRN Reason: Shortness of Breath Ceftriaxone Sodium (Rocephin 1 Gram Ivpb) 1 gm in 100 mls @ 100 mls/hr IVPB 0600 [facility] Last Admin: 11/10/18 05:41 Dose: 100 mls/hr Levothyroxine Sodium (Synthroid) 50 mcg PO 0600 [facility] Last Admin: 11/10/18 05:41 Dose: 50 mcg Lisinopril (Zestril) 10 mg PO DAILY [facility] Last Admin: 11/10/18 10:38 Dose: 10 mg Loratadine (Claritin) 10 mg PO DAILY [facility] Last Admin: 11/10/18 10:38 Dose: 10 mg Pantoprazole Sodium (Protonix Ec Tab) 40 mg PO 0600 [facility] Last Admin: 11/10/18 05:41 Dose: 40 mg Zolpidem Tartrate (Ambien) 5 mg PO HS PRN; Protocol PRN Reason: Insomnia - Labs Labs: 11/07/18 07:00 11/07/18 07:00 - Additional Findings Additional findings: - Constitutional Appears: Well, No Acute Distress - Head Exam Head Exam: ATRAUMATIC, NORMOCEPHALIC - Eye Exam Eye Exam: Normal appearance - ENT Exam ENT Exam: Mucous Membranes Moist, Normal Exam - Neck Exam Neck Exam: Normal Inspection - Respiratory Exam Respiratory Exam: Clear to Ausculation Bilateral, NORMAL BREATHING PATTERN. absent: Rales, Rhonchi, Wheezes, Respiratory Distress - Cardiovascular Exam Cardiovascular Exam: REGULAR RHYTHM, +S1, +S2 - GI/Abdominal Exam GI & Abdominal Exam: Soft, Normal Bowel Sounds. absent: Distended, Firm, Guarding, Rigid, Tenderness, Organomegaly, Pulsatile Mass, Rebound - Extremities Exam Extremities Exam: 1+ pitting edema bilaterally. absent: Joint Swelling, calf tenderness - Back Exam Back Exam: NORMAL INSPECTION - Neurological Exam Neurological Exam: Alert, Awake, Oriented x3 - Psychiatric Exam Psychiatric exam: Normal Affect, Normal Mood - Skin Skin Exam: Dry, Intact, Normal Color, Warm Assessment and Plan - Assessment and Plan (Free Text) Assessment: 1. E.coli bacteremia 2. Ascending cholangitis, resolving, 2/2 e coli and klebsiella 3. UTI 2/2 klebsiella 4. Fatty liver 5. ABILIO 6. Respiratory failure post ERCP, resolved 7. Hypothyroidism 8. leg edema 9. HTN Will continue with rocephin D7/10-14 per ID. Will continue with brovana pulmicort. Will give lasix 40 mg x1 dose. Continue with synthroid for hypot hyroidism. Continue with lisinopril and norvasc for htn. Protonix for GI prophylaxis, and scds for dvt ppx. Repeat blood and urine cultures have been negative. Patient's scheduled discharge from TCU is on 11/14. Case discussed with Dr Webb. <Alen Webb - Last Filed: 11/10/18 17:31> Objective - Vital Signs/Intake and Output Vital Signs (last 24 hours): Temp Pulse Resp BP Pulse Ox 98 F 80 18 149/76 97 11/10/18 16:00 11/10/18 16:00 11/10/18 16:00 11/10/18 16:00 11/10/18 16:00 Intake and Output: 11/10/18 11/10/18 06:59 18:59 Intake Total 420 420 Balance 420 420 - Medications Medications: Current Medications Amlodipine Besylate (Norvasc) 10 mg PO DAILY [facility] Last Admin: 11/10/18 10:38 Dose: Not Given Arformoterol Tartrate (Brovana) 15 mcg IH [id number] [facility] Last Admin: 11/10/18 07:07 Dose: 15 mcg Budesonide (Pulmicort Respules) 0.5 mg IH [id number] [facility] Last Admin: 11/10/18 07:07 Dose: 0.5 mg Home Med (Home Med) 1 unit INH BID [facility] Last Admin: 11/10/18 16:59 Dose: Not Given Home Med (Home Med) 1 unit INH DAILY PRN PRN Reason: Shortness of Breath Ceftriaxone Sodium (Rocephin 1 Gram Ivpb) 1 gm in 100 mls @ 100 mls/hr IVPB 0600 [facility] Last Admin: 11/10/18 05:41 Dose: 100 mls/hr Levothyroxine Sodium (Synthroid) 50 mcg PO 0600 [facility] Last Admin: 11/10/18 05:41 Dose: 50 mcg Lisinopril (Zestril) 10 mg PO DAILY [facility] Last Admin: 11/10/18 10:38 Dose: 10 mg Loratadine (Claritin) 10 mg PO DAILY [facility] Last Admin: 11/10/18 10:38 Dose: 10 mg Pantoprazole Sodium (Protonix Ec Tab) 40 mg PO 0600 [facility] Last Admin: 11/10/18 05:41 Dose: 40 mg Zolpidem Tartrate (Ambien) 5 mg PO HS PRN; Protocol PRN Reason: Insomnia - Labs Labs: 11/07/18 07:00 11/07/18 07:00 Assessment and Plan - Assessment and Plan (Free Text) Assessment: Pt seen and examined by me. I have reviewed the note of the medical auditor and I agree with it. I have discussed the assessment and plan with the resident. I have reviewed the medications and the last labs.
--- NOTE | 2018-11-10 22:17 | PN ---
DATE: 11/10/2018 The patient is seen and examined. I do agree with the note of the medical records auditor. I was involved in the plan of care. The patient is currently on the transitional care unit and being treated for E. coli bacteremia. The patient had ascending cholangitis. I did speak with ID. The patient is going to continue with physical therapy. She is on lisinopril and Norvasc for her hypertension. These are new medications that she had not been on before. Her blood pressure was elevated today until I have started her on lisinopril today. The patient's repeat blood pressure is better, is 149/76. She is on Claritin as needed. She is receiving Synthroid for her hypothyroidism. She is eating well. She denies any pain. Alen Webb MD
[2018-11-11] MEDS: Pantoprazole 40 mg EC Tab PO SCH (05:23)
[2018-11-11] MEDS: Levothyroxine 50 MCG TAB PO SCH (05:23)
[2018-11-11] MEDS: cefTRIAXone 1 GM/100 ML BAG IVPB SCH (05:23)
[2018-11-11] MEDS: Arformoterol 15 mcg/2 ml Inh Sol IH SCH ×2 (08:52→20:15)
[2018-11-11] MEDS: Budesonide 0.5 mg/2 ml Inhal Susp UD IH SCH ×2 (08:53→20:18)
--- NOTE | 2018-11-11 10:24 | CP.PCM.PN ---
<Mercy Maldonado - Last Filed: 11/11/18 10:04> Subjective - Date & Time of Evaluation Date of Evaluation: 11/11/18 Time of Evaluation: 07:30 - Subjective Subjective: Mercy Maldonado, PGY2, Medicine Progress Note for Dr Webb: Patient seen and examined at bedside. No acute events overnight. Patient reports better sleep overnight. Patient advised to ask for Ambien at bedtime if needed for sleep. Patient reports feeling well, eating well. Patient is working with physical therapy at the unit as well. Patient reports mildly improved lower extremity swelling. Denies sob, chest pain, nausea, vomiting, fevers, chills, abdominal pain, dysuria. Spoke with daughter Keerthi, over the phone. Updated her about patient's status and discharge. She would like follow up with Dr Pratt once patient is discharged. Objective - Vital Signs/Intake and Output Vital Signs (last 24 hours): Temp Pulse Resp BP Pulse Ox 98 F 80 18 149/76 97 11/10/18 16:00 11/10/18 16:00 11/10/18 16:00 11/10/18 16:00 11/10/18 16:00 Intake and Output: 11/11/18 11/11/18 06:59 18:59 Intake Total 380 Balance 380 - Medications Medications: Current Medications Amlodipine Besylate (Norvasc) 10 mg PO DAILY [facility] Last Admin: 11/10/18 10:38 Dose: Not Given Arformoterol Tartrate (Brovana) 15 mcg IH [id number] [facility] Last Admin: 11/11/18 08:52 Dose: 15 mcg Budesonide (Pulmicort Respules) 0.5 mg IH [id number] [facility] Last Admin: 11/11/18 08:53 Dose: 0.5 mg Furosemide (Lasix) 40 mg PO DAILY [facility] Home Med (Home Med) 1 unit INH BID [facility] Last Admin: 11/10/18 16:59 Dose: Not Given Home Med (Home Med) 1 unit INH DAILY PRN PRN Reason: Shortness of Breath Ceftriaxone Sodium (Rocephin 1 Gram Ivpb) 1 gm in 100 mls @ 100 mls/hr IVPB 0600 [facility] Last Admin: 11/11/18 05:23 Dose: 100 mls/hr Levothyroxine Sodium (Synthroid) 50 mcg PO 0600 [facility] Last Admin: 11/11/18 05:23 Dose: 50 mcg Lisinopril (Zestril) 10 mg PO DAILY [facility] Last Admin: 11/10/18 10:38 Dose: 10 mg Loratadine (Claritin) 10 mg PO DAILY [facility] Last Admin: 11/10/18 10:38 Dose: 10 mg Pantoprazole Sodium (Protonix Ec Tab) 40 mg PO 0600 [facility] Last Admin: 11/11/18 05:23 Dose: 40 mg Zolpidem Tartrate (Ambien) 5 mg PO HS PRN; Protocol PRN Reason: Insomnia - Labs Labs: 11/07/18 07:00 11/07/18 07:00 - Additional Findings Additional findings: - Constitutional Appears: Well, No Acute Distress - Head Exam Head Exam: ATRAUMATIC, NORMOCEPHALIC - Eye Exam Eye Exam: Normal appearance - ENT Exam ENT Exam: Mucous Membranes Moist, Normal Exam - Neck Exam Neck Exam: Normal Inspection - Respiratory Exam Respiratory Exam: Clear to Ausculation Bilateral, NORMAL BREATHING PATTERN. absent: Rales, Rhonchi, Wheezes, Respiratory Distress - Cardiovascular Exam Cardiovascular Exam: REGULAR RHYTHM, +S1, +S2 - GI/Abdominal Exam GI & Abdominal Exam: Soft, Normal Bowel Sounds. absent: Distended, Firm, Guarding, Rigid, Tenderness, Organomegaly, Pulsatile Mass, Rebound - Extremities Exam Extremities Exam: 1+ pitting edema bilaterally. absent: Joint Swelling, calf tenderness - Back Exam Back Exam: NORMAL INSPECTION - Neurological Exam Neurological Exam: Alert, Awake, Oriented x3 - Psychiatric Exam Psychiatric exam: Normal Affect, Normal Mood - Skin Skin Exam: Dry, Intact, Normal Color, Warm Assessment and Plan - Assessment and Plan (Free Text) Assessment: 1. E.coli bacteremia 2. Ascending cholangitis, resolving, 2/2 e coli and klebsiella 3. UTI 2/2 klebsiella 4. Fatty liver 5. ABILIO 6. Respiratory failure post ERCP, resolved 7. Hypothyroidism 8. leg edema 9. HTN Will continue with rocephin D8/10-14 per ID. Will continue with remy mcmillan. Given her persistent leg edema, will start her on lasix 40 mg PO daily, daily weights. Will order CMP for tomorrow AM to monitor Cr. Continue with synthroid for hypothyroidism. Continue with lisinopril and norvasc for htn. Protonix for GI prophylaxis, and scds for dvt ppx. Repeat blood and urine cultures have been negative. Patient's scheduled discharge from TCU is on 11/14. Case reviewed and discussed with Dr Webb. <Alen Webb S - Last Filed: 11/11/18 17:24> Objective - Vital Signs/Intake and Output Vital Signs (last 24 hours): Temp Pulse Resp BP Pulse Ox 97.7 F 85 20 112/73 94 L 11/11/18 16:00 11/11/18 16:00 11/11/18 16:00 11/11/18 16:00 11/11/18 16:00 Intake and Output: 11/11/18 11/11/18 06:59 18:59 Intake Total 380 Balance 380 - Medications Medications: Current Medications Amlodipine Besylate (Norvasc) 10 mg PO DAILY [facility] Last Admin: 11/11/18 11:01 Dose: 10 mg Arformoterol Tartrate (Brovana) 15 mcg IH [id number] [facility] Last Admin: 11/11/18 08:52 Dose: 15 mcg Budesonide (Pulmicort Respules) 0.5 mg IH [id number] [facility] Last Admin: 11/11/18 08:53 Dose: 0.5 mg Furosemide (Lasix) 40 mg PO DAILY [facility] Last Admin: 11/11/18 11:00 Dose: 40 mg Home Med (Home Med) 1 unit INH BID [facility] Last Admin: 11/11/18 11:00 Dose: Not Given Home Med (Home Med) 1 unit INH DAILY PRN PRN Reason: Shortness of Breath Ceftriaxone Sodium (Rocephin 1 Gram Ivpb) 1 gm in 100 mls @ 100 mls/hr IVPB 0600 [facility] Last Admin: 11/11/18 05:23 Dose: 100 mls/hr Levothyroxine Sodium (Synthroid) 50 mcg PO 0600 [facility] Last Admin: 11/11/18 05:23 Dose: 50 mcg Lisinopril (Zestril) 10 mg PO DAILY [facility] Last Admin: 11/11/18 11:01 Dose: 10 mg Loratadine (Claritin) 10 mg PO DAILY [facility] Last Admin: 11/11/18 10:59 Dose: 10 mg Pantoprazole Sodium (Protonix Ec Tab) 40 mg PO 0600 [facility] Last Admin: 11/11/18 05:23 Dose: 40 mg Zolpidem Tartrate (Ambien) 5 mg PO HS PRN; Protocol PRN Reason: Insomnia - Labs Labs: 11/07/18 07:00 11/07/18 07:00 Assessment and Plan - Assessment and Plan (Free Text) Assessment: Pt seen and examined by me. I have reviewed the note of the medical care administrator and I agree with it. I have discussed the assessment and plan with the resident. I have reviewed the medications and the last labs.
[2018-11-11] MEDS: Home Med 1 UNIT INH SCH ×2 (11:00→17:48)
--- NOTE | 2018-11-11 11:21 | CP.PCM.PN ---
<Mandeep Mak - Last Filed: 11/11/18 11:18> Subjective - Date & Time of Evaluation Date of Evaluation: 11/11/18 Time of Evaluation: 11:18 - Subjective Subjective: Patient is doing well. No complains of abdominal pain. She is walking with physical therapy. She is tolerating diet. Objective - Vital Signs/Intake and Output Vital Signs (last 24 hours): Temp Pulse Resp BP Pulse Ox 98 F 76 18 154/74 H 97 11/10/18 16:00 11/11/18 11:01 11/10/18 16:00 11/11/18 11:01 11/10/18 16:00 Intake and Output: 11/11/18 11/11/18 06:59 18:59 Intake Total 380 Balance 380 - Medications Medications: Current Medications Amlodipine Besylate (Norvasc) 10 mg PO DAILY [facility] Last Admin: 11/11/18 11:01 Dose: 10 mg Arformoterol Tartrate (Brovana) 15 mcg IH [id number] [facility] Last Admin: 11/11/18 08:52 Dose: 15 mcg Budesonide (Pulmicort Respules) 0.5 mg IH [id number] [facility] Last Admin: 11/11/18 08:53 Dose: 0.5 mg Furosemide (Lasix) 40 mg PO DAILY [facility] Last Admin: 11/11/18 11:00 Dose: 40 mg Home Med (Home Med) 1 unit INH BID [facility] Last Admin: 11/11/18 11:00 Dose: Not Given Home Med (Home Med) 1 unit INH DAILY PRN PRN Reason: Shortness of Breath Ceftriaxone Sodium (Rocephin 1 Gram Ivpb) 1 gm in 100 mls @ 100 mls/hr IVPB 0600 [facility] Last Admin: 11/11/18 05:23 Dose: 100 mls/hr Levothyroxine Sodium (Synthroid) 50 mcg PO 0600 [facility] Last Admin: 11/11/18 05:23 Dose: 50 mcg Lisinopril (Zestril) 10 mg PO DAILY [facility] Last Admin: 11/11/18 11:01 Dose: 10 mg Loratadine (Claritin) 10 mg PO DAILY [facility] Last Admin: 11/11/18 10:59 Dose: 10 mg Pantoprazole Sodium (Protonix Ec Tab) 40 mg PO 0600 [facility] Last Admin: 11/11/18 05:23 Dose: 40 mg Zolpidem Tartrate (Ambien) 5 mg PO HS PRN; Protocol PRN Reason: Insomnia - Labs Labs: 11/07/18 07:00 11/07/18 07:00 - Constitutional Appears: Well, Non-toxic, No Acute Distress - Head Exam Head Exam: ATRAUMATIC, NORMAL INSPECTION - Eye Exam Eye Exam: EOMI, Normal appearance - ENT Exam ENT Exam: Mucous Membranes Moist, Normal Exam - Respiratory Exam Respiratory Exam: Clear to Ausculation Bilateral, NORMAL BREATHING PATTERN - Cardiovascular Exam Cardiovascular Exam: REGULAR RHYTHM, +S1, +S2 - Extremities Exam Extremities Exam: Normal Inspection. absent: Pedal Edema - Neurological Exam Neurological Exam: Alert, Awake, Oriented x3 - Psychiatric Exam Psychiatric exam: Normal Affect, Normal Mood Assessment and Plan - Assessment and Plan (Free Text) Assessment: This patient is a 78yo female with hx of COPD, hypothyroidism, s/p lap samantha who presented with Cholangitis. S/P ERCP POD#3 successful cannulation of CBD and visualization of large stone in duct, placed x1 stent and visualized pus Cholangitis, s/p ERCP and stent; Aspirate cultures grew E. Coli and Kleb Pn Sepsis 2/2 above, + initial blood cultures of E.coli Choledocholithiasis, large stone remain in CBD s/p stenting COPD Hypothyroidism Plan: -continue ceftriaxone IV as per ID -Diet as tolerated -will continue to observe clinical course -Follow up outpatient in 4 weeks for stent removal and stone extraction D/W Dr. Meek, see attestation <Agustin Meek V - Last Filed: 11/11/18 20:52> Objective - Vital Signs/Intake and Output Vital Signs (last 24 hours): Temp Pulse Resp BP Pulse Ox 97.7 F 85 20 112/73 94 L 11/11/18 16:00 11/11/18 16:00 11/11/18 16:00 11/11/18 16:00 11/11/18 16:00 - Medications Medications: Current Medications Amlodipine Besylate (Norvasc) 10 mg PO DAILY [facility] Last Admin: 11/11/18 11:01 Dose: 10 mg Arformoterol Tartrate (Brovana) 15 mcg IH [id number] [facility] Last Admin: 11/11/18 20:15 Dose: 15 mcg Budesonide (Pulmicort Respules) 0.5 mg IH [id number] [facility] Last Admin: 11/11/18 20:18 Dose: 0.5 mg Furosemide (Lasix) 40 mg PO DAILY [facility] Last Admin: 11/11/18 11:00 Dose: 40 mg Home Med (Home Med) 1 unit INH BID [facility] Last Admin: 11/11/18 17:48 Dose: Not Given Home Med (Home Med) 1 unit INH DAILY PRN PRN Reason: Shortness of Breath Ceftriaxone Sodium (Rocephin 1 Gram Ivpb) 1 gm in 100 mls @ 100 mls/hr IVPB 0600 [facility] Last Admin: 11/11/18 05:23 Dose: 100 mls/hr Levothyroxine Sodium (Synthroid) 50 mcg PO 0600 [facility] Last Admin: 11/11/18 05:23 Dose: 50 mcg Lisinopril (Zestril) 10 mg PO DAILY [facility] Last Admin: 11/11/18 11:01 Dose: 10 mg Loratadine (Claritin) 10 mg PO DAILY [facility] Last Admin: 11/11/18 10:59 Dose: 10 mg Pantoprazole Sodium (Protonix Ec Tab) 40 mg PO 0600 [facility] Last Admin: 11/11/18 05:23 Dose: 40 mg Zolpidem Tartrate (Ambien) 5 mg PO HS PRN; Protocol PRN Reason: Insomnia - Labs Labs: 11/07/18 07:00 11/07/18 07:00 Attending/Attestation - Attestation I have personally seen and examined this patient.: Yes I have fully participated in the care of the patient.: Yes I have reviewed all pertinent clinical information, including history, physical exam and plan: Yes Notes (Text): This is an addendum to GI progress report dictated by the GI Fellow. The patient was seen and examined earlier. Medical records, lab studies, imagings were reviewed. Last 24 hours events reviewed. 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
--- NOTE | 2018-11-11 13:17 | PN ---
DATE: 11/11/2018 SUBJECTIVE: The patient is in bed, in no acute distress, nontoxic. The patient is seen earlier today in room 316. PHYSICAL EXAMINATION VITAL SIGNS: Temperature is 98, blood pressure is 140/70, respiratory rate 18, heart rate of 80. HEENT: Unremarkable. NECK: Supple. LUNGS: Decreased breath sounds. HEART: Normal S1 and S2. ABDOMEN: Soft, nontender. LABORATORY DATA: Reveals a white count of 11,500, hemoglobin 11. Chemistries are noted. Microbiology is noted. ASSESSMENT AND PLAN: This is a 78-year-old female, seen earlier today in room 316, admitted with severe sepsis, Escherichia coli bacteremia, status post endoscopic retrograde cholangiopancreatography, stent placement in common bile duct, and coronary artery disease, chronic obstructive lung disease, currently on ceftriaxone. The patient is post endoscopic retrograde cholangiopancreatography and may switch to antibiotics upon discharge. Dhaval Pérez MD
--- NOTE | 2018-11-11 20:38 | PN ---
DATE: 11/11/2018 The patient was seen and examined. I do agree with the note of the medical lab technician. I was involved in the patient's final care. She had thickening cholangitis with sepsis secondary to E. coli that had improved. She also had a urinary tract infection. She has been treated for this as well. The patient had acute kidney injury that has also improved. She is on the transitional care unit for rehabilitation. Her last creatinine was 1.3. She will get repeat blood work tomorrow. She is on Ambien for insomnia. She is on Norvasc for her hypertension. She is also on lisinopril for her hypertension. Her blood pressure is better controlled at this point. She is on Synthroid for hypothyroidism. Alen Webb MD
[2018-11-12] MEDS: cefTRIAXone 1 GM/100 ML BAG IVPB SCH (06:00)
[2018-11-12] MEDS: Levothyroxine 50 MCG TAB PO SCH (06:00)
[2018-11-12] MEDS: Pantoprazole 40 mg EC Tab PO SCH (06:00)
[2018-11-12 06:50] LABS: BASO # 0.03 K/mm3 (0.0-2.0); BASO % 0.4 % (0.0-3.0); EOS # 0.3 (0.0-0.7); EOS % 3.7 % (1.5-5.0); HEMOGLOBIN 11.1 g/dL (12.0-16.0); LYMPH # 2.2 (1.2-3.4); LYMPH % 28.1 % (22.0-35.0); MEAN CELL VOLUME 96.3 fl (80.0-105.0); MEAN CORPUSCULAR HEMOGLOBIN 31.9 pg (25.0-35.0); MEAN CORPUSCULAR HGB CONC 33.1 g/dl (31.0-37.0); MEAN PLATELET VOLUME 11.3 fl (7.0-11.0); MONO # 0.7 (0.1-0.6); MONO % 9.3 % (1.0-6.0); RBC 3.48 10^6/uL (3.5-6.1); RED CELL DISTRIBUTION WIDTH 14.5 % (11.5-14.5); WHITE BLOOD COUNT 7.8 10^3/uL (4.5-11.0)
[2018-11-12 06:58] LABS: ALBUMIN 3.6 g/dL (3.0-4.8); ALT/SGPT 46 U/L (7-56); AST/SGOT 41 U/L (14-36); BLOOD UREA NITROGEN 15 mg/dL (7-21); CALCIUM 8.9 mg/dL (8.4-10.5); GFR NON-AFRICAN AMERICAN > 60
[2018-11-12] MEDS: Arformoterol 15 mcg/2 ml Inh Sol IH SCH (07:36)
[2018-11-12] MEDS: Budesonide 0.5 mg/2 ml Inhal Susp UD IH SCH (07:36)
--- NOTE | 2018-11-12 07:53 | CP.PCM.PN ---
<Mercy Maldonado - Last Filed: 11/12/18 14:47> Subjective - Date & Time of Evaluation Date of Evaluation: 11/12/18 Time of Evaluation: 07:53 - Subjective Subjective: Mercy Maldonado, PGY2, Medicine Progress Note for Dr Webb: Patient seen and examined at bedside. No acute events overnight. Patient reports not sleeping well overnight. Did not received Ambien. Reports eating well, tolerating and participating in physical therapy well. Denies abdominal pain, nausea, vomiting, fevers, chills, urinary symptoms. Reports improving leg edema. Objective - Vital Signs/Intake and Output Vital Signs (last 24 hours): Temp Pulse Resp BP Pulse Ox 97.7 F 85 20 112/73 94 L 11/11/18 16:00 11/11/18 16:00 11/11/18 16:00 11/11/18 16:00 11/11/18 16:00 - Medications Medications: Current Medications Amlodipine Besylate (Norvasc) 10 mg PO DAILY [facility] Last Admin: 11/11/18 11:01 Dose: 10 mg Arformoterol Tartrate (Brovana) 15 mcg IH [id number] [facility] Last Admin: 11/12/18 07:36 Dose: 15 mcg Budesonide (Pulmicort Respules) 0.5 mg IH [id number] [facility] Last Admin: 11/12/18 07:36 Dose: 0.5 mg Furosemide (Lasix) 40 mg PO DAILY [facility] Last Admin: 11/11/18 11:00 Dose: 40 mg Home Med (Home Med) 1 unit INH BID [facility] Last Admin: 11/11/18 17:48 Dose: Not Given Home Med (Home Med) 1 unit INH DAILY PRN PRN Reason: Shortness of Breath Ceftriaxone Sodium (Rocephin 1 Gram Ivpb) 1 gm in 100 mls @ 100 mls/hr IVPB 0600 [facility] Last Admin: 11/12/18 06:00 Dose: 100 mls/hr Levothyroxine Sodium (Synthroid) 50 mcg PO 0600 [facility] Last Admin: 11/12/18 06:00 Dose: 50 mcg Lisinopril (Zestril) 10 mg PO DAILY [facility] Last Admin: 11/11/18 11:01 Dose: 10 mg Loratadine (Claritin) 10 mg PO DAILY [facility] Last Admin: 11/11/18 10:59 Dose: 10 mg Pantoprazole Sodium (Protonix Ec Tab) 40 mg PO 0600 [facility] Last Admin: 11/12/18 06:00 Dose: 40 mg Zolpidem Tartrate (Ambien) 5 mg PO HS PRN; Protocol PRN Reason: Insomnia - Labs Labs: 11/12/18 06:25 11/12/18 06:25 - Additional Findings Additional findings: - Constitutional Appears: Well, No Acute Distress - Head Exam Head Exam: ATRAUMATIC, NORMOCEPHALIC - Eye Exam Eye Exam: Normal appearance - ENT Exam ENT Exam: Mucous Membranes Moist, Normal Exam - Neck Exam Neck Exam: Normal Inspection - Respiratory Exam Respiratory Exam: Clear to Ausculation Bilateral, NORMAL BREATHING PATTERN. absent: Rales, Rhonchi, Wheezes, Respiratory Distress - Cardiovascular Exam Cardiovascular Exam: REGULAR RHYTHM, +S1, +S2 - GI/Abdominal Exam GI & Abdominal Exam: Soft, Normal Bowel Sounds. absent: Distended, Firm, Guarding, Rigid, Tenderness, Organomegaly, Pulsatile Mass, Rebound - Extremities Exam Extremities Exam: 1+ pitting edema bilaterally, mildly improved since yesterday. absent: Joint Swelling, calf tenderness - Back Exam Back Exam: NORMAL INSPECTION - Neurological Exam Neurological Exam: Alert, Awake, Oriented x3 - Psychiatric Exam Psychiatric exam: Normal Affect, Normal Mood - Skin Skin Exam: Dry, Intact, Normal Color, Warm Assessment and Plan - Assessment and Plan (Free Text) Assessment: 1. E.coli bacteremia 2. Ascending cholangitis, resolving, 2/2 e coli and klebsiella 3. UTI 2/2 klebsiella 4. Fatty liver 5. ABILIO, resolved 6. Respiratory failure post ERCP, resolved 7. Hypothyroidism 8. leg edema 9. HTN 10. Hypomagnesemia Will continue with rocephin D9/10-14 per ID. Will continue with brovana pulmicort. Continue with lasix 40 mg PO daily for her leg edema, which is improving. Continue with daily weights. CMP today shows improved Cr 0.8. Magnesi um was low 1.6, which was repleted. Continue with synthroid for hypothyroidism. Continue with lisinopril and norvasc for htn. Protonix for GI prophylaxis, and scds for dvt ppx. Repeat blood and urine cultures have been negative. Patient's scheduled discharge from TCU is on 11/14. Case reviewed and discussed with Dr Webb. <Alen Webb S - Last Filed: 11/12/18 19:38> Objective - Vital Signs/Intake and Output Vital Signs (last 24 hours): Temp Pulse Resp BP Pulse Ox 98.3 F 93 H 20 130/72 98 11/12/18 10:00 11/12/18 10:36 11/12/18 10:00 11/12/18 10:36 11/12/18 10:00 - Medications Medications: Current Medications Amlodipine Besylate (Norvasc) 10 mg PO DAILY [facility] Last Admin: 11/12/18 10:36 Dose: 10 mg Arformoterol Tartrate (Brovana) 15 mcg IH [id number] [facility] Last Admin: 11/12/18 07:36 Dose: 15 mcg Budesonide (Pulmicort Respules) 0.5 mg IH [id number] [facility] Last Admin: 11/12/18 07:36 Dose: 0.5 mg Furosemide (Lasix) 40 mg PO DAILY [facility] Last Admin: 11/12/18 10:35 Dose: 40 mg Home Med (Home Med) 1 unit INH BID [facility] Last Admin: 11/12/18 17:52 Dose: Not Given Home Med (Home Med) 1 unit INH DAILY PRN PRN Reason: Shortness of Breath Ceftriaxone Sodium (Rocephin 1 Gram Ivpb) 1 gm in 100 mls @ 100 mls/hr IVPB 0600 [facility] Last Admin: 11/12/18 06:00 Dose: 100 mls/hr Levothyroxine Sodium (Synthroid) 50 mcg PO 0600 [facility] Last Admin: 11/12/18 06:00 Dose: 50 mcg Lisinopril (Zestril) 10 mg PO DAILY [facility] Last Admin: 11/12/18 10:36 Dose: 10 mg Loratadine (Claritin) 10 mg PO DAILY [facility] Last Admin: 11/12/18 10:34 Dose: 10 mg Pantoprazole Sodium (Protonix Ec Tab) 40 mg PO 0600 [facility] Last Admin: 11/12/18 06:00 Dose: 40 mg Zolpidem Tartrate (Ambien) 5 mg PO [facility]; Protocol - Labs Labs: 11/12/18 06:25 11/12/18 06:25 Assessment and Plan - Assessment and Plan (Free Text) Assessment: Pt seen and examined by me. I have reviewed the note of the healthcare or medical and I agree with it. I have discussed the assessment and plan with the resident. I have reviewed the medications and the last labs.
[2018-11-12] MEDS ORDERED: Magnesium Oxide 400 mg Tab UD PO STA (07:56)
[2018-11-12] MEDS: Home Med 1 UNIT INH SCH ×2 (10:35→17:52)
--- NOTE | 2018-11-12 11:14 | PN ---
DATE: 11/12/2018 SUBJECTIVE: The patient is in bed in no acute distress, nontoxic. No fevers. PHYSICAL EXAMINATION: VITAL SIGNS: Temperature is 97, blood pressure is 112/70, respiratory of 18. HEENT: Unremarkable. NECK: Supple. LUNGS: Have decreased breath sounds. HEART: Normal S1, S2. ABDOMEN: Soft. LABORATORY EXAMINATION: Reveals a white count of 7.9, hemoglobin of 11 and platelets of 275. Chemistries are noted. ASSESSMENT AND PLAN: This is a 78-year-old female who was admitted initially with severe sepsis, Escherichia coli bacteremia, status post endoscopic retrograde cholangiopancreatography, stent placement, common bile duct, coronary artery disease, chronic obstructive lung disease and currently on ceftriaxone. The patient did have Escherichia coli and Klebsiella from the bile culture which is pansensitive. He did have Escherichia coli bacteremia on 11/02/2018. The patient actually had adequate antibiotics, may discontinue antibiotics. Today is day #10 after today's last dose. Dhaval Pérez MD
--- NOTE | 2018-11-13 00:06 | PN ---
DATE: 11/12/2018 The patient was seen and examined. I do agree with the note of the medical insurance clerk. The patient had sepsis secondary to ascending cholangitis from E. coli. The patient had UTI secondary to Klebsiella. She has improvement in her symptoms. The patient has ABILIO that has also improved. The patient's labs were reviewed. She is getting physical therapy. She does have insomnia that she complains about, and she is placed on Ambien for sleep. The patient is on Protonix daily. She is receiving Synthroid for hypothyroidism. She is on lisinopril for hypertension. She is doing well and improving. Alen Webb MD
[2018-11-13] MEDS: Pantoprazole 40 mg EC Tab PO SCH (05:17)
[2018-11-13] MEDS: cefTRIAXone 1 GM/100 ML BAG IVPB SCH (05:17)
[2018-11-13] MEDS: Levothyroxine 50 MCG TAB PO SCH (05:18)
[2018-11-13] MEDS: Budesonide 0.5 mg/2 ml Inhal Susp UD IH SCH ×2 (07:23→19:26)
[2018-11-13] MEDS: Arformoterol 15 mcg/2 ml Inh Sol IH SCH ×2 (07:23→19:26)
--- NOTE | 2018-11-13 10:13 | CP.PCM.PN ---
<Mercy Maldonado - Last Filed: 11/13/18 10:08> Subjective - Date & Time of Evaluation Date of Evaluation: 11/13/18 Time of Evaluation: 10:09 - Subjective Subjective: Mercy Maldonado, PGY2, Medicine Progress Note for Dr Webb: Patient seen and examined at bedside. No acute events overnight. Patient reports feeling well today, states that she slept well. Reports persistent LE swelling. Denies fevers, chills, nausea, vomiting, abdominal pain, urinary symptoms. Objective - Vital Signs/Intake and Output Vital Signs (last 24 hours): Temp Pulse Resp BP Pulse Ox 98.3 F 93 H 20 130/72 98 11/12/18 10:00 11/12/18 10:36 11/12/18 10:00 11/12/18 10:36 11/12/18 10:00 Intake and Output: 11/13/18 11/13/18 06:59 18:59 Intake Total 420 Balance 420 - Medications Medications: Current Medications Amlodipine Besylate (Norvasc) 10 mg PO DAILY [facility] Last Admin: 11/12/18 10:36 Dose: 10 mg Arformoterol Tartrate (Brovana) 15 mcg IH [id number] [facility] Last Admin: 11/13/18 07:23 Dose: 15 mcg Budesonide (Pulmicort Respules) 0.5 mg IH [id number] [facility] Last Admin: 11/13/18 07:23 Dose: 0.5 mg Furosemide (Lasix) 40 mg PO BID [facility] Home Med (Home Med) 1 unit INH BID [facility] Last Admin: 11/12/18 17:52 Dose: Not Given Home Med (Home Med) 1 unit INH DAILY PRN PRN Reason: Shortness of Breath Ceftriaxone Sodium (Rocephin 1 Gram Ivpb) 1 gm in 100 mls @ 100 mls/hr IVPB 0600 [facility] Last Admin: 11/13/18 05:17 Dose: 100 mls/hr Levothyroxine Sodium (Synthroid) 50 mcg PO 0600 [facility] Last Admin: 11/13/18 05:18 Dose: 50 mcg Lisinopril (Zestril) 10 mg PO DAILY [facility] Last Admin: 11/12/18 10:36 Dose: 10 mg Loratadine (Claritin) 10 mg PO DAILY [facility] Last Admin: 11/12/18 10:34 Dose: 10 mg Pantoprazole Sodium (Protonix Ec Tab) 40 mg PO 0600 [facility] Last Admin: 11/13/18 05:17 Dose: 40 mg Zolpidem Tartrate (Ambien) 5 mg PO HS MALI[facility]; Protocol - Labs Labs: 11/12/18 06:25 11/12/18 06:25 - Additional Findings Additional findings: - Constitutional Appears: Well, No Acute Distress - Head Exam Head Exam: ATRAUMATIC, NORMOCEPHALIC - Eye Exam Eye Exam: Normal appearance - ENT Exam ENT Exam: Mucous Membranes Moist, Normal Exam - Neck Exam Neck Exam: Normal Inspection - Respiratory Exam Respiratory Exam: Clear to Ausculation Bilateral, NORMAL BREATHING PATTERN. absent: Rales, Rhonchi, Wheezes, Respiratory Distress - Cardiovascular Exam Cardiovascular Exam: REGULAR RHYTHM, +S1, +S2 - GI/Abdominal Exam GI & Abdominal Exam: Soft, Normal Bowel Sounds. absent: Distended, Firm, Guarding, Rigid, Tenderness, Organomegaly, Pulsatile Mass, Rebound - Extremities Exam Extremities Exam: 1-2+ pitting edema bilaterally, mildly improved since yesterday. absent: Joint Swelling, calf tenderness - Back Exam Back Exam: NORMAL INSPECTION - Neurological Exam Neurological Exam: Alert, Awake, Oriented x3 - Psychiatric Exam Psychiatric exam: Normal Affect, Normal Mood - Skin Skin Exam: Dry, Intact, Normal Color, Warm Assessment and Plan - Assessment and Plan (Free Text) Assessment: 1. E.coli bacteremia 2. Ascending cholangitis, resolving, 2/2 e coli and klebsiella 3. UTI 2/2 klebsiella 4. Fatty liver 5. AIBLIO, resolved 6. Respiratory failure post ERCP, resolved 7. Hypothyroidism 8. leg edema 9. HTN 10. Hypomagnesemia Continue with rocephin Day 10 as per ID. Will continue with broshelley pulmicort. Will increase lasix 40 mg PO to twice daily for her leg edema. Continue with daily weights. Continue with synthroid for hypothyroidism. Continue with lisinopril and norvasc for htn. Protonix for GI prophylaxis. Patient is ambulating well with physical therapy. Repeat blood and urine cultures have been negative. Patient's scheduled discharge from TCU is on 11/14. Case reviewed and discussed with Dr Webb. <Alen Webb - Last Filed: 11/13/18 21:15> Objective - Vital Signs/Intake and Output Vital Signs (last 24 hours): Temp Pulse Resp BP Pulse Ox 97.8 F 91 H 18 110/69 97 11/13/18 16:00 11/13/18 16:39 11/13/18 16:00 11/13/18 17:25 11/13/18 16:39 - Medications Medications: Current Medications Amlodipine Besylate (Norvasc) 10 mg PO DAILY [facility] Last Admin: 11/13/18 11:00 Dose: 10 mg Arformoterol Tartrate (Brovana) 15 mcg IH [id number] [facility] Last Admin: 11/13/18 19:26 Dose: 15 mcg Budesonide (Pulmicort Respules) 0.5 mg IH [id number] [facility] Last Admin: 11/13/18 19:26 Dose: 0.5 mg Furosemide (Lasix) 40 mg PO BID [facility] Last Admin: 11/13/18 17:25 Dose: 40 mg Home Med (Home Med) 1 unit INH BID [facility] Last Admin: 11/13/18 17:25 Dose: Not Given Home Med (Home Med) 1 unit INH DAILY PRN PRN Reason: Shortness of Breath Levothyroxine Sodium (Synthroid) 50 mcg PO 0600 [facility] Last Admin: 11/13/18 05:18 Dose: 50 mcg Lisinopril (Zestril) 10 mg PO DAILY [facility] Last Admin: 11/13/18 11:00 Dose: 10 mg Loratadine (Claritin) 10 mg PO DAILY [facility] Last Admin: 11/13/18 11:00 Dose: 10 mg Pantoprazole Sodium (Protonix Ec Tab) 40 mg PO 0600 [facility] Last Admin: 11/13/18 05:17 Dose: 40 mg Zolpidem Tartrate (Ambien) 5 mg PO HS [facility]; Protocol - Labs Labs: 11/12/18 06:25 11/12/18 06:25 Assessment and Plan - Assessment and Plan (Free Text) Assessment: Pt seen and examined by me. I have reviewed the note of the medical transcription radiology and I agree with it. I have discussed the assessment and plan with the resident. I have reviewed the medications and the last labs.
[2018-11-13] MEDS: Home Med 1 UNIT INH SCH ×2 (11:19→17:25)
--- NOTE | 2018-11-13 16:28 | PN ---
DATE: 11/13/2018 SUBJECTIVE: The patient is seen in bed, no acute distress. PHYSICAL EXAMINATION: VITAL SIGNS: On exam, temperature is 97, blood pressure is 107/60, respiratory 16. HEENT: Examination of HEENT is unremarkable. NECK: Supple. LUNGS: Have decreased breath sounds. HEART: Normal S1, S2. ABDOMEN: Soft. LABORATORY DATA: Laboratory examinations reviewed. The patient's white count is now down to normal at 7.8. ASSESSMENT AND PLAN: A 78-year-old female admitted initially with severe sepsis, Escherichia coliform bacteremia, status post endoscopic retrograde cholangiopancreatography and stent placement in common bile duct, coronary artery disease and chronic obstructive lung disease and had E. coli and Klebsiella from the bile culture and was admitted with E. Coli bacteremia. Has completed 10 days of antibiotics. We will discontinue antibiotics. No further antibiotics necessary. Dhaval Pérez MD
--- NOTE | 2018-11-14 00:27 | PN ---
DATE: 11/13/2018 HOSPITAL COURSE: The patient was seen and examined. I do agree with the note of the medical record assistant. The patient had sepsis secondary to E. coli. She also had a UTI secondary to Klebsiella. Her acute kidney injury has improved. She is currently ambulating well. She denies any pain. I was involved in the plan of care with the resident. The patient is currently on Lasix b.i.d. because of the lower extremity edema that she had. She is on Synthroid for hypothyroidism. She is on Zestril for her hypertension. Her blood pressure is fairly well controlled. I will discontinue the patient's amlodipine as this may be the cause of the lower extremity edema. Alen Webb MD
[2018-11-14] MEDS: Pantoprazole 40 mg EC Tab PO SCH (05:58)
[2018-11-14] MEDS: Levothyroxine 50 MCG TAB PO SCH (05:58)
[2018-11-14] MEDS: Budesonide 0.5 mg/2 ml Inhal Susp UD IH SCH (07:52)
[2018-11-14] MEDS: Arformoterol 15 mcg/2 ml Inh Sol IH SCH (07:52)
[2018-11-14 09:33] VITALS: BP 117/71
[2018-11-14] MEDS: Home Med 1 UNIT INH SCH (09:33)
[2018-11-14 13:52] VITALS: O2SAT 95
[2018-11-14 13:53] VITALS: PULSE 94; RESP 18; TEMP 97.5
--- NOTE | 2018-11-14 14:45 | PN ---
DATE: 11/14/2018 HISTORY OF PRESENT ILLNESS: The patient has no complaints of any chest pain. No shortness of breath. No headaches or dizziness. She has finished her physical therapy and her IV antibiotics. She is going to be discharged home. The patient does have lower extremity edema and has been on diuretic therapy for this. PHYSICAL EXAMINATION: VITAL SIGNS: Temperature is 97.8, pulse of 85, blood pressure 110/69, and respirations 18. GENERAL: The patient is lying in bed, flat, comfortable. HEENT: No oral lesion. Anicteric sclerae. Moist mucosa. NECK: No JVD, adenopathy, or thyromegaly. CARDIOVASCULAR: S1 and S2, regular. No murmurs, rubs, or gallops. LUNGS: Clear to auscultation bilaterally. No wheeze, rales, or rhonchi. ABDOMEN: Bowel sounds are positive, soft, nontender and nondistended. EXTREMITIES: 1+ edema. ASSESSMENT: 1. Lower extremity edema. 2. Sepsis secondary to Escherichia coli, resolved. 3. Urinary tract infection secondary to Klebsiella, resolved. 4. Fatty liver. 5. Acute kidney injury, resolved. 6. Hypothyroidism. 7. Hypertension. PLAN: The patient is going to continue with Synthroid. She is on lisinopril, but I will discontinue this medication at this point. The patient is going to be on Lasix. The patient is on heart healthy diet. Condition is stable. Activity increased as tolerated. Alen Webb MD
--- NOTE | 2018-11-14 23:14 | PN ---
DATE: 11/14/2018 SUBJECTIVE: The patient is seen earlier this morning in the transitional care room . No fevers and no chills. PHYSICAL EXAMINATION: GENERAL: The patient is doing well. VITAL SIGNS: Temperature of 98, blood pressure is 117/70, respiratory rate of 18. HEENT: Unremarkable. NECK: Supple. LUNGS: Decreased breath sounds. HEART: Normal S1, S2. ABDOMEN: Soft, nontender. LABORATORY DATA: Reveals a white count of 7.8, hemoglobin of 11. Chemistry reveals a BUN of 15, creatinine of 0.8. ASSESSMENT AND PLAN: This is a 78-year-old female who was admitted initially with severe sepsis Escherichia coli bacteremia status post endoscopic retrograde cholangiopancreatography, stent placement in common bile duct, coronary artery disease, chronic obstructive lung disease, had Escherichia coli, Klebsiella in bile, and Escherichia coli bacteremia. Completed 10 days of antibiotics. She is off of antibiotics. The patient states she is looking forward being discharged and follow up primary medical doctor. Dhaval Pérez MD
== END 2018-11-14 01:30 | disposition home or self-care (01) | DRG 872 ==
LOC: TRCU 16:41
PROVIDERS: ADMIT Internal Medicine Nephrology; ATTEND Internal Medicine Nephrology
PROC: 3E03329 Introduction of Other Anti-infective into Peripheral Vein, Percutaneous Approach (ICD-10-PCS; 2018-11-06)
PROC: F07L6YZ Therapeutic Exercise Treatment of Musculoskeletal System - Lower Back / Lower Extremity using Other Equipment (ICD-10-PCS; 2018-11-08)
PROC: F07Z9FZ Gait Training/Functional Ambulation Treatment using Assistive, Adaptive, Supportive or Protective Equipment (ICD-10-PCS; principal; 2018-11-09)
PROC: F08Z1FZ Dressing Techniques Treatment using Assistive, Adaptive, Supportive or Protective Equipment (ICD-10-PCS; 2018-11-10)
PROC: F08Z2ZZ Grooming/Personal Hygiene Treatment (ICD-10-PCS; 2018-11-11)
PROC: F07Z8ZZ Transfer Training Treatment (ICD-10-PCS; 2018-11-12)
DX: A41.51 Sepsis due to Escherichia coli [E. coli] (principal); K80.30 Calculus of bile duct with cholangitis, unspecified, without obstruction; N39.0 Urinary tract infection, site not specified; B96.1 Klebsiella pneumoniae [K. pneumoniae] as the cause of diseases classified elsewhere; J43.9 Emphysema, unspecified; E03.9 Hypothyroidism, unspecified; E83.42 Hypomagnesemia; I12.9 Hypertensive chronic kidney disease with stage 1 through stage 4 chronic kidney disease, or unspecified chronic kidney disease; N18.9 Chronic kidney disease, unspecified; E78.5 Hyperlipidemia, unspecified; G47.00 Insomnia, unspecified; I25.10 Atherosclerotic heart disease of native coronary artery without angina pectoris; K76.0 Fatty (change of) liver, not elsewhere classified; K21.9 Gastro-esophageal reflux disease without esophagitis; Z95.5 Presence of coronary angioplasty implant and graft; Z87.891 Personal history of nicotine dependence; Z88.0 Allergy status to penicillin

== ENCOUNTER 2019-01-17 11:09 | Inpatient (IN) | payer MEDICARE, BC ==
--- NOTE | 2019-01-17 11:48 | ED PDOC ---
Arrival/HPI - General Historian: Patient, Family - History of Present Illness Narrative History of Present Illness (Text): 01/17/19 11:45 Pt is a 78yo female with a PMH COPD and dementia who was found down after a syncopal episode/ fall by her niece this morning. The pt has no recollection of this event and no complaints at this time. Pt and family are unsure if she hit her head during the fall. Pt is unsure if she experienced a LOC episode. Denies chest pain, SOB, weakness or visual changes. Time/Duration: 4-6 hours Symptom Onset: Sudden Symptom Course: Unchanged Severity Level: 8 Context: Walking <Tomer Yanes - Last Filed: 01/17/19 13:58> <Victor Manuel Oswald - Last Filed: 01/17/19 14:17> - General Chief Complaint: Trauma Time Seen by Provider: 01/17/19 11:10 Past Medical History - Provider Review Nursing Documentation Reviewed: Yes - Infectious Disease Hx of Infectious Diseases: None - Tetanus Immunization Tetanus Immunization: Unknown - Cardiac Hx Cardiac Disorders: Yes Hx Hypertension: Yes - Pulmonary Hx Chronic Obstructive Pulmonary Disease (COPD): Yes - Neurological Hx Neurological Disorder: No - HEENT Hx HEENT Disorder: No Hx Blind: No Hx Cataracts: No Hx Deafness: No Hx Difficulty Chewing: No Hx Epistaxis: No Hx Glaucoma: No Hx Macular Degeneration: No - Renal Hx Renal Failure: No - Endocrine/Metabolic Hx Hypothyroidism: Yes - Hematological/Oncological Hx Blood Disorders: No Hx AIDS: No Hx Anemia: No Hx Chemotherapy: No Hx Cirrhosis: No Hx Hepatitis A: No Hx Hepatitis B: No Hx Hepatitis C: No Hx Metastasis: No Hx Shingles: No Hx Unexplained Bleeding: No - Integumentary Hx Dermatological Disorder: No Hx Basal Cell Carcinoma: No Hx Eczema: No Hx Melanoma: No Hx Psoriasis: No Hx Squamous Cell Carcinoma: No - Musculoskeletal/Rheumatological Hx Falls: No - Gastrointestinal Hx Gastrointestinal Disorders: (choledocholithiasis) - Genitourinary/Gynecological Hx Genitourinary Disorders: (hx of urinary bladder polyp) Hx Reproductive Disorders: No - Psychiatric Hx Psychophysiologic Disorder: No Hx Emotional Abuse: No Hx Physical Abuse: No Hx Substance Use: No - Surgical History Hx Cholecystectomy: Yes - Anesthesia Hx Anesthesia Reactions: No Hx Malignant Hyperthermia: No - Suicidal Assessment Feels Threatened In Home Enviroment: No <JoaquínTomer Raymond - Last Filed: 01/17/19 13:58> Family/Social History - Physician Review Nursing Documentation Reviewed: Yes Family/Social History: No Known Family HX Smoking Status: Former Smoker Hx Alcohol Use: No Hx Substance Use: No Hx Substance Use Treatment: No <JoaquínTomer Raymond - Last Filed: 01/17/19 13:58> Family/Social History: No Known Family HX <Victor Manuel Oswald - Last Filed: 01/17/19 14:17> Allergies/Home Meds <JoaquínTomer Raymond - Last Filed: 01/17/19 13:58> <Victor Manuel Oswald - Last Filed: 01/17/19 14:17> Allergies/Adverse Reactions: Allergies Penicillins Allergy (Verified 01/17/19 11:13) SWELLING Home Medications: Home Meds Medication Instructions Recorded Confirmed Levothyroxine Sodium [Levothroid] 0.05 mg PO DAILY 09/30/13 11/06/18 Tiotropium [Spiriva] 18 mcg IH DAILY 09/30/13 11/06/18 Fluticasone/Salmeterol 100/50 1 puff IH Q12 PRN 07/02/16 11/06/18 [Advair Diskus 100/50] Omega3/Dha/Epa/Fish Oil/Vit D3 1 each PO DAILY 07/02/16 11/06/18 [Fish Oil + Vitamin D-3 Softgel] Advanced Multi Ea Chew Tablet 1 tab PO DAILY 11/02/18 11/06/18 Aricept 5 mg PO DAILY 11/02/18 11/06/18 Incruse Ellipta 1 inh INH PRN PRN 11/02/18 11/06/18 Pepcid 20 mg PO DAILY 11/02/18 11/06/18 Umeclidinium [place] [Incruse 1 inh INH PRN PRN 11/02/18 11/06/18 Ellipta] Review of Systems - Physician Review All systems were reviewed & negative as marked: Yes - Review of Systems Constitutional: Normal Eyes: Normal ENT: Normal Respiratory: Normal Cardiovascular: Normal Gastrointestinal: Normal Genitourinary Female: Normal Musculoskeletal: Normal Skin: Normal Neurological: Other (no memory of event ) Endocrine: Normal Hemo/Lymphatic: Normal Psychiatric: Normal <JoaquínTomer - Last Filed: 01/17/19 13:58> Physical Exam - Physical Exam Physical Exam Limitations: Altered Mental Status Vital Signs Temp Pulse Resp BP Pulse Ox 01/17/19 11:10 97.7 F 102 H 20 132/88 98 Temperature: Afebrile Blood Pressure: Normal Pulse: Regular Respiratory Rate: Normal Appearance: Positive for: Well-Appearing Mental Status: Positive for: Alert and Oriented X 3 - Systems Exam Head: Present: Atraumatic, Normocephalic Pupils: Present: PERRL Extroacular Muscles: Present: EOMI Conjunctiva: Present: Normal Mouth: Present: Moist Mucous Membranes Neck: Present: Normal Range of Motion Respiratory/Chest: Present: Clear to Auscultation, Good Air Exchange. No: Respiratory Distress, Accessory Muscle Use Cardiovascular: Present: Regular Rate and Rhythm, Normal S1, S2. No: Murmurs Abdomen: No: Tenderness, Distention Upper Extremity: Present: Normal Inspection Lower Extremity: Present: Normal Inspection Neurological: Present: GCS=15, CN II-XII Intact Skin: Present: Warm, Dry, Normal Color <Tomer Yanes - Last Filed: 01/17/19 13:58> Vital Signs Temp Pulse Resp BP Pulse Ox 01/17/19 11:10 97.7 F 102 H 20 132/88 98 <Victor Manuel Oswald - Last Filed: 01/17/19 14:17> Medical Decision Making ED Course and Treatment: 01/17/19 11:51 CBC CMP Troponin rectal temp straight urinary cath, UA EKG CT head non contrast 01/17/19 13:56 Pt to be admitted Pt seen, examined, assessment, and plan discussed with Dr Margret Yanes PGY1 - Lab Interpretations I have reviewed the lab results: Yes - RAD Interpretation Radiology Orders: 01/17/19 11:31 HEAD W/O CONTRAST [CT] Stat 01/17/19 11:35 CXR [CHEST PORTABLE] [RAD] Stat - EKG Interpretation Interpreted by ED Physician: Yes Type: 12 lead EKG <Tomer Yanes - Last Filed: 01/17/19 13:58> ED Course and Treatment: 01/17/19 12:36 Seen and examined with the resident. Our history and physical exam reveals an elderly woman who had a fall this morning and a probable syncopal episode. The niece reports that she is more confused than usual. There was no apparent injury or trauma. 01/17/19 12:38 EKG shows normal sinus rhythm rate approximately 95 with PACs and no acute ST or T wave changes. 01/17/19 13:[address] Webb, who will place on telemetry observation. - RAD Interpretation Radiology Orders: 01/17/19 11:31 HEAD W/O CONTRAST [CT] Stat 01/17/19 11:35 CXR [CHEST PORTABLE] [RAD] Stat X-ray chest one view as read by the radiologist shows no infiltrate effusion or cardiomegaly. CT scan of the head is read by the radiologist shows atrophy otherwise unremarkable. Senior Product Engineer: Radiologist <Victor Manuel Oswald - Last Filed: 01/17/19 14:17> Disposition/Present on Arrival - Present on Arrival Any Indicators Present on Arrival: No History of DVT/PE: No History of Uncontrolled Diabetes: No Urinary Catheter: No History of Decub. Ulcer: No History Surgical Site Infection Following: None - Disposition Have Diagnosis and Disposition been Completed?: Yes <Tomer Yanes - Last Filed: 01/17/19 13:58> - Present on Arrival Any Indicators Present on Arrival: No History of DVT/PE: No History of Uncontrolled Diabetes: No Urinary Catheter: No History of Decub. Ulcer: No - Disposition Have Diagnosis and Disposition been Completed?: Yes Disposition Time: 13:21 Patient Plan: Observation, Telemetry <Victor Manuel Oswald - Last Filed: 01/17/19 14:17> - Disposition Diagnosis: Syncope Disposition: HOSPITALIZED Patient Problems: Current Active Problems Problem Status Onset Syncope Acute Condition: FAIR
--- NOTE | 2019-01-17 12:01 | RAD ---
Date of service: 01/17/2019 HISTORY: Syncope COMPARISON: 11/04/2018. FINDINGS: LUNGS: The lungs are hyperinflated and there is peribronchial thickening with chronic changes in both lungs. No focal consolidation. PLEURA: No pleural effusions or pneumothorax. CARDIOVASCULAR: The heart is normal in size. There are aortic atherosclerotic calcifications present. OSSEOUS STRUCTURES: Within normal limits for the patient's age. VISUALIZED UPPER ABDOMEN: Normal. OTHER FINDINGS: None. IMPRESSION: No active pulmonary disease. COPD.
[2019-01-17 12:20] LABS: BASO # 0.03 K/mm3 (0.0-2.0); BASO % 0.2 % (0.0-3.0); HEMOGLOBIN 13.9 g/dL (12.0-16.0); LYMPH # 1.5 (1.2-3.4); LYMPH % 10.5 % (22.0-35.0); MEAN CELL VOLUME 94.1 fl (80.0-105.0); MEAN CORPUSCULAR HEMOGLOBIN 32.7 pg (25.0-35.0); MEAN CORPUSCULAR HGB CONC 34.8 g/dl (31.0-37.0); MEAN PLATELET VOLUME 11.1 fl (7.0-11.0); MONO # 1.1 (0.1-0.6); MONO % 7.4 % (1.0-6.0); RBC 4.25 10^6/uL (3.5-6.1); WHITE BLOOD COUNT 14.6 10^3/uL (4.5-11.0)
--- NOTE | 2019-01-17 13:09 | CT ---
Date of service: 01/17/2019 PROCEDURE: CT HEAD WITHOUT CONTRAST. HISTORY: syncope COMPARISON: 10/29/2016. TECHNIQUE: Axial computed tomography images were obtained through the head/brain without intravenous contrast. Radiation dose: Total exam DLP = 802.27 mGy-cm. This CT exam was performed using one or more of the following dose reduction techniques: Automated exposure control, adjustment of the mA and/or kV according to patient size, and/or use of iterative reconstruction technique. FINDINGS: HEMORRHAGE: No intracranial hemorrhage. BRAIN: There are mild chronic microangiopathic changes. There is no mass, mass effect or abnormal extra-axial fluid collection. 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 The midline sagittal structures are normal.There are coarse atherosclerotic calcifications in the cavernous carotid arteries. VENTRICLES: There is moderate age-related global parenchymal volume loss and proportionate enlargement of the ventricles and cortical sulci. CALVARIUM: There is no calvarial fracture or extracranial soft tissue swelling. PARANASAL SINUSES: There is moderate chronic mucoperiosteal thickening in the ethmoid air cells. The remaining included paranasal sinuses are clear. MASTOID AIR CELLS: Predominantly clear. OTHER FINDINGS: None. IMPRESSION: No acute intracranial abnormality. Mild chronic microangiopathic changes and moderate age-related global parenchymal volume loss.
[2019-01-17 13:12] LABS: ALB/GLOB RATIO 1.1 (1.1-1.8); ALBUMIN 3.9 g/dL (3.0-4.8); ALT/SGPT 47 U/L (7-56); AST/SGOT 98 U/L (14-36); BLOOD UREA NITROGEN 23 mg/dL (7-21); CALCIUM 9.4 mg/dL (8.4-10.5); GFR NON-AFRICAN AMERICAN > 60
[2019-01-17 13:15] LABS: URINE BILIRUBIN NEGATIVE (NEGATIVE); URINE BLOOD NEGATIVE (NEGATIVE); URINE GLUCOSE (UA) NEGATIVE (NEGATIVE); URINE LEUKOCYTE ESTERASE NEGATIVE Leu/uL (NEGATIVE); URINE PROTEIN 100 mg/dL (<30 mg/dL); URINE UROBILINOGEN 0.2 E.U./dL (<1 E.U./dL)
[2019-01-17 13:19] LABS: URINE APPEARANCE CLEAR (CLEAR); URINE COLOR YELLOW (YELLOW)
[2019-01-17 13:37] LABS: URINE BACTERIA SMALL /hpf; URINE EPITHELIAL CELLS 0 - 2 /hpf (0-5); URINE RBC 0 - 2 /hpf (0-2); URINE WBC 0 - 2 /hpf (0-6)
[2019-01-17] MEDS ORDERED: Albuterol-Ipratrop 3 mg / 0.5 (3 ml) UD IH STA (18:36)
[2019-01-17] MEDS ORDERED: Fluticasone-Salmeterol 100-50mcg Diskus IH PRN (18:58)
[2019-01-17 19:39] VITALS: BMI 25.0
[2019-01-17] MEDS ORDERED: Pneumococcal 23-Valent Vaccine IM ONE (19:39)
--- NOTE | 2019-01-18 05:39 | CARD ---
APPROVED REPORT Date of service: 01/17/2019 EKG Measurement Heart [id number] <Conclusion> Sinus rhythm with premature atrial complexes Otherwise normal ECG
[2019-01-18 07:47] LABS: RBC 4.12 10^6/uL (3.5-6.1); WHITE BLOOD COUNT 11.5 10^3/uL (4.5-11.0)
[2019-01-18 07:48] LABS: HEMOGLOBIN 13.1 g/dL (12.0-16.0); MEAN CELL VOLUME 95.4 fl (80.0-105.0); MEAN CORPUSCULAR HEMOGLOBIN 31.8 pg (25.0-35.0); MEAN CORPUSCULAR HGB CONC 33.3 g/dl (31.0-37.0); MEAN PLATELET VOLUME 11.1 fl (7.0-11.0); RED CELL DISTRIBUTION WIDTH 14.5 % (11.5-14.5)
[2019-01-18 08:08] LABS: ALBUMIN 3.9 g/dL (3.0-4.8); ALT/SGPT 39 U/L (7-56); AST/SGOT 98 U/L (14-36); BLOOD UREA NITROGEN 29 mg/dL (7-21); CALCIUM 9.3 mg/dL (8.4-10.5); GFR NON-AFRICAN AMERICAN > 60
[2019-01-18 08:17] LABS: TROPONIN I 0.04 ng/mL
[2019-01-18] MEDS: Arformoterol 15 mcg/2 ml Inh Sol IH SCH ×3 (08:53→21:09)
[2019-01-18] MEDS: Budesonide 0.25 mg/2 ml Inhal Susp UD IH SCH ×3 (08:54→21:09)
[2019-01-18] MEDS: Albuterol-Ipratrop 3 mg / 0.5 (3 ml) UD IH PRN ×2 (08:54→11:31)
[2019-01-18] MEDS ORDERED: Levothyroxine 50 MCG TAB PO SCH (10:00)
[2019-01-18] MEDS: Tiotropium 18 mcg Cap For Inhalation IH SCH (10:23)
--- NOTE | 2019-01-18 20:09 | HP ---
DATE OF EXAM: 01/18/2019 HISTORY OF PRESENT ILLNESS: The patient has no complaint of any chest pain or shortness of breath. No headaches or dizziness. She is a 78-year-old, who came into the hospital with syncopal episode that she was found by the niece. The patient does not remember the episode. She is not sure if she lost consciousness. She does not know if she hit her head, but she does not complain of any headaches or any shoulder pain or back pain. She has no abdominal pain. No dysuria or frequency. No nocturia. No weakness in the arms or the legs. No dysarthria or dysphagia. All other review of symptoms are within normal limits except as mentioned. ALLERGIES: PENICILLIN. SHE HAS TOLERATED ROCEPHIN. PAST SURGICAL HISTORY: Cholecystectomy. PAST MEDICAL HISTORY: Hypothyroidism, COPD, GERD, common bile duct stone. FAMILY HISTORY: Noncontributory. SOCIAL HISTORY: She was a smoker, but quit. She denies alcohol or drugs. PHYSICAL EXAMINATION: VITAL SIGNS: Temperature is 97.6, pulse of 88, blood pressure 132/82, respirations 20, O2 saturation 99%. Height is 5 feet 7 inches, weight is 160 pounds. BMI is 25.1. GENERAL: The patient is lying in bed, comfortable, and in no acute distress. HEENT: Atraumatic and normocephalic. Anicteric sclerae. Moist mucosa. [place] conjunctivae. No oral lesions. NECK: No JVD, anterior and posterior adenopathy, thyromegaly, or bruits. CARDIOVASCULAR: S1 and S2 regular. No murmurs, rubs or gallops. LUNGS: Clear to auscultation bilaterally. No wheezes, rales, or rhonchi. ABDOMEN: Bowel sounds are positive. Soft, nontender and nondistended. No hepatosplenomegaly. No rebound and no guarding. EXTREMITIES: No cyanosis, clubbing, or edema. NEUROLOGIC: No facial asymmetry. Tongue is midline. No uvula deviation. Power is 5/5 upper extremities and lower extremities. Sensation intact in upper extremities and lower extremities. PSYCHIATRIC: She is awake, alert and oriented x3. No anxiety or depression. She has normal affect. GENITOURINARY: No CVA tenderness. VASCULAR: 2+ pulses in the carotid pulses and pedal pulses. SKIN: No erythema or nodules. SPINE: Shows normal curvature. LABORATORY DATA: The patient has a white count of 14.6, hemoglobin 13.9, platelet count is 253. Repeat white count is 11.5. The patient's troponin is 0.1, repeat is 0.04, potassium is 4.1, TSH is 0.2. The patient's urine shows proteins are 100, glucose is negative, ketones of 15. An EKG showed sinus rhythm with PACs. There is a QTc that is 485. The heart rate is 95. CT of the head done shows no acute intracranial abnormality. There are mild chronic microangiopathic changes that are age-related. Chest x-ray done shows no active disease. There are signs of COPD. ASSESSMENT: 1. Syncope. 2. Hypothyroidism. 3. Chronic obstructive pulmonary disease. 4. Gastroesophageal reflux disease. PLAN: The patient is going to be admitted to the hospital. She has blood cultures that have been done. Urine cultures are still not taken, I will order urine cultures again. The patient is on Aricept for dementia, is on arformoterol 15 mcg every 12 hours for her COPD. She is on nebulizer treatments as needed. She is on Lasix twice a day. The patient is going to continue with Synthroid for hypothyroidism. She is on Tylenol. She is going to be evaluated by Dr. Quinn for her syncope. She also needs Cardiology evaluation. Alen Webb MD
[2019-01-19] MEDS: Budesonide 0.25 mg/2 ml Inhal Susp UD IH SCH ×2 (08:38→19:26)
[2019-01-19] MEDS: Arformoterol 15 mcg/2 ml Inh Sol IH SCH ×2 (08:39→19:27)
[2019-01-19] MEDS: Tiotropium 18 mcg Cap For Inhalation IH SCH (09:43)
--- NOTE | 2019-01-19 11:11 | CON ---
DATE OF CONSULTATION: 01/19/2019 REQUESTING PHYSICIAN: Dr. Webb. REASON FOR CONSULTATION: Syncope. HISTORY: This is a 78-year-old woman with a history of COPD, hypothyroidism, and gastroesophageal reflux disease, who was brought to the emergency room after being found by her niece. She apparently had lost consciousness, but she does not recall any details. There was no evidence of self injury. The patient cannot recall any details of the event. She has had no prior history of syncope. She denies any prior cardiac issues either. She is not hypertensive or diabetic. She was a smoker, quit many years ago. She believes her cholesterol is normal. There is no family history of premature heart disease. PAST MEDICAL HISTORY: Notable for prior cholecystectomy, cholelithiasis, COPD, reflux, and hypothyroidism. ALLERGIES: SHE HAS HAD A REACTION TO PENICILLIN IN THE PAST. MEDICATIONS: Medications at home included Advair, Aricept, Claritin, Incruse Ellipta, Levothroid, Pepcid, ProAir, Spiriva, Brovana, Pulmicort, and Protonix. SOCIAL HISTORY: She quit smoking many years ago. She denies alcohol use. FAMILY HISTORY: Both parents are from unknown cause, and there is no known family history of premature heart disease. REVIEW OF SYSTEMS: A 12-point review of systems is notable for occasional memory issues. She denies any PND or orthopnea. She has had no chest pain. She is unaware of any palpitations. PHYSICAL EXAMINATION: GENERAL: She is a healthy-appearing elderly woman. VITAL SIGNS: Her blood pressure is 140/76 with a pulse of 84 and sinus, respirations are 14. She is afebrile. HEENT: Head normocephalic, atraumatic. NECK: Supple. No JVD noted. CHEST: Clear to auscultation and percussion. HEART: PMI in normal position. A soft systolic murmur is present at the lower left sternal border. ABDOMEN: Soft and nontender with normoactive bowel sounds. EXTREMITIES: No clubbing, cyanosis, or edema. SKIN: Warm and dry. PSYCHIATRIC: Normal mood and affect. NEUROLOGIC: Alert and oriented x3. No gross motor or sensory deficits notable. DIAGNOSTIC DATA: White count 11.5, hemoglobin and hematocrit are 13.1 and 39.3 with a platelet count of 230,000, potassium 4.1. BUN and Creatinine of 29 and 0.9. TSH 0.2. Two sets of cardiac enzymes are negative. Electrocardiogram revealed sinus rhythm with supraventricular premature beats, is otherwise unremarkable. Chest x-ray reveals normal cardiac silhouette. Lung lee appear clear. IMPRESSION: 1. Apparent syncope, details and etiology unclear. She does have a soft systolic murmur on this physical examination, but this does not appear consistent with aortic stenosis or any other significant cardiac pathology. Thus far, no significant dysrhythmias have been documented and electrocardiogram appears normal. 2. Rest of problems as noted. RECOMMENDATIONS: From a cardiac standpoint, she appears stable for discharge at this time unless further neurologic workup is planned. An echocardiogram will be ordered prior to discharge. At this time, I would not pursue a more aggressive workup than the above. However, if she has recurrent symptoms, further evaluation would be necessary. Thank you for this consultation. We will be happy to see as needed. Juliano Echeverria MD
--- NOTE | 2019-01-19 12:49 | CARD ---
APPROVED REPORT Date of service: 01/19/2019 EXAM: Two-dimensional and M-mode echocardiogram with Doppler and color Doppler. INDICATION Syncope 2D DIMENSIONS Left Atrium (2D)3.8 (1.6-4.0cm)IVSd1.2 (0.7-1.1cm) LVDd4.4 (3.9-5.9cm)PWd1.0 (0.7-1.1cm) LVDs3.0 (2.5-4.0cm)FS (%) 33.3 % LVEF (%)62.2 (>50%) M-Mode DIMENSIONS Aortic Root2.70 (2.2-3.7cm)Aortic Cusp Exc.0.80 (1.5-2.0cm) Aortic Valve AoV Peak Bzjeiwsm780.0cm/Christianne Peak GR.20mmHg Mitral Valve MV E Lkilyckz61.5cm/sMV A Ccuredgk373.0cm/sE/A ratio0.5 TDI E/Lateral E'0.0E/Medial E'0.0 Tricuspid Valve TR Peak [id number]/sRAP [id number] Peak Gr.27mmHg [id number] LEFT VENTRICLE The left ventricle is normal size. There is mild concentric left ventricular hypertrophy. The left ventricular function is normal. The left ventricular ejection fraction is within the normal range. There is normal LV segmental wall motion. RIGHT VENTRICLE The right ventricle is normal size. The right ventricular systolic function is normal. ATRIA The left atrium size is normal. The right atrium size is normal. The interatrial septum is intact with no evidence for an atrial septal defect. AORTIC VALVE The aortic valve is moderately calcified. No aortic regurgitation is present. There is mild to moderate valvular aortic stenosis. MITRAL VALVE Mitral annular calcification is moderate. Mitral regurgitation is mild. TRICUSPID VALVE The tricuspid valve is normal in structure. There is mild tricuspid regurgitation. PULMONIC VALVE The pulmonary valve is normal in structure. GREAT VESSELS The aortic root is normal in size. The IVC is normal in size and collapses >50% with inspiration. PERICARDIAL EFFUSION There is no pleural effusion. There is no pericardial effusion. <Conclusion> Normal chamber size. Mild concentric LVH. Normal LV systolic function. Mild to moderate . Mild MR. Mild TR.
--- NOTE | 2019-01-19 12:50 | CP.PCM.PN ---
<José Miguel Jalloh - Last Filed: 01/19/19 13:45> Subjective - Date & Time of Evaluation Date of Evaluation: 01/19/19 Time of Evaluation: 08:00 - Subjective Subjective: José Miguel Jalloh D.O. PGY-3, Internal Medicine Resident, Dr. Webb's Service, Progress Note 78-year-old female with a past medical history of COPD, dementia, hypothyroidism, GERD, and choledocholithiasis who was found down by her niece at home. Patient was seen and examined at bedside. Patient cannot recall any of the events prior to the fall. Denies having issues like this before. No dizziness upon standing. Not sure if she lost consciousness. No dizziness with micturition or defecation in the past. Objective - Vital Signs/Intake and Output Vital Signs (last 24 hours): Temp Pulse Resp BP Pulse Ox 97.3 F L 97 H 20 148/77 100 01/19/19 06:00 01/19/19 10:00 01/19/19 06:00 01/19/19 09:43 01/19/19 06:00 Intake and Output: 01/19/19 01/19/19 06:59 18:59 Intake Total 1500 Output Total 2 Balance 1498 - Medications Medications: Current Medications Acetaminophen (Tylenol 325mg Tab) 650 mg PO Q6H PRN PRN Reason: Pain, moderate (4-7) Last Admin: 01/18/19 06:14 Dose: 650 mg Albuterol/Ipratropium (Duoneb 3 Mg/0.5 Mg (3 Ml) Ud) 3 ml IH [id number] PRN PRN Reason: Shortness of Breath Last Admin: 01/18/19 11:31 Dose: 3 ml Arformoterol Tartrate (Brovana) 15 mcg IH [id number] MALIHA Last Admin: 01/19/19 08:39 Dose: 15 mcg Budesonide (Pulmicort Respules) 0.25 mg IH [id number] MALIHA Last Admin: 01/19/19 08:38 Dose: 0.25 mg Donepezil HCl (Aricept) 5 mg PO HS MALIHA Last Admin: 01/18/19 21:40 Dose: 5 mg Furosemide (Lasix) 40 mg PO BID MALIHA Last Admin: 01/19/19 09:43 Dose: 40 mg Tiotropium [place] (Spiriva) 18 mcg IH DAILY [facility] Last Admin: 01/19/19 09:43 Dose: 18 mcg - Labs Labs: 01/18/19 07:00 01/18/19 07:00 - Constitutional Appears: Non-toxic, No Acute Distress - Head Exam Head Exam: ATRAUMATIC, NORMOCEPHALIC - Eye Exam Eye Exam: EOMI. absent: Scleral icterus - ENT Exam ENT Exam: Mucous Membranes Moist, Normal Oropharynx - Neck Exam Neck Exam: Normal Inspection - Respiratory Exam Respiratory Exam: Clear to Ausculation Bilateral. absent: Rhonchi, Wheezes - Cardiovascular Exam Cardiovascular Exam: RRR, +S1, +S2 - GI/Abdominal Exam GI & Abdominal Exam: Soft, Normal Bowel Sounds. absent: Tenderness - Extremities Exam Extremities Exam: Normal Capillary Refill. absent: Calf Tenderness - Neurological Exam Neurological Exam: Alert, Awake. absent: Oriented x3 (only to person and place, thinks its 1990s) - Skin Skin Exam: Dry, Warm Assessment and Plan - Assessment and Plan (Free Text) Assessment: 78-year-old female with a past medical history of COPD, dementia, hypothyroidism, GERD, and choledocholithiasis who was found down by her niece at home. Plan: 1. Syncope 2. COPD 3. Dementia 4. GERD 5. SIRS 2/4 with leukocytosis and tachycardia Etiology of syncope unclear at this time. Cardiology consultation reviewed and appreciated. Echo and carotid artery ultrasound have been ordered. Echo shows normal ejection fraction with mild concentric LVH. Carotid artery ultrasound has been performed is pending official read. Orthostatic vital signs ordered. Although she had leukocytosis on admission this has resolved she at this time does not show any signs of infection. Urine does not show infection. CXR negative for consolidations. Patient is nontoxic. Will hold off antibiotics at this time. Patient is breathing comfortably and we will continue with Brovana, Pulmicort, Spiriva and as needed nebulizer treatments. PT recommending COURTNEY. Will speak with CM. Patient was seen and examined and case discussed with attending physician. <Alen Webb - Last Filed: 01/19/19 15:35> Objective - Vital Signs/Intake and Output Vital Signs (last 24 hours): Temp Pulse Resp BP Pulse Ox 97.3 F L 97 H 20 148/77 100 01/19/19 06:00 01/19/19 10:00 01/19/19 06:00 01/19/19 09:43 01/19/19 06:00 Intake and Output: 01/19/19 01/19/19 06:59 18:59 Intake Total 1500 Output Total 2 Balance 1498 - Medications Medications: Current Medications Acetaminophen (Tylenol 325mg Tab) 650 mg PO Q6H PRN PRN Reason: Pain, moderate (4-7) Last Admin: 01/18/19 06:14 Dose: 650 mg Albuterol/Ipratropium (Duoneb 3 Mg/0.5 Mg (3 Ml) Ud) 3 ml IH [id number] PRN PRN Reason: Shortness of Breath Last Admin: 01/18/19 11:31 Dose: 3 ml Arformoterol Tartrate (Brovana) 15 mcg IH [id number] [facility] Last Admin: 01/19/19 08:39 Dose: 15 mcg Budesonide (Pulmicort Respules) 0.25 mg IH [id number] [facility] Last Admin: 01/19/19 08:38 Dose: 0.25 mg Donepezil HCl (Aricept) 5 mg PO HS [facility] Last Admin: 01/18/19 21:40 Dose: 5 mg Furosemide (Lasix) 40 mg PO BID [facility] Last Admin: 01/19/19 09:43 Dose: 40 mg Tiotropium [place] (Spiriva) 18 mcg IH DAILY [facility] Last Admin: 01/19/19 09:43 Dose: 18 mcg - Labs Labs: 01/18/19 07:00 01/18/19 07:00 Assessment and Plan - Assessment and Plan (Free Text) Plan: Pt seen and examined by me. I have reviewed the note of the medical legal investigator and I agree with it. I have discussed the assessment and plan with the resident. I have reviewed the medications and the last labs.
--- NOTE | 2019-01-19 13:58 | CON ---
DATE: 01/19/2019 NEUROLOGY CONSULT CHIEF COMPLAINT: Syncope. HISTORY OF PRESENT ILLNESS: This is a 78-year-old woman with history of COPD, hypothyroidism, gastroesophageal reflux disease, who was brought into the hospital when she was found by her niece. She apparently had questionable loss of consciousness, but she does not recall any details. She thinks she tripped, but is not sure if she can recall any of the event. She has no prior history of syncope. She is not on any hypertensives and is not diabetic. She was a smoker, but quit many years ago. Currently, no focal weakness of the extremities, she getting respiratory treatments. Blood pressure seems intact. CAT scan of the head shows no acute intracranial abnormalities. No history of any seizures in the past. No history of any traumatic brain injury. No febrile seizures. PAST MEDICAL HISTORY: As above. ALLERGIES: ALLERGIC TO PENICILLIN. MEDICATIONS: Reviewed by nurses' reconciliation sheet. SOCIAL HISTORY: No illicit drug use, smoking, or EtOH abuse. FAMILY HISTORY: Noncontributory. REVIEW OF SYSTEMS: A 14-point review of systems is negative except as per the HPI. LABORATORY DATA: Sodium is 137, potassium 4.1, chloride 104, carbon dioxide 19, BUN of 29, creatinine 0.9, and random glucose 109. PHYSICAL EXAMINATION: GENERAL: The patient is sitting up in bed, in no acute distress. VITAL SIGNS: Temperature 97.3, pulse rate of 84, blood pressure 148/77, respiratory rate 20, and oxygen saturation 100% on room air. HEENT: Atraumatic and normocephalic. PERRLA. Extraocular muscles intact. NECK: Supple. No JVD. No adenopathy noted. LUNGS: Clear to auscultation. No adventitious sounds. HEART: S1 and S2. Normal rate and rhythm. No murmurs, rubs, or gallops. ABDOMEN: Soft, nontender, and nondistended. Bowel sounds present. EXTREMITIES: No clubbing. No cyanosis. Peripheral pulses 2+ felt bilaterally. NEUROLOGIC: The patient is alert and oriented to person, place, month, and year. Speech is fluent without any errors. Poor attention span, slow thought process. Cranial nerves II through XII are intact. Motor: Moves all extremities equally. No pronator drift seen. Sensory: Light touch, pinprick, proprioception, and vibration are intact. DTRs are 2+ throughout and 1 at both knees and ankles. Coordination: Ibccnj-pl-yhmi intact. No dysmetria noted. IMPRESSION: Syncope, most likely etiology is unclear, could be possible vasovagal based, unlikely seizure. RECOMMENDATIONS: At this time, we would recommend: To follow up as an outpatient for further neurological workup in terms of her transcranial Doppler and we could possibly do an ambulatory EEG as an outpatient. At this time, follow up with Cardiology, otherwise PT/OT to evaluate her gait and she can follow up as an outpatient. Thank you for this consultation. Yoan Quinn MD
--- NOTE | 2019-01-19 14:07 | US ---
PROCEDURE: Bilateral carotid artery duplex ultrasound HISTORY: Carotid stenosis syncope PHYSICIAN(S): Shakeel Mitchell MD. TECHNIQUE: Duplex sonography and color-flow Doppler were used to evaluate the carotid bifurcations and limited segments of the vertebral arteries bilaterally. FINDINGS: There is moderate heterogeneous echogenic plaque noted at the carotid bifurcations bilaterally. The peak systolic velocity in the proximal right internal carotid artery is 129 cm/sec. This corresponds to a 40-59 percent proximal right ICA stenosis. Normal systolic velocities are noted in the proximal right external carotid artery. There is antegrade flow in the dominant right vertebral artery. The peak systolic velocity in the proximal left internal carotid artery is 97 cm/sec. This corresponds to a 20 to 39% proximal left ICA stenosis. Normal systolic velocities are noted in the proximal left external carotid artery. There is antegrade flow in the left vertebral artery. IMPRESSION: 1. 40-59 percent proximal right ICA stenosis 2. 20-39 percent proximal left ICA stenosis 3. Antegrade flow in both vertebral arteries.
--- NOTE | 2019-01-20 01:36 | DS ---
HOSPITAL COURSE: The patient was seen and examined. I do agree with the note of the medical research associate. I was involved in the plan of care. The patient was seen by Dr. Quinn from Neurology. He recommended a carotid Doppler. The patient did not wish to stay in the rehab facility and prefers to go home. The patient may have had a vasovagal episode. I did speak Dr. Echeverria, the Heating And Blending Supervisor regarding the case. No further intervention is going to be needed and carotid Doppler that was done did not show any significant abnormality, there was 40% to 59% proximal right ICA stenosis. The patient had an echo that showed normal chamber size, LV function was normal. There was [id number] . The patient has COPD, and this is currently stable. She is on nebulizers as needed, and she has Spiriva, Pulmicort, and Brovana. She has GERD and she is not symptomatic from this. She is on Aricept for dementia, comfortable as she understands her current workup. She does not wish to stay. She will be discharged home, follow with her primary care doctor in 1 to 2 weeks. Condition is stable. Activity increased as tolerated. The patient also had blood culture that was negative. Alen Webb MD
[2019-01-20 06:29] VITALS: O2SAT 97
[2019-01-20] MEDS: Budesonide 0.25 mg/2 ml Inhal Susp UD IH SCH (07:56)
[2019-01-20] MEDS: Arformoterol 15 mcg/2 ml Inh Sol IH SCH (07:56)
[2019-01-20] MEDS: Tiotropium 18 mcg Cap For Inhalation IH SCH (09:56)
--- NOTE | 2019-01-20 10:30 | CP.PCM.PCO ---
Physician Communication Note - Physician Communication Note Physician Communication Note: discuss plan with pmd and cardiology, adjust lasix to daily - Additional Comments - Additional Comments Additional Comments: added BP med - losartan 25mg daily per discussion with cardiology, discuss with daughter and patient plans for TCU as well. awaiting TCU eval, will follow up and discuss with IDT.
--- NOTE | 2019-01-20 11:24 | CP.PCM.DIS ---
<JallohJosé Miguel - Last Filed: 01/20/19 11:19> Provider - Provider Date of Admission: 01/17/19 19:00 Attending physician: Alen Webb MD Primary care physician: Cory Pratt MD Consults: 01/17/19 18:57 Consult [Physician Consult] Routine Comment: Consulting Provider: Miguelito Quinn Consulting Physician: Miguelito Quinn Reason for Consult: syncope 01/17/19 19:39 Case Management Referral Routine Comment: LIVES ALONE,NEEDS ASSISTANCE AT HOME Physician Instructions: Reason For Exam: EVALUATION Reason for Referral: Optimization Analyst Eval Inpatient [employer] Core Measures Referral Routine Comment: Physician Instructions: Reason For Exam: EVALUATION Nursing Referral for Wound Care Routine Comment: MULTIPLE BRUISING AND RIGHT ELBOW SCABBED AREA-FAL Physician Instructions: Reason For Exam: EVALUATION Transition In Care/Readmission Reduction Routine Comment: Physician Instructions: Reason For Exam: EVALUATION 01/17/19 19:44 Social Work Referral Routine Comment: NEEDS ASSISTANCE ATHOME,LIVES ALONE,FALLS,DEMENTIA Physician Instructions: Reason For Exam: EVALUATION 01/18/19 10:22 Consult [Physician Consult] Routine Comment: Consulting Provider: Juliano Echeverria Consulting Physician: Juliano Echeverria Reason for Consult: syncope 01/20/19 09:24 TCU [Evaluation for TRCU] Routine Comment: Physician Instructions: Reason For Exam: DECONDITIONING Time Spent in preparation of Discharge (in minutes): 40 Diagnosis - Discharge Diagnosis (1) Syncope Status: Acute Hospital Course - Lab Results Lab Results: Micro Results 01/17/19 20:45 Blood-Venous Blood Culture - Preliminary NO GROWTH AFTER 48 HOURS 01/18/19 17:10 Urine,Clean Catch Urine Culture - Final No Growth (<1,000 CFU/ML) Most Recent Lab Values WBC 11.5 10^3/uL (4.5-11.0) H D 01/18/19 07:00 RBC 4.12 10^6/uL (3.5-6.1) 01/18/19 07:00 Hgb 13.1 g/dL (12.0-16.0) 01/18/19 07:00 Hct 39.3 % (36.0-48.0) 01/18/19 07:00 MCV 95.4 fl (80.0-105.0) 01/18/19 07:00 MCH 31.8 pg (25.0-35.0) 01/18/19 07:00 MCHC 33.3 g/dl (31.0-37.0) 01/18/19 07:00 RDW 14.5 % (11.5-14.5) 01/18/19 07:00 Plt Count 230 10^3/uL (120.0-450.0) 01/18/19 07:00 MPV 11.1 fl (7.0-11.0) H 01/18/19 07:00 Neut % (Auto) 81.9 % (50.0-68.0) H 01/17/19 11:55 Lymph % (Auto) 10.5 % (22.0-35.0) L 01/17/19 11:55 Marshall % (Auto) 7.4 % (1.0-6.0) H 01/17/19 11:55 Eos % (Auto) 0.0 % (1.5-5.0) L 01/17/19 11:55 Baso % (Auto) 0.2 % (0.0-3.0) 01/17/19 11:55 Lymph # (Auto) 1.5 (1.2-3.4) 01/17/19 11:55 Marshall # (Auto) 1.1 (0.1-0.6) H 01/17/19 11:55 Eos # (Auto) 0.0 (0.0-0.7) 01/17/19 11:55 Baso # (Auto) 0.03 K/mm3 (0.0-2.0) 01/17/19 11:55 Absolute Neuts (auto) 11.92 (1.4-6.5) H 01/17/19 11:55 Sodium 137 mmol/L (132-148) 01/18/19 07:00 Potassium 4.1 mmol/L (3.6-5.0) 01/18/19 07:00 Chloride 104 mmol/L (98-107) 01/18/19 07:00 Carbon Dioxide 19 mmol/L (21-33) L 01/18/19 07:00 Anion Gap 18 (10-20) 01/18/19 07:00 BUN 29 mg/dL (7-21) H 01/18/19 07:00 Creatinine 0.9 mg/dl (0.7-1.2) 01/18/19 07:00 Est GFR ( Amer) > 60 01/18/19 07:00 Est GFR (Non-Af Amer) > 60 01/18/19 07:00 Random Glucose 109 mg/dL (70-110) 01/18/19 07:00 Calcium 9.3 mg/dL (8.4-10.5) 01/18/19 07:00 Total Bilirubin 0.8 mg/dL (0.2-1.3) 01/18/19 07:00 AST 98 U/L (14-36) H 01/18/19 07:00 ALT 39 U/L (7-56) 01/18/19 07:00 Alkaline Phosphatase 60 U/L (38-126) 01/18/19 07:00 Troponin I 0.04 ng/mL D 01/18/19 07:00 Total Protein 7.9 g/dL (5.8-8.3) 01/18/19 07:00 Albumin 3.9 g/dL (3.0-4.8) 01/18/19 07:00 Globulin 4.0 gm/dL 01/18/19 07:00 Albumin/Globulin Ratio 1.0 (1.1-1.8) L 01/18/19 07:00 TSH 3rd Generation 0.20 mIU/mL (0.46-4.68) L 01/18/19 07:00 Urine Color Yellow (YELLOW) 01/17/19 12:41 Urine Appearance Clear (CLEAR) 01/17/19 12:41 Urine pH 6.0 (4.7-8.0) 01/17/19 12:41 Ur Specific [place] >= 1.030 (1.005-1.035) 01/17/19 12:41 Urine Protein 100 mg/dL (<30 mg/dL) H 01/17/19 12:41 Urine Glucose (UA) Negative mg/dL (NEGATIVE) 01/17/19 12:41 Urine Ketones 15 mg/dL (NEGATIVE) H 01/17/19 12:41 Urine Blood Negative (NEGATIVE) 01/17/19 12:41 Urine Nitrate Negative (NEGATIVE) 01/17/19 12:41 Urine Bilirubin Negative (NEGATIVE) 01/17/19 12:41 Urine Urobilinogen 0.2 E.U./dL (<1 E.U./dL) 01/17/19 12:41 Ur Leukocyte Esterase Negative Toro/uL (NEGATIVE) 01/17/19 12:41 Urine RBC 0 - 2 /hpf (0-2) 01/17/19 12:41 Urine WBC 0 - 2 /hpf (0-6) 01/17/19 12:41 Ur Epithelial Cells 0 - 2 /hpf (0-5) 01/17/19 12:41 Urine Bacteria Small /hpf (NONE) 01/17/19 12:41 - Hospital Course Hospital Course: José Miguel Jalloh D.O. PGY-3, Internal Medicine Resident, Dr. Webb's Service, Discharge Summary 78-year-old female with a past medical history of COPD, dementia, hypothyroidism, GERD, and choledocholithiasis who was found down by her niece at home. Patient was evaluated for possible etiologies of her syncope. Patient was evaluated by neurology. Patient had a carotid Doppler which showed a 40 to 50% right ICA stenosis. Patient also had an echo which showed normal chamber size, LV function was normal. There was mild to moderate . Cardiology evaluated the patient. Patient does have COPD and was continued on her home medications with no acute issues while she was inpatient. Patient has a history of GERD but did not require management. Patient's Aricept was continued. Patient was refusing subacute rehab and there was a potential for TCU. Insurance denied TCU and so after discussion with the daughter she decided that she would like to take her home. Daughter mentioned that the patient takes losartan and verapamil at home and this was discussed between the nurse practitioner and cardiology and it was decided to keep the patient on the losartan only. Clear instructions were given to follow-up with primary medical doctor in 1 to 2 weeks. Extensive discussion was also had about the importance of dangling the legs off of the bed when getting up and then to in general not get up too quickly to avoid any possible further syncopal episodes. Patient was seen and examined today and was feeling well and eager to go home. All questions were welcomed and answered to the verbal satisfaction of the patient. - Date & Time of H&P Date of H&P: 01/20/19 Time of H&P: 11:20 Discharge Exam - Head Exam Head Exam: ATRAUMATIC, NORMOCEPHALIC Discharge Plan - Follow Up Plan Condition: FAIR Instructions: Syncope (DC), Syncope (GEN) Additional Instructions: 1. Follow up with PMD within 1 to 2 weeks. 2. Follow up with subspecialists as indicated. 3. Maintain proper hydration. 4. Make sure to dangle feet off bed before getting up to avoid any more syncopal episodes. RN Note: Pt transferred to subacute TCU. Referrals: Cory Pratt MD [Primary Care Provider] - <Alen Webb - Last Filed: 01/20/19 17:47> Provider - Provider Date of Admission: 01/17/19 19:00 Attending physician: Alen Webb MD Primary care physician: Cory Pratt MD Consults: 01/17/19 18:57 Consult [Physician Consult] Routine Comment: Consulting Provider: Miguelito Quinn Consulting Physician: Miguelito Quinn Reason for Consult: syncope 01/17/19 19:39 Case Management Referral Routine Comment: LIVES ALONE,NEEDS ASSISTANCE AT HOME Physician Instructions: Reason For Exam: EVALUATION Reason for Referral: Optimization Analyst Eval Inpatient [employer] Core Measures Referral Routine Comment: Physician Instructions: Reason For Exam: EVALUATION Nursing Referral for Wound Care Routine Comment: MULTIPLE BRUISING AND RIGHT ELBOW SCABBED AREA-FAL Physician Instructions: Reason For Exam: EVALUATION Transition In Care/Readmission Reduction Routine Comment: Physician Instructions: Reason For Exam: EVALUATION 01/17/19 19:44 Social Work Referral Routine Comment: NEEDS ASSISTANCE ATHOME,LIVES ALONE,FALLS,DEMENTIA Physician Instructions: Reason For Exam: EVALUATION 01/18/19 10:22 Consult [Physician Consult] Routine Comment: Consulting Provider: Juliano Echeverria Consulting Physician: Juliano Echeverria Reason for Consult: syncope 01/20/19 09:24 TCU [Evaluation for TRCU] Routine Comment: Physician Instructions: Reason For Exam: DECONDITIONING Hospital Course - Lab Results Lab Results: Micro Results 01/17/19 20:45 Blood-Venous Blood Culture - Preliminary NO GROWTH AFTER 48 HOURS 01/18/19 17:10 Urine,Clean Catch Urine Culture - Final No Growth (<1,000 CFU/ML) Most Recent Lab Values WBC 11.5 10^3/uL (4.5-11.0) H D 01/18/19 07:00 RBC 4.12 10^6/uL (3.5-6.1) 01/18/19 07:00 Hgb 13.1 g/dL (12.0-16.0) 01/18/19 07:00 Hct 39.3 % (36.0-48.0) 01/18/19 07:00 MCV 95.4 fl (80.0-105.0) 01/18/19 07:00 MCH 31.8 pg (25.0-35.0) 01/18/19 07:00 MCHC 33.3 g/dl (31.0-37.0) 01/18/19 07:00 RDW 14.5 % (11.5-14.5) 01/18/19 07:00 Plt Count 230 10^3/uL (120.0-450.0) 01/18/19 07:00 MPV 11.1 fl (7.0-11.0) H 01/18/19 07:00 Neut % (Auto) 81.9 % (50.0-68.0) H 01/17/19 11:55 Lymph % (Auto) 10.5 % (22.0-35.0) L 01/17/19 11:55 Marshall % (Auto) 7.4 % (1.0-6.0) H 01/17/19 11:55 Eos % (Auto) 0.0 % (1.5-5.0) L 01/17/19 11:55 Baso % (Auto) 0.2 % (0.0-3.0) 01/17/19 11:55 Lymph # (Auto) 1.5 (1.2-3.4) 01/17/19 11:55 Marshall # (Auto) 1.1 (0.1-0.6) H 01/17/19 11:55 Eos # (Auto) 0.0 (0.0-0.7) 01/17/19 11:55 Baso # (Auto) 0.03 K/mm3 (0.0-2.0) 01/17/19 11:55 Absolute Neuts (auto) 11.92 (1.4-6.5) H 01/17/19 11:55 Sodium 137 mmol/L (132-148) 01/18/19 07:00 Potassium 4.1 mmol/L (3.6-5.0) 01/18/19 07:00 Chloride 104 mmol/L (98-107) 01/18/19 07:00 Carbon Dioxide 19 mmol/L (21-33) L 01/18/19 07:00 Anion Gap 18 (10-20) 01/18/19 07:00 BUN 29 mg/dL (7-21) H 01/18/19 07:00 Creatinine 0.9 mg/dl (0.7-1.2) 01/18/19 07:00 Est GFR ( Amer) > 60 01/18/19 07:00 Est GFR (Non-Af Amer) > 60 01/18/19 07:00 Random Glucose 109 mg/dL (70-110) 01/18/19 07:00 Calcium 9.3 mg/dL (8.4-10.5) 01/18/19 07:00 Total Bilirubin 0.8 mg/dL (0.2-1.3) 01/18/19 07:00 AST 98 U/L (14-36) H 01/18/19 07:00 ALT 39 U/L (7-56) 01/18/19 07:00 Alkaline Phosphatase 60 U/L (38-126) 01/18/19 07:00 Troponin I 0.04 ng/mL D 01/18/19 07:00 Total Protein 7.9 g/dL (5.8-8.3) 01/18/19 07:00 Albumin 3.9 g/dL (3.0-4.8) 01/18/19 07:00 Globulin 4.0 gm/dL 01/18/19 07:00 Albumin/Globulin Ratio 1.0 (1.1-1.8) L 01/18/19 07:00 TSH 3rd Generation 0.20 mIU/mL (0.46-4.68) L 01/18/19 07:00 Urine Color Yellow (YELLOW) 01/17/19 12:41 Urine Appearance Clear (CLEAR) 01/17/19 12:41 Urine pH 6.0 (4.7-8.0) 01/17/19 12:41 Ur Specific [place] >= 1.030 (1.005-1.035) 01/17/19 12:41 Urine Protein 100 mg/dL (<30 mg/dL) H 01/17/19 12:41 Urine Glucose (UA) Negative mg/dL (NEGATIVE) 01/17/19 12:41 Urine Ketones 15 mg/dL (NEGATIVE) H 01/17/19 12:41 Urine Blood Negative (NEGATIVE) 01/17/19 12:41 Urine Nitrate Negative (NEGATIVE) 01/17/19 12:41 Urine Bilirubin Negative (NEGATIVE) 01/17/19 12:41 Urine Urobilinogen 0.2 E.U./dL (<1 E.U./dL) 01/17/19 12:41 Ur Leukocyte Esterase Negative Toro/uL (NEGATIVE) 01/17/19 12:41 Urine RBC 0 - 2 /hpf (0-2) 01/17/19 12:41 Urine WBC 0 - 2 /hpf (0-6) 01/17/19 12:41 Ur Epithelial Cells 0 - 2 /hpf (0-5) 01/17/19 12:41 Urine Bacteria Small /hpf (NONE) 01/17/19 12:41 - Hospital Course Hospital Course: Pt seen and examined by me. I have reviewed the note of the claim review medical director and I agree with it. I have discussed the assessment and plan with the resident. I have reviewed the medications and the last labs.
[2019-01-20 12:02] VITALS: RESP 19
[2019-01-20 17:25] VITALS: BP 130/78; PULSE 87; TEMP 97.7
--- NOTE | 2019-01-21 02:41 | PN ---
DATE: 01/20/2019 SUBJECTIVE: The patient is sitting in chair on telemetry. She is comfortable at present time. She denies any lightheadedness. No significant dysrhythmias have been documented. Her blood pressure has been somewhat elevated over the past 24 hours. Her medications had been on hold. Her current medications include Aricept, Brovana, DuoNeb inhaler, Lasix 40 mg b.i.d., Pulmicort, Spiriva. OBJECTIVE: GENERAL: She is an elderly woman who appears comfortable at rest. VITAL SIGNS: Blood pressure is 155/80 with pulse of 96, respirations are 16. She is afebrile. HEENT: No JVD. Carotid upstrokes are diminished and delayed. CHEST: Few scattered rhonchi heard. HEART: PMI displaced laterally with a late-peaking systolic murmur at the base and in the carotids. ABDOMEN: Soft, nontender with bowel sounds. EXTREMITIES: No edema. DIAGNOSTIC DATA: No blood work pending from this morning. Echocardiogram was performed and showed evidence of normal chamber size, mild concentric LVH, normal LV systolic function with [id number] aortic stenosis as well as mild mitral and tricuspid regurgitation. IMPRESSION: 1. Recent apparent syncope. Workup is unremarkable as far. 2. Nrhr-ie-leyerqug aortic stenosis. I doubt this has any significant role in her presenting symptoms. 3. Hypertension with suboptimal control. 4. History of hypothyroidism. RECOMMENDATIONS: Antihypertensive therapy should be resumed. No further cardiac workup is planned at this time unless she has recurrent symptoms. Avoidance of volume depletion is advised. From a cardiac standpoint, she is stable for discharge. Outpatient followup can be arranged as needed. Juliano Echeverria MD
--- NOTE | 2019-01-21 03:32 | DS ---
HOSPITAL COURSE: The patient was seen and examined. I do agree with the note of the medical tech. I was involved in the plan of care. The patient is going to be discharged today. The patient has syncope. She was evaluated with an echo and carotid Dopplers, which were negative. The patient is going to subacute rehab. She has a history of COPD, dementia, hypothyroidism, and GERD. She is on Aricept for her dementia. She is on verapamil and losartan for her hypertension. The patient was only be on losartan after the patient's daughter stated that she is not on the verapamil. The patient is going to be discharged. Alen Webb MD
== END 2019-01-20 19:45 | DRG 312 ==
LOC: ED 11:09 → ERH 13:20 → 2RNO 15:52 → OBSVTOIN 19:00 → UNDODISIN 01-20 14:31
PROVIDERS: ADMIT Internal Medicine Nephrology; ATTEND Internal Medicine Nephrology
PROC: 3E0F7GC Introduction of Other Therapeutic Substance into Respiratory Tract, Via Natural or Artificial Opening (ICD-10-PCS; principal; 2019-01-17)
DX: R55 Syncope and collapse (principal); I65.21 Occlusion and stenosis of right carotid artery; E03.9 Hypothyroidism, unspecified; J44.9 Chronic obstructive pulmonary disease, unspecified; I10 Essential (primary) hypertension; F03.90 Unspecified dementia, unspecified severity, without behavioral disturbance, psychotic disturbance, mood disturbance, and anxiety; K21.9 Gastro-esophageal reflux disease without esophagitis; I35.0 Nonrheumatic aortic (valve) stenosis; Z79.890 Hormone replacement therapy; Z79.899 Other long term (current) drug therapy; Z87.891 Personal history of nicotine dependence; Z88.0 Allergy status to penicillin

== ENCOUNTER 2019-01-20 19:48 | Inpatient (IN) | payer OTHER, BC ==
[2019-01-20 20:18] VITALS: BMI 23.1
[2019-01-20] MEDS ORDERED: Albuterol-Ipratrop 3 mg / 0.5 (3 ml) UD IH PRN (20:23)
[2019-01-20] MEDS ORDERED: Albuterol-Ipratrop 3 mg / 0.5 (3 ml) UD IH SCH (23:30)
--- NOTE | 2019-01-21 06:52 | CP.PCM.HP ---
<José Miguel Jalloh - Last Filed: 01/21/19 12:59> History of Present Illness - History of Present Illness History of Present Illness: José Miguel Jalloh D.O. PGY-3, Internal Medicine Resident, Dr. Webb's Service, H&P 78-year-old female with a past medical history of COPD, dementia, hypothyroidism, GERD, and choledocholithiasis who was found down by her niece at home, managed inpatient, and now in the TCU for rehabilitation. Patient was seen and examined at bedside. Patient was sitting up comfortably enjoying breakfast. Patient states that this time she was no acute events. Eager to go home. Denies any nausea, vomiting, diarrhea, constipation, neck, headache area, hematuria or any other acute complaints at this time. PMH: As above PSH: Cholecystectomy FH: Noncontributory SH: Former smoker, denies alcohol or drugs Meds: Reviewed Allergies: Penicillin but has tolerated Rocephin in the past Present on Admission - Present on Admission Any Indicators Present on Admission: No Review of Systems - Review of Systems All systems: reviewed and no additional remarkable complaints except (as per HPI) Past Patient History - Infectious Disease Hx of Infectious Diseases: None - Tetanus Immunizations Tetanus Immunization: Unknown - Past Social History Smoking Status: Former Smoker - CARDIAC Hx Cardiac Disorders: Yes Hx Hypercholesterolemia: Yes Hx Hypertension: Yes - PULMONARY Hx Chronic Obstructive Pulmonary Disease (COPD): Yes - NEUROLOGICAL Hx Neurological Disorder: Yes Hx Dementia: Yes - HEENT Hx HEENT Problems: No Hx Blind: No Hx Cataracts: No Hx Deafness: No Hx Difficulty Chewing: No Hx Epistaxis: No Hx Glaucoma: No Hx Macular Degeneration: No - RENAL Hx Renal Failure: No - ENDOCRINE/METABOLIC Hx Endocrine Disorders: Yes Hx Hypothyroidism: Yes - HEMATOLOGICAL/ONCOLOGICAL Hx Blood Disorders: No Hx AIDS: No Hx Anemia: No Hx Chemotherapy: No Hx Cirrhosis: No Hx Hepatitis A: No Hx Hepatitis B: No Hx Hepatitis C: No Hx Metastesis: No Hx Shingles: No Hx Unexplained Bleeding: No - INTEGUMENTARY Hx Dermatological Problems: Yes Hx Basil Cell: No Hx Eczema: No Hx Melanoma: No Hx Psoriasis: No Hx Squamous Cell: No Other/Comment: 01-17-19 MULTIPLE BRUISING FROM FALL.LEFT LATERAL SIDE-LEFT SIDE OF THIGH,L KNEE,LEG AND TOP OF LEFT FOOT.RIGHT INNER BUTTOCK AREA.RIGHT SHOULDER,RIGHT ELBOW WITH A LARGE SCABBED AREA.SURROUNDING SKIN IS BRIGHT RED.PAIN TO UPPER R BACK WHEN MOVED. - MUSCULOSKELETAL/RHEUMATOLOGICAL Hx Musculoskeletal Disorders: Yes Hx Falls: Yes (SYNCOPE 01-17-19) Hx Unsteady Gait: Yes (CANE) - GASTROINTESTINAL Hx Gastrointestinal Disorders: Yes (choledocholithiasis,BARETT'S,GASTRITIS) Hx Gastroesophageal Reflux: Yes - GENITOURINARY/GYNECOLOGICAL Hx Genitourinary Disorders: Yes (hx of urinary bladder polyp) Hx Reproductive Disorders: No - PSYCHIATRIC Hx Psychophysiologic Disorder: No Hx Emotional Abuse: No Hx Physical Abuse: No - SURGICAL HISTORY Hx Surgeries: Yes Hx Cholecystectomy: Yes - ANESTHESIA Hx Anesthesia Reactions: No Hx Malignant Hyperthermia: No Meds Allergies/Adverse Reactions: Allergies Allergy/AdvReac Type Severity Reaction Status Date / Time Penicillins Allergy SWELLING Verified 01/20/19 20:15 Physical Exam - Constitutional Appears: Non-toxic, No Acute Distress - Head Exam Head Exam: ATRAUMATIC, NORMOCEPHALIC - Eye Exam Eye Exam: EOMI. absent: Scleral icterus - ENT Exam ENT Exam: Mucous Membranes Moist, Normal Oropharynx - Neck Exam Neck exam: Positive for: Normal Inspection. Negative for: Lymphadenopathy - Respiratory Exam Respiratory Exam: absent: Rales, Rhonchi, Wheezes - Cardiovascular Exam Cardiovascular Exam: RRR, +S1, +S2. absent: Gallop, Rubs - GI/Abdominal Exam GI & Abdominal Exam: Normal Bowel Sounds, Soft. absent: Distended, Tenderness - Extremities Exam Extremities exam: Negative for: calf tenderness - Neurological Exam Neurological exam: Alert - Skin Skin Exam: Dry, Warm Results - Labs Labs: Laboratory Results - last 24 hr 01/20/19 21:35 POC Glucose (mg/dL) 120 H Assessment & Plan - Assessment and Plan (Free Text) Assessment: 78-year-old female with a past medical history of COPD, dementia, hypothyroi dism, GERD, and choledocholithiasis who was found down by her niece at home, managed inpatient, and now in the TCU for rehabilitation. Plan: 1. Gait dysfunction 2. Syncope likely vasovagal 3. COPD 4. Dementia 5. GERD Patient will be admitted to the disposition of care unit for to need physical therapy. Patient will continue on her Brovana, Spiriva, Pulmicort as needed nebulizers for COPD. Patient will also continue on Aricept for dementia. Patient blood pressure is currently controlled on verapamil and losartan. We will continue to follow the patient closely during her rehabilitation. Patient was seen and examined case was discussed extensively with attending physician. - Date & Time Date: 01/21/19 Time: 07:40 <Alen Webb - Last Filed: 01/21/19 15:23> Results - Vital Signs Recent Vital Signs: Last Vital Signs Temp Pulse 88 01/21/19 13:08 Resp BP 149/71 01/21/19 10:59 Pulse Ox - Labs Labs: Laboratory Results - last 24 hr 01/20/19 21:35 POC Glucose (mg/dL) 120 H Assessment & Plan - Assessment and Plan (Free Text) Plan: Pt seen and examined by me. I have reviewed the note of the medical billing coordinator and I agree with it. I have discussed the assessment and plan with the resident. I have reviewed the medications and the last labs. Pt with COPD and is on Neb treatments. Sheis on Aricpet for Dementia. On losartan for HTN.
[2019-01-21] MEDS: guaiFENesin DM 100 mg-10 mg/5 ml UD PO PRN (06:53)
[2019-01-21] MEDS: Budesonide 0.25 mg/2 ml Inhal Susp UD IH SCH ×2 (07:17→20:21)
[2019-01-21] MEDS: Arformoterol 15 mcg/2 ml Inh Sol IH SCH ×2 (07:17→20:21)
[2019-01-21] MEDS ORDERED: Arformoterol 15 mcg/2 ml Inh Sol IH SCH (08:00)
[2019-01-21] MEDS: Tiotropium 18 mcg Cap For Inhalation IH SCH (10:59)
[2019-01-21] MEDS: Furosemide 40 mg/5 mL Oral Soln UD PO SCH (10:59)
[2019-01-22] MEDS: Arformoterol 15 mcg/2 ml Inh Sol IH SCH ×2 (07:33→21:54)
[2019-01-22] MEDS: Budesonide 0.25 mg/2 ml Inhal Susp UD IH SCH ×2 (07:34→21:54)
[2019-01-22] MEDS: Tiotropium 18 mcg Cap For Inhalation IH SCH (09:49)
[2019-01-22] MEDS: Furosemide 40 mg/5 mL Oral Soln UD PO SCH (09:50)
--- NOTE | 2019-01-22 15:25 | CP.PCM.PN ---
<José Miguel Jalloh - Last Filed: 01/22/19 15:21> Subjective - Date & Time of Evaluation Date of Evaluation: 01/22/19 Time of Evaluation: 08:00 - Subjective Subjective: José Miguel Jalloh D.O. PGY-3, Internal Medicine Resident, Dr. Webb's Service, Progress Note 78-year-old female with a past medical history of COPD, dementia, hypothyroidism, GERD, and choledocholithiasis who was found down by her niece at home, managed inpatient, and now in the TCU for rehabilitation. Patient was examined at bedside. Patient is doing well this time. Patient undergoing breathing treatment at this time with improvement in her breathing. States has been active in physical therapy. Objective - Vital Signs/Intake and Output Vital Signs (last 24 hours): Temp Pulse Resp BP Pulse Ox 97.8 F 78 19 124/52 L 97 01/21/19 16:00 01/22/19 05:51 01/21/19 16:00 01/22/19 09:50 01/21/19 16:00 - Medications Medications: Current Medications Acetaminophen (Tylenol 325mg Tab) 650 mg PO Q6H PRN PRN Reason: Pain, moderate (4-7) Last Admin: 01/22/19 01:19 Dose: 650 mg Albuterol/Ipratropium (Duoneb 3 Mg/0.5 Mg (3 Ml) Ud) 3 ml IH [id number] PRN PRN Reason: Shortness of Breath Last Admin: 01/21/19 11:16 Dose: 3 ml Arformoterol Tartrate (Brovana) 15 mcg IH [id number] [facility] Last Admin: 01/22/19 07:33 Dose: 15 mcg Budesonide (Pulmicort Respules) 0.25 mg IH [id number] Last Admin: 01/22/19 07:34 Dose: 0.25 mg Donepezil HCl (Aricept) 5 mg PO HS [facility] Last Admin: 01/21/19 21:14 Dose: 5 mg Furosemide (Lasix) 40 mg PO DAILY [facility] Last Admin: 01/22/19 09:50 Dose: 40 mg Guaifenesin/Dextromethorphan (Robitussin Dm) 5 ml PO Q4H PRN PRN Reason: Cough Last Admin: 01/21/19 06:53 Dose: 5 ml Losartan Potassium (Cozaar) 25 mg PO DAILY [facility] Last Admin: 01/22/19 09:57 Dose: Not Given Tiotropium [place] (Spiriva) 18 mcg IH DAILY [facility] Last Admin: 01/22/19 09:49 Dose: 18 mcg - Constitutional Appears: Non-toxic, No Acute Distress - Head Exam Head Exam: ATRAUMATIC, NORMOCEPHALIC - Eye Exam Eye Exam: EOMI. absent: Scleral icterus - ENT Exam ENT Exam: Mucous Membranes Moist, Normal Oropharynx - Neck Exam Neck Exam: Normal Inspection - Respiratory Exam Respiratory Exam: absent: Rales, Rhonchi, Wheezes - Cardiovascular Exam Cardiovascular Exam: +S1, +S2. absent: Gallop, Rubs - GI/Abdominal Exam GI & Abdominal Exam: Soft. absent: Distended, Tenderness - Extremities Exam Extremities Exam: absent: Calf Tenderness - Neurological Exam Neurological Exam: Alert, Awake - Skin Skin Exam: Dry, Warm Assessment and Plan - Assessment and Plan (Free Text) Assessment: 78-year-old female with a past medical history of COPD, dementia, hypothyroidism, GERD, and choledocholithiasis who was found down by her niece at home, managed inpatient, and now in the TCU for rehabilitation. Plan: 1. Gait dysfunction 2. Syncope likely vasovagal 3. COPD 4. Dementia 5. GERD Doing well with physical therapy. Continue with Brovana, Spiriva, Pulmicort and as needed nebulizers for her COPD. On Aricept for her dementia. Blood pressure is controlled on verapamil and losartan. We will continue to follow. Patient was seen and examined case was discussed extensively with attending physician. <Alen Webb - Last Filed: 01/22/19 21:37> Objective - Vital Signs/Intake and Output Vital Signs (last 24 hours): Temp Pulse Resp BP Pulse Ox 97 F L 96 H 16 154/78 H 92 L 01/22/19 16:00 01/22/19 16:00 01/22/19 16:00 01/22/19 16:00 01/22/19 16:00 - Medications Medications: Current Medications Acetaminophen (Tylenol 325mg Tab) 650 mg PO Q6H PRN PRN Reason: Pain, moderate (4-7) Last Admin: 01/22/19 01:19 Dose: 650 mg Albuterol/Ipratropium (Duoneb 3 Mg/0.5 Mg (3 Ml) Ud) 3 ml IH [id number] PRN PRN Reason: Shortness of Breath Last Admin: 01/21/19 11:16 Dose: 3 ml Arformoterol Tartrate (Brovana) 15 mcg IH [id number] [facility] Last Admin: 01/22/19 07:33 Dose: 15 mcg Budesonide (Pulmicort Respules) 0.25 mg IH [id number] [facility] Last Admin: 01/22/19 07:34 Dose: 0.25 mg Donepezil HCl (Aricept) 5 mg PO HS [facility] Last Admin: 01/21/19 21:14 Dose: 5 mg Furosemide (Lasix) 40 mg PO DAILY [facility] Last Admin: 01/22/19 09:50 Dose: 40 mg Guaifenesin/Dextromethorphan (Robitussin Dm) 5 ml PO Q4H PRN PRN Reason: Cough Last Admin: 01/21/19 06:53 Dose: 5 ml Losartan Potassium (Cozaar) 25 mg PO DAILY [facility] Last Admin: 01/22/19 09:57 Dose: Not Given Tiotropium [place] (Spiriva) 18 mcg IH DAILY [facility] Last Admin: 01/22/19 09:49 Dose: 18 mcg Assessment and Plan - Assessment and Plan (Free Text) Plan: Pt seen and examined by me. I have reviewed the note of the medical reception specialist and I agree with it. I have discussed the assessment and plan with the resident. I have reviewed the medications and the last labs.
--- NOTE | 2019-01-23 01:18 | PN ---
DATE: 01/22/2019 The patient was seen and examined. I do agree with the note of the medical charge entry specialist. I was involved in the plan of care. The patient had gait dysfunction. She is getting physical therapy. She has COPD and is on Brovana, Spiriva and Pulmicort. She is on Aricept for her dementia. She is going to be on losartan and verapamil for her blood pressure. I did speak to the patient's niece at the bedside to give her an update on the patient's diagnosis and plan of care. Alen Webb MD
[2019-01-23] MEDS: Budesonide 0.25 mg/2 ml Inhal Susp UD IH SCH ×2 (07:07→20:40)
[2019-01-23] MEDS: Arformoterol 15 mcg/2 ml Inh Sol IH SCH ×2 (07:07→20:40)
[2019-01-23] MEDS: guaiFENesin DM 100 mg-10 mg/5 ml UD PO PRN ×3 (09:13→21:22)
[2019-01-23] MEDS: Furosemide 40 mg/5 mL Oral Soln UD PO SCH (09:13)
[2019-01-23] MEDS: Tiotropium 18 mcg Cap For Inhalation IH SCH (09:13)
--- NOTE | 2019-01-23 14:46 | CP.PCM.PN ---
<José Miguel Jalloh - Last Filed: 01/23/19 14:42> Subjective - Date & Time of Evaluation Date of Evaluation: 01/23/19 Time of Evaluation: 07:35 - Subjective Subjective: José Miguel Jalloh D.O. PGY-3, Internal Medicine Resident, Dr. Webb's Service, Progress Note 78-year-old female with a past medical history of COPD, dementia, hypothyroidism, GERD, and choledocholithiasis who was found down by her niece at home, managed inpatient, and now in the TCU for rehabilitation. Patient was examined at bedside. Doing well. Comfortable. No active complaints. Objective - Vital Signs/Intake and Output Vital Signs (last 24 hours): Temp Pulse Resp BP Pulse Ox 97.3 F L 102 H 18 134/74 94 L 01/23/19 10:00 01/23/19 10:00 01/23/19 10:00 01/23/19 10:00 01/23/19 10:00 Intake and Output: 01/23/19 01/23/19 06:59 18:59 Intake Total 540 Balance 540 - Medications Medications: Current Medications Acetaminophen (Tylenol 325mg Tab) 650 mg PO Q6H PRN PRN Reason: Pain, moderate (4-7) Last Admin: 01/22/19 01:19 Dose: 650 mg Albuterol/Ipratropium (Duoneb 3 Mg/0.5 Mg (3 Ml) Ud) 3 ml IH [id number] PRN PRN Reason: Shortness of Breath Last Admin: 01/21/19 11:16 Dose: 3 ml Arformoterol Tartrate (Brovana) 15 mcg [facility] [id number] [facility] Last Admin: 01/23/19 07:07 Dose: 15 mcg Budesonide (Pulmicort Respules) 0.25 mg IH [id number] [facility] Last Admin: 01/23/19 07:07 Dose: 0.25 mg Donepezil HCl (Aricept) 5 mg PO HS [facility] Last Admin: 01/22/19 21:48 Dose: 5 mg Furosemide (Lasix) 40 mg PO DAILY [facility] Last Admin: 01/23/19 09:13 Dose: 40 mg Guaifenesin/Dextromethorphan (Robitussin Dm) 5 ml PO Q4H PRN PRN Reason: Cough Last Admin: 01/23/19 12:57 Dose: 5 ml Losartan Potassium (Cozaar) 25 mg PO DAILY [facility] Last Admin: 01/23/19 09:13 Dose: 25 mg Tiotropium Prim (Spiriva) 18 mcg IH DAILY [facility] Last Admin: 01/23/19 09:13 Dose: 18 mcg - Constitutional Appears: Non-toxic, No Acute Distress - Head Exam Head Exam: ATRAUMATIC, NORMOCEPHALIC - Eye Exam Eye Exam: EOMI. absent: Scleral icterus - ENT Exam ENT Exam: Mucous Membranes Moist, Normal Oropharynx - Neck Exam Neck Exam: Normal Inspection - Respiratory Exam Respiratory Exam: absent: Rales, Rhonchi, Wheezes - Cardiovascular Exam Cardiovascular Exam: +S1, +S2. absent: Gallop, Rubs - GI/Abdominal Exam GI & Abdominal Exam: Soft. absent: Distended, Tenderness - Extremities Exam Extremities Exam: absent: Calf Tenderness - Neurological Exam Neurological Exam: Alert, Awake - Skin Skin Exam: Dry, Warm Assessment and Plan - Assessment and Plan (Free Text) Assessment: 78-year-old female with a past medical history of COPD, dementia, hypothyroidism, GERD, and choledocholithiasis who was found down by her niece at home, managed inpatient, and now in the TCU for rehabilitation. Plan: 1. Gait dysfunction 2. Syncope likely vasovagal 3. COPD 4. Dementia 5. GERD Continue with physical therapy. COPD controlled with Brovana, Spiriva, Pulmi blaine and as needed nebulizers. For her dementia she is on blood pressure continues to be controlled with verapamil and losartan. Patient was seen and examined case was discussed extensively with attending physician. <Alen Webb S - Last Filed: 01/23/19 16:46> Objective - Vital Signs/Intake and Output Vital Signs (last 24 hours): Temp Pulse Resp BP Pulse Ox 97.3 F L 102 H 18 134/74 94 L 01/23/19 10:00 01/23/19 10:00 01/23/19 10:00 01/23/19 10:00 01/23/19 10:00 Intake and Output: 01/23/19 01/23/19 06:59 18:59 Intake Total 540 Balance 540 - Medications Medications: Current Medications Acetaminophen (Tylenol 325mg Tab) 650 mg PO Q6H PRN PRN Reason: Pain, moderate (4-7) Last Admin: 01/22/19 01:19 Dose: 650 mg Albuterol/Ipratropium (Duoneb 3 Mg/0.5 Mg (3 Ml) Ud) 3 ml IH [id number] PRN PRN Reason: Shortness of Breath Last Admin: 01/21/19 11:16 Dose: 3 ml Arformoterol Tartrate (Brovana) 15 mcg [facility] [id number] [facility] Last Admin: 01/23/19 07:07 Dose: 15 mcg Budesonide (Pulmicort Respules) 0.25 mg IH [id number] [facility] Last Admin: 01/23/19 07:07 Dose: 0.25 mg Donepezil HCl (Aricept) 5 mg PO HS [facility] Last Admin: 01/22/19 21:48 Dose: 5 mg Furosemide (Lasix) 40 mg PO DAILY [facility] Last Admin: 01/23/19 09:13 Dose: 40 mg Guaifenesin/Dextromethorphan (Robitussin Dm) 5 ml PO Q4H PRN PRN Reason: Cough Last Admin: 01/23/19 12:57 Dose: 5 ml Losartan Potassium (Cozaar) 25 mg PO DAILY [facility] Last Admin: 01/23/19 09:13 Dose: 25 mg Tiotropium Prim (Spiriva) 18 mcg IH DAILY [facility] Last Admin: 01/23/19 09:13 Dose: 18 mcg Assessment and Plan - Assessment and Plan (Free Text) Plan: Pt seen and examined by me. I have reviewed the note of the outside medical sales representative and I agree with it. I have discussed the assessment and plan with the resident. I have reviewed the medications and the last labs.
--- NOTE | 2019-01-23 21:18 | PN ---
DATE: 01/23/2019 HOSPITAL COURSE: The patient was seen and examined. I do agree with the note of the medical assistant float. I was involved in the plan of care. The patient is currently comfortable. She is getting physical therapy at the transitional care unit. She has gait dysfunction and she will need continued physical therapy. She has COPD and is controlled by Brovana, Spiriva, and Pulmicort. She also gets nebulizer as needed. The patient is on losartan and verapamil for her hypertension. She has dementia and it is currently mild. The patient states that she is eating well. I did speak to the nursing staff and there were no issues overnight. She said she was able to sleep. She is going to continue with her cough medications. She is on guaifenesin. She is on Lasix daily. The patient is going to be on Aricept for her dementia Alzheimer's type. Alen Webb MD
[2019-01-24] MEDS: Arformoterol 15 mcg/2 ml Inh Sol IH SCH ×2 (07:33→20:16)
[2019-01-24] MEDS: Budesonide 0.25 mg/2 ml Inhal Susp UD IH SCH ×2 (07:34→20:16)
[2019-01-24] MEDS: Tiotropium 18 mcg Cap For Inhalation IH SCH (09:49)
[2019-01-24] MEDS: guaiFENesin DM 100 mg-10 mg/5 ml UD PO PRN ×2 (09:49→21:03)
[2019-01-24] MEDS: Furosemide 40 mg/5 mL Oral Soln UD PO SCH (09:49)
--- NOTE | 2019-01-24 18:31 | PN ---
DATE: 01/24/2019 SUBJECTIVE: The patient has no complaints. Denies any chest pain, shortness of breath, or headaches. She does have a cough. PHYSICAL EXAMINATION: VITAL SIGNS: Temperature is 98, pulse of 67, blood pressure 137/67, respirations 14. GENERAL: The patient is lying in bed, flat, comfortable. HEENT: No oral lesion. Anicteric sclerae. Moist mucosa. NECK: No JVD, adenopathy, or thyromegaly. CARDIOVASCULAR: S1 and S2, regular. No murmurs, rubs, or gallops. LUNGS: Clear to auscultation bilaterally. No wheeze, rales, or rhonchi. ABDOMEN: Bowel sounds are positive, soft, nontender and nondistended. EXTREMITIES: no cyanosis, clubbing or edema. ASSESSMENT: 1. Gait dysfunction. 2. Syncope secondary to vasovagal, resolved. 3. Chronic obstructive pulmonary disease. 4 Gastroesophageal reflux disease. 5. Dementia, Alzheimer's type. PLAN: The patient is going to continue with Donepezil for the dementia. She is on arformoterol for her COPD. The patient is on Losartan for hypertension. She is receiving Lasix daily. She is tiotropium for her COPD. She is on Tylenol as needed. She is working well with physical therapy. Alen Webb MD
[2019-01-25] MEDS: guaiFENesin DM 100 mg-10 mg/5 ml UD PO PRN ×3 (02:39→21:28)
[2019-01-25] MEDS: Arformoterol 15 mcg/2 ml Inh Sol IH SCH ×2 (07:18→19:40)
[2019-01-25] MEDS: Budesonide 0.25 mg/2 ml Inhal Susp UD IH SCH ×2 (07:18→19:39)
[2019-01-25] MEDS: Furosemide 40 mg/5 mL Oral Soln UD PO SCH (09:13)
[2019-01-25] MEDS: Tiotropium 18 mcg Cap For Inhalation IH SCH (09:14)
--- NOTE | 2019-01-25 15:11 | PN ---
DATE: 01/25/2019 SUBJECTIVE: The patient is 78 years old. Seen and examined. Sitting in dayroom with her daughter. Complaining of dry cough. Complaining of generalized weakness, otherwise feeling better than before. PHYSICAL EXAMINATION: VITAL SIGNS: She is afebrile, pulse 81, respirations 18, and blood pressure 150/65. LUNGS: Bilateral fair airflow. No rhonchi or crackles. HEART: S1 and S2 audible. ABDOMEN: Soft. Nontender. No rebound. No guarding. NEUROLOGIC: The patient is awake and alert. Able to communicate. LABORATORY EXAMINATION: Blood sugar is 120. ASSESSMENT: 1. Status post fall. 2. Deconditioning and difficulty walking. 3. History of chronic obstructive pulmonary disease. 4. Peptic ulcer disease. 5. Dementia. 6. Bronchitis. PLAN: Currently, the patient is on Brovana, Losartan, and donepezil. She is on nebulizer treatment. She is on antitussive. We will start her on a small dose of prednisone. She might benefit from small dose of steroid. We will start her on Tessalon Perles three times a day and she can have cough syrup as needed in between. Wyatt Cuello MD
[2019-01-26] MEDS: guaiFENesin DM 100 mg-10 mg/5 ml UD PO PRN ×3 (02:54→21:21)
[2019-01-26] MEDS: Arformoterol 15 mcg/2 ml Inh Sol IH SCH ×2 (07:15→20:30)
[2019-01-26] MEDS: Budesonide 0.25 mg/2 ml Inhal Susp UD IH SCH ×2 (07:15→20:30)
[2019-01-26 07:28] VITALS: RESP 18
[2019-01-26] MEDS: Furosemide 40 mg/5 mL Oral Soln UD PO SCH (10:56)
[2019-01-26] MEDS: Tiotropium 18 mcg Cap For Inhalation IH SCH (10:56)
--- NOTE | 2019-01-26 14:00 | CP.PCM.PN ---
<José Miguel Jalloh - Last Filed: 01/26/19 13:58> Subjective - Date & Time of Evaluation Date of Evaluation: 01/26/19 Time of Evaluation: 07:30 - Subjective Subjective: José Miguel Jalloh D.O. PGY-3, Internal Medicine Resident, Dr. eWbb's Service, Progress Note 78-year-old female with a past medical history of COPD, dementia, hypothyroidism, GERD, and choledocholithiasis who was found down by her niece at home, managed inpatient, and now in the TCU for rehabilitation. Patient was examined at bedside. Eager to get better. Literally counting down to the day she can go home on her wall. Pleasant as always. Objective - Vital Signs/Intake and Output Vital Signs (last 24 hours): Temp Pulse Resp BP Pulse Ox 98.2 F 80 18 151/89 H 95 01/26/19 06:00 01/26/19 10:56 01/26/19 06:00 01/26/19 10:56 01/26/19 06:00 - Medications Medications: Current Medications Acetaminophen (Tylenol 325mg Tab) 650 mg PO Q6H PRN PRN Reason: Pain, moderate (4-7) Last Admin: 01/26/19 02:52 Dose: 650 mg Albuterol/Ipratropium (Duoneb 3 Mg/0.5 Mg (3 Ml) Ud) 3 ml IH [id number] PRN PRN Reason: Shortness of Breath Last Admin: 01/21/19 11:16 Dose: 3 ml Arformoterol Tartrate (Brovana) 15 mcg IH [id number] [facility] Last Admin: 01/26/19 07:15 Dose: 15 mcg Benzonatate (Tessalon Perles) 100 mg PO TID [facility] Last Admin: 01/26/19 10:56 Dose: 100 mg Budesonide (Pulmicort Respules) 0.25 mg IH [id number] [facility] Last Admin: 01/26/19 07:15 Dose: 0.25 mg Donepezil HCl (Aricept) 5 mg PO HS [facility] Last Admin: 01/25/19 21:28 Dose: 5 mg Furosemide (Lasix) 40 mg PO DAILY [facility] Last Admin: 01/26/19 10:56 Dose: 40 mg Guaifenesin/Dextromethorphan (Robitussin Dm) 5 ml PO Q4H PRN PRN Reason: Cough Last Admin: 01/26/19 10:57 Dose: 5 ml Losartan Potassium (Cozaar) 25 mg PO DAILY [facility] Last Admin: 01/26/19 10:56 Dose: 25 mg Prednisone (Prednisone Tab) 20 mg PO 0800,1800 [facility] Last Admin: 01/26/19 07:52 Dose: 20 mg Tiotropium [place] (Spiriva) 18 mcg IH DAILY [facility] Last Admin: 01/26/19 10:56 Dose: 18 mcg - Constitutional Appears: Non-toxic, No Acute Distress - Head Exam Head Exam: ATRAUMATIC, NORMOCEPHALIC - Eye Exam Eye Exam: EOMI. absent: Scleral icterus - ENT Exam ENT Exam: Mucous Membranes Moist, Normal Oropharynx - Neck Exam Neck Exam: Normal Inspection - Respiratory Exam Respiratory Exam: absent: Rales, Rhonchi, Wheezes - Cardiovascular Exam Cardiovascular Exam: +S1, +S2. absent: Gallop, Rubs - GI/Abdominal Exam GI & Abdominal Exam: Soft. absent: Distended, Tenderness - Extremities Exam Extremities Exam: absent: Calf Tenderness - Neurological Exam Neurological Exam: Alert, Awake - Skin Skin Exam: Dry, Warm Assessment and Plan - Assessment and Plan (Free Text) Assessment: 78-year-old female with a past medical history of COPD, dementia, hypothyroidism, GERD, and choledocholithiasis who was found down by her niece at home, managed inpatient, and now in the TCU for rehabilitation. Plan: 1. Gait dysfunction 2. Syncope likely vasovagal 3. COPD 4. Dementia 5. GERD Doing well with physical therapy. For her COPD she is on Brovana, Spiriva, Pulmicort and as needed nebulizers. Continue donepezil for her dementia. Blood pressure controlled with verapamil and losartan. Continue to monitor. Patient was seen and examined case was discussed extensively with attending physician. <Alen Webb - Last Filed: 01/26/19 18:02> Objective - Vital Signs/Intake and Output Vital Signs (last 24 hours): Temp Pulse Resp BP Pulse Ox 98.2 F 80 18 151/89 H 95 01/26/19 06:00 01/26/19 10:56 01/26/19 06:00 01/26/19 10:56 01/26/19 06:00 - Medications Medications: Current Medications Acetaminophen (Tylenol 325mg Tab) 650 mg PO Q6H PRN PRN Reason: Pain, moderate (4-7) Last Admin: 01/26/19 02:52 Dose: 650 mg Albuterol/Ipratropium (Duoneb 3 Mg/0.5 Mg (3 Ml) Ud) 3 ml IH [id number] PRN PRN Reason: Shortness of Breath Last Admin: 01/21/19 11:16 Dose: 3 ml Arformoterol Tartrate (Brovana) 15 mcg IH [id number] [facility] Last Admin: 01/26/19 07:15 Dose: 15 mcg Benzonatate (Tessalon Perles) 100 mg PO TID [facility] Last Admin: 01/26/19 17:02 Dose: 100 mg Budesonide (Pulmicort Respules) 0.25 mg IH [id number] [facility] Last Admin: 01/26/19 07:15 Dose: 0.25 mg Donepezil HCl (Aricept) 5 mg PO HS [facility] Last Admin: 01/25/19 21:28 Dose: 5 mg Furosemide (Lasix) 40 mg PO DAILY [facility] Last Admin: 01/26/19 10:56 Dose: 40 mg Guaifenesin/Dextromethorphan (Robitussin Dm) 5 ml PO Q4H PRN PRN Reason: Cough Last Admin: 01/26/19 10:57 Dose: 5 ml Losartan Potassium (Cozaar) 25 mg PO DAILY [facility] Last Admin: 01/26/19 10:56 Dose: 25 mg Prednisone (Prednisone Tab) 20 mg PO 0800,1800 [facility] Last Admin: 01/26/19 17:02 Dose: 20 mg Tiotropium [place] (Spiriva) 18 mcg IH DAILY [facility] Last Admin: 01/26/19 10:56 Dose: 18 mcg Assessment and Plan - Assessment and Plan (Free Text) Plan: Pt seen and examined by me. I have reviewed the note of the medical insurance verifier and I agree with it. I have discussed the assessment and plan with the resident. I have reviewed the medications and the last labs.
--- NOTE | 2019-01-26 22:36 | PN ---
DATE: 01/26/2019 SUBJECTIVE: The patient was seen and examined. I do agree with the note of the certified medical records coder. I was involved in the plan of care. The patient has decreased function and has been getting physical therapy. She is improving. She has COPD. She is on Brovana, Spiriva, and Pulmicort. The patient is on Aricept for her dementia. She is going to be on verapamil and losartan for her hypertension. She is scheduled to go home in 2 days. She has no pain. She does have a cough and is on cough medications. Alen Webb MD
[2019-01-27] MEDS: Arformoterol 15 mcg/2 ml Inh Sol IH SCH ×2 (07:17→20:55)
[2019-01-27] MEDS: Budesonide 0.25 mg/2 ml Inhal Susp UD IH SCH ×2 (07:17→20:57)
[2019-01-27 08:22] LABS: HEMOGLOBIN 12.3 g/dL (12.0-16.0); MEAN CELL VOLUME 94.3 fl (80.0-105.0); MEAN CORPUSCULAR HEMOGLOBIN 31.9 pg (25.0-35.0); MEAN CORPUSCULAR HGB CONC 33.9 g/dl (31.0-37.0); MEAN PLATELET VOLUME 10.8 fl (7.0-11.0); RBC 3.85 10^6/uL (3.5-6.1); RED CELL DISTRIBUTION WIDTH 14.3 % (11.5-14.5); WHITE BLOOD COUNT 14.2 10^3/uL (4.5-11.0)
[2019-01-27 08:33] LABS: ALT/SGPT 40 U/L (7-56)
[2019-01-27 08:38] LABS: ALB/GLOB RATIO 1.1 (1.1-1.8); ALBUMIN 4.1 g/dL (3.0-4.8); AST/SGOT 40 U/L (14-36); BLOOD UREA NITROGEN 30 mg/dL (7-21); CALCIUM 9.9 mg/dL (8.4-10.5); GFR NON-AFRICAN AMERICAN > 60
[2019-01-27] MEDS: Tiotropium 18 mcg Cap For Inhalation IH SCH (09:45)
[2019-01-27] MEDS: Furosemide 40 mg/5 mL Oral Soln UD PO SCH (09:47)
--- NOTE | 2019-01-27 11:36 | PN ---
DATE: 01/27/2019 SUBJECTIVE: The patient has no complaints of any chest pain or shortness of breath. No headaches. PHYSICAL EXAMINATION: VITAL SIGNS: Temperature is 98.2, pulse of 80, blood pressure is 151/89, respirations 18. GENERAL: The patient is lying in bed, flat, comfortable. HEENT: No oral lesion. Anicteric sclerae. Moist mucosa. NECK: No JVD, adenopathy, or thyromegaly. CARDIOVASCULAR: S1 and S2, regular. No murmurs, rubs, or gallops. LUNGS: Clear to auscultation bilaterally. No wheeze, rales, or rhonchi. ABDOMEN: Bowel sounds are positive, soft, nontender and nondistended. EXTREMITIES: No cyanosis, clubbing or edema. LABORATORY DATA: White count is 14.2, hemoglobin is . ASSESSMENT: 1. Gait dysfunction. 2. Syncope secondary to vasovagal, resolved. 3. Chronic obstructive pulmonary disease. 4. Dementia, Alzheimer's type. 5. Gastroesophageal reflux disease. PLAN: The patient is currently on albuterol for the chronic obstructive pulmonary disease. The patient is on losartan for hypertension. She is going to continue with arformoterol for the chronic obstructive pulmonary disease. The patient is receiving Tylenol as needed. She is on oxygen therapy. The patient is going to be continuing on prednisone. I will decrease the patient's prednisone to once a day. She is to be discharged tomorrow. Alen Webb MD
[2019-01-27] MEDS: guaiFENesin DM 100 mg-10 mg/5 ml UD PO PRN (21:24)
[2019-01-28 06:20] VITALS: PULSE 80; TEMP 97.3; O2SAT 95
[2019-01-28] MEDS: Budesonide 0.25 mg/2 ml Inhal Susp UD IH SCH (07:11)
[2019-01-28] MEDS: Arformoterol 15 mcg/2 ml Inh Sol IH SCH (07:11)
[2019-01-28] MEDS: Furosemide 40 mg/5 mL Oral Soln UD PO SCH (09:54)
[2019-01-28] MEDS: Tiotropium 18 mcg Cap For Inhalation IH SCH (09:55)
[2019-01-28 09:58] VITALS: BP 127/73
--- NOTE | 2019-01-28 12:04 | DS ---
HISTORY OF PRESENT ILLNESS: The patient is a 78-year-old female who had come to the hospital because of syncopal episode. She found to have a vasovagal episode and was discharged to the transitional care unit for rehab. She is done fairly well with walking. She had a COPD exacerbation. She has been on prednisone that has been tapered off. She is currently comfortable. She has no complaints of any headaches or dizziness. No nausea. No vomiting. PHYSICAL EXAMINATION: VITAL SIGNS: Temperature is 97.3, pulse of 80, blood pressure 137/84, respirations are 18 and O2 saturation 95%. GENERAL: The patient is lying in bed, flat, comfortable. HEENT: No oral lesion. Anicteric sclerae. Moist mucosa. NECK: No JVD, adenopathy, or thyromegaly. CARDIOVASCULAR: S1 and S2, regular. No murmurs, rubs, or gallops. LUNGS: Clear to auscultation bilaterally. No wheeze, rales, or rhonchi. ABDOMEN: Bowel sounds are positive, soft, nontender and nondistended. EXTREMITIES: No cyanosis, clubbing or edema. ASSESSMENT: 1. Gait dysfunction. 2. Syncope secondary to vasovagal, resolved. 3. Chronic obstructive pulmonary disease. 4. Dementia, Alzheimer's type. 5. Gastroesophageal reflux disease. PLAN: The patient is currently comfortable. He is going to be on Brovana. She is on Aricept for dementia. She is on prednisone, been tapered. She is on Spiriva for her COPD. She is on Tessalon Perles. She is on a regular diet. Alen Webb MD
== END 2019-01-28 11:18 | disposition home or self-care (01) | DRG 556 ==
LOC: TRCU 19:48
PROVIDERS: ADMIT Internal Medicine Nephrology; ATTEND Internal Medicine Nephrology
PROC: F07Z9FZ Gait Training/Functional Ambulation Treatment using Assistive, Adaptive, Supportive or Protective Equipment (ICD-10-PCS; principal; 2019-01-21)
PROC: F08Z4FZ Home Management Treatment using Assistive, Adaptive, Supportive or Protective Equipment (ICD-10-PCS; 2019-01-21)
PROC: 3E0F7GC Introduction of Other Therapeutic Substance into Respiratory Tract, Via Natural or Artificial Opening (ICD-10-PCS; 2019-01-21)
DX: R26.2 Difficulty in walking, not elsewhere classified (principal); J44.9 Chronic obstructive pulmonary disease, unspecified; E03.9 Hypothyroidism, unspecified; F02.80 Dementia in other diseases classified elsewhere, unspecified severity, without behavioral disturbance, psychotic disturbance, mood disturbance, and anxiety; G30.9 Alzheimer's disease, unspecified; I10 Essential (primary) hypertension; K21.9 Gastro-esophageal reflux disease without esophagitis; K27.9 Peptic ulcer, site unspecified, unspecified as acute or chronic, without hemorrhage or perforation; Z87.891 Personal history of nicotine dependence